=== PATIENT | female | born 1980 | race African-American/Black ===

== ENCOUNTER → 2022-09-19 12:58 | Outpatient (BNVA) | payer BC, SELFPAY | PROVIDERS: PCP Internal Medicine; Visit Provider Internal Medicine Rheumatology | DX: Z13.89 Encounter for screening for other disorder (principal) ==

== ENCOUNTER 2022-12-19 15:18 | Outpatient (REF) | payer BC, MEDICAID, SELFPAY ==
[2022-12-19 15:32] LABS: MANUAL DIFF FLAG NO
[2022-12-19 16:41] LABS: Basophils Absolute Auto 0.1 X10*3/uL (0.0-0.2); Basophils Percent Auto 1.1 % (0-2); Eosinophils Absolute Auto 0.3 X10*3/uL (0.0-0.4); Eosinophils Percent Auto 2.8 % (0-4); Hematocrit 34.7 % (37.0-47.0); Imm Gran Abs Auto 0.02 X10*3/uL (0.00-0.03); Imm Gran Pct Auto 0.2 % (0.0-0.4); Lymphocytes Absolute Auto 4.3 X10*3/uL (1.2-4.9); Lymphocytes Percent Auto 39.5 % (20-40); Mean Corpuscular HGB Conc 31.7 g/dl (31.0-35.0); Mean Corpuscular Hemoglobin 27.5 pg (27.0-33.0); Mean Corpuscular Volume 86.8 fL (80.0-98.0); Mean Platelet Volume 11.1 fL (9.4-12.3); Monocytes Absolute Auto 0.6 X10*3/uL (0.1-1.2); Monocytes Percent Auto 5.6 % (2-11); Neutrophils Absolute Auto 5.5 x10*3/uL (2.0-8.3); Neutrophils Percent Auto 50.8 % (45-73); Platelet Count 432 X10*3/uL (160-400); Red Cell Distribution Width 14.6 % (11.0-16.0); White Blood Count 10.9 X10*3/uL (4.8-10.8)
[2022-12-19 17:09] LABS: Alanine Aminotransferase 12 U/L (0-31); Alkaline Phosphatase 52 U/L (39-117); Anion Gap 15 (12-20); Aspartate Amino Transferase 18 U/L (5-31); Bilirubin Total 0.3 mg/dL (0.0-1.0); Blood Urea Nitrogen 9 mg/dL (9-16); C Reactive Protein 0.15 mg/dL (< or = 0.50); Calcium 9.6 mg/dL (8.4-10.2); Carbon Dioxide 23 mmol/L (22-29); Chloride 106 mmol/L (96-108); Estimated Glomerular Filt Rate > 60; Glucose Random 92 mg/dL (60-115); Potassium 3.9 mmol/L (3.3-5.1); Sodium 140 mmol/L (135-145); Total Protein 7.4 g/dL (6.5-8.0)
[2022-12-19 18:11] LABS: Erythrocyte Sedimentation Rate 49 MM/HR (0-20)
== END 2022-12-19 15:19 | disposition home or self-care (01) ==
LOC: HO.LAB 15:18
PROVIDERS: Visit Provider Internal Medicine Rheumatology
DX: M05.9 Rheumatoid arthritis with rheumatoid factor, unspecified (principal); Z79.899 Other long term (current) drug therapy
CPT/HCPCS: 36415; 80053; 85025; 85652; 86140

== ENCOUNTER 2023-01-19 07:52 | Outpatient (AMB) | payer BC, SELFPAY ==
--- NOTE | 2023-01-19 07:55 | MHC.OFFVIS ---
Intake Vital Signs 01/19/23 08:06 Height 5 ft 7 in Weight 186 lb 4.65 oz BMI 29.2 BP 108/62 Blood Pressure Location Rt brachial Position Sitting Pulse 76 Pulse Source Pulse Oximeter Temp 97.9 F Temp Source Skin Pulse Oximetry (%) 98 Oxygen Delivery Method Room Air Intake Visit Reasons: RA Intake Note: Patient here to yearly RA follow up. Patient requesting note for work stating she has RA. Will obtain FMLA form for flare ups. c/o dann hand pain, right shoulder pain [employer] Supervisor Required: No Accompanied by: Self / Same As Patient Allergies indomethacin [From Indocin] Adverse Reaction (Unknown, Unverified 01/19/23 07:55) Hives HPI HPI Comments History of Present Illness Details Patient returns for evaluation of her seropositive rheumatoid arthritis. When I had last seen her in September we agreed to restart her methotrexate 10 mg weekly. 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 She therefore did not restart the methotrexate. For most of the summer she had occasional flare-ups of RA that were minimal but over the last week she has had pain and swelling in the left shoulder and in the left wrist. She does take some djuq-kot-eoihlky analgesics for that. She also was seen in the ER with some flank pain in November. CT scan showed a kidney stone in the kidney but no passing stone. She apparently did have some hematuria so the concern was that she had passed a kidney stone. She does not recall prior problems with kidney stones. [facility] Medical History (Updated 01/19/23 @ 08:05 by Marvin Flower MD) ADHD (attention deficit hyperactivity disorder), inattentive type Generalized anxiety disorder History of COVID-19 Iron deficiency anemia Seropositive rheumatoid arthritis Surgical History Hx of tubal ligation Family History Mother Rheumatoid arthritis Diabetes History of thyroid disorder Father History of thyroid disorder Brother Rheumatoid arthritis Social History (Updated 01/19/23 @ 08:06 by CANDACE Pollard) Alcohol intake: current Alcohol intake frequency: holidays/special occasions only Alcohol type: wine Patient Tobacco Use Status: Never used Tobacco Current occupational status: employed 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 Details: Flank pain thought to be a kidney stone as noted above. Negative for dysuria, hematuria, nocturia, decreased force/flow and genital discharge Skin/Breast Details: Negative for itching, rash, hives, Raynaud's symptoms, sun sensitivity, and skin cancer Psych Details: Negative for anxiety, depression and stress Valentin/Lymph Details: Negative for excessive bruising or bleeding. Physical Exam Vital Signs: Last Vital Signs Temp 97.9 F 01/19/23 08:06 Pulse 76 01/19/23 08:06 BP 108/62 01/19/23 08:06 Pulse Ox 98 01/19/23 08:06 Oxygen Delivery Method Room Air 01/19/23 08:06 BMI result Body Mass Index 29.2 APPEARANCE: Patient in no acute distress EYES no redness, pupils equal and reactive to light, eyelids normal ABD: Normal bowel sounds, no organomegaly, masses or tenderness. No no CVA tenderness. EXTREMITIES: No edema, no calf tenderness, normal peripheral pulses. NEURO: Oriented and alert x3. No focal weakness. Reflexes symmetric. Gait normal. SKIN: No inflammatory or neoplastic lesions. Normal color and turgor JOINT EXAM: ?? Cervical Spine:.? Full range of motion without pain; no tenderness. Thoracic Spine:.? No scoliosis.? No tenderness on palpation. Lumbar Spine:.? Alignment normal.? Full range of motion without pain, no tenderness. Chest Wall:.? No tenderness, swelling, increased warmth or erythema. Hands:? Right: Normal pain-free range of motion without swelling or tenderness. No flexor tendon triggering, thenar atrophy or sensory loss.? Left:? Normal pain-free range of motion without tenderness, swelling, increased warmth or erythema. There is no flexor tendon triggering, thenar atrophy or sensory loss. Wrists:. Left: Mild to moderate pain with flexion extension at 30 degrees. There is tmcb-pf-[id number] tenderness with no swelling or redness. Right:? Normal pain-free range of motion without tenderness, swelling, increased warmth or erythema. Elbows:. Normal pain-free range of motion without tenderness, swelling, increased warmth or erythema. Shoulders:.??Left: Moderate pain with abduction at 90 degrees or with attempts at internal or external rotation. Uogj-dg-sorxjgvj anterior and subacromial tenderness without abductor weakness or adenopathy. No swelling or redness. Right: Full range of motion without pain. No tenderness, weakness, swelling, increased warmth or erythema. Hips:.? Full range of motion without pain. Hip bursa:.? No tenderness. Knees:.??Left: Mild discomfort with extremes of flexion extension.? There is mild medial compartment tenderness without redness or swelling.? There is no patellofemoral crepitus.? Right:? Normal pain-free range of motion without tenderness, swelling, increased warmth or erythema.? There is no effusion or crepitation Ankles:.? Normal pain-free range of motion without tenderness, swelling, increased warmth or erythema. Feet:.? Normal pain-free range of motion without tenderness, swelling, increased warmth or erythema. Tender points:.? No tenderness to digital palpation at the occiput, trapezius, second rib, lateral epicondyle, knees, greater trochanter and gluteal area bilaterally. ? 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 RF positive. CCP positive. Shoulders, hands. On methotrexate approx. 2011 to mid 2012 stopped meds in (2014) Tubal ligation 02/02: Hydroxychloroquine started - stopped Feb 2016 - recurrent URI 07/10: methotrexate restarted - missed doses in mid 2021 -2022 due to covid, no prescriber Code(s): M05.9 - Rheumatoid arthritis with rheumatoid factor, unspecified Plan She has some tender joints today. I think she should be back on the low-dose of methotrexate. We could consider a milder agent such as hydroxychloroquine but I think she had that in the past and it was not all that effective. I explained to her that the methotrexate or any other effective drug for RA is likely to cause some degree of immunosuppression. She should keep her immunization status up-to-date and wear a mask at work if she is exposed to sick people. She should see a urologist to follow through with a kidney stone. I think she is going to now restart the methotrexate 10 mg weekly. We will check lab work before next visit in 2 months. I am going to add lab work today as well as an iron level to see if we can explain why she is mildly anemic. It could be just results of her active disease. Orders: Orders IRON PROFILE Today D50.9 - Iron deficiency anemia, unspecified Alanine Aminotransferase Today M05.9 - Rheumatoid arthritis with rheumatoid factor, unspecified, Z79.899 - Other residential (current) drug therapy Aspartate Amino Transferase Today M05.9 - Rheumatoid arthritis with rheumatoid factor, unspecified, Z79.899 - Other residential (current) drug therapy Creatinine Today M05.9 - Rheumatoid arthritis with rheumatoid factor, unspecified, Z79.899 - Other residential (current) drug therapy C Reactive Protein Today M05.9 - Rheumatoid arthritis with rheumatoid factor, unspecified Complete Blood Count Auto Diff Today M05.9 - Rheumatoid arthritis with rheumatoid factor, unspecified, Z79.899 - Other superintendent marine [employer] (current) drug therapy Erythrocyte Sedimentation Rate Today M05.9 - Rheumatoid arthritis with rheumatoid factor, unspecified Medications: Refilled methotrexate sodium 10 mg (4 x 2.5 mg) PO QWEEK 48 tabs 1RF M05.9 - Rheumatoid arthritis with rheumatoid factor, unspecified Coding Level of Care Code Est Pt Level 3 (63645) Diagnoses correction use of drug Z79.899 Kidney stone on left side N20.0 Iron deficiency anemia D50.9 Seropositive rheumatoid arthritis M05.9
[2023-01-19 08:06] VITALS: BP 108/62; PULSE 76; TEMP 36.6; O2SAT 98; BMI 29.2
== END 2023-01-19 08:25 | disposition home or self-care (01) ==
PROVIDERS: Visit Provider Internal Medicine Rheumatology
DX: M05.79 Rheumatoid arthritis with rheumatoid factor of multiple sites without organ or systems involvement (principal); Z79.899 Other long term (current) drug therapy; N20.0 Calculus of kidney; D50.9 Iron deficiency anemia, unspecified
CPT/HCPCS: 99214

== ENCOUNTER 2023-01-19 07:52 | Outpatient (REF) | payer BC, SELFPAY ==
[2023-01-19 08:39] LABS: MANUAL DIFF FLAG NO
[2023-01-19 09:54] LABS: Basophils Absolute Auto 0.1 X10*3/uL (0.0-0.2); Basophils Percent Auto 0.6 % (0-2); Eosinophils Absolute Auto 0.4 X10*3/uL (0.0-0.4); Eosinophils Percent Auto 3.2 % (0-4); Hematocrit 34.6 % (37.0-47.0); Hemoglobin 11.1 g/dl (12.0-16.0); Imm Gran Abs Auto 0.03 X10*3/uL (0.00-0.03); Imm Gran Pct Auto 0.3 % (0.0-0.4); Lymphocytes Absolute Auto 4.6 X10*3/uL (1.2-4.9); Mean Corpuscular HGB Conc 32.1 g/dl (31.0-35.0); Mean Corpuscular Hemoglobin 27.9 pg (27.0-33.0); Mean Corpuscular Volume 86.9 fL (80.0-98.0); Mean Platelet Volume 10.5 fL (9.4-12.3); Monocytes Absolute Auto 0.8 X10*3/uL (0.1-1.2); Monocytes Percent Auto 6.6 % (2-11); Neutrophils Absolute Auto 5.6 x10*3/uL (2.0-8.3); Neutrophils Percent Auto 49.3 % (45-73); Platelet Count 444 X10*3/uL (160-400); Red Blood Count 3.98 X10*6/uL (4.20-5.50); Red Cell Distribution Width 14.8 % (11.0-16.0); White Blood Count 11.4 X10*3/uL (4.8-10.8)
[2023-01-19 10:13] LABS: Alanine Aminotransferase 10 U/L (0-31); Aspartate Amino Transferase 17 U/L (5-31); C Reactive Protein 0.46 mg/dL (< or = 0.50); Estimated Glomerular Filt Rate > 60; Iron 89 mcg/dL (30-160); Percent Iron Saturation 27 % (15-50); Total Iron Binding Capacity 325 mcg/dL (228-428); Unsaturated Iron Binding 236 ug/dL
[2023-01-19 10:36] LABS: Erythrocyte Sedimentation Rate 65 MM/HR (0-20)
== END 2023-01-19 07:53 | disposition home or self-care (01) ==
LOC: HO.LAB 07:52
PROVIDERS: Visit Provider Internal Medicine Rheumatology
DX: N20.0 Calculus of kidney (principal); D50.9 Iron deficiency anemia, unspecified; M05.9 Rheumatoid arthritis with rheumatoid factor, unspecified; Z79.899 Other long term (current) drug therapy
CPT/HCPCS: 36415; 82565; 83540; 84450; 84460; 85025; 85652; 86140

== ENCOUNTER 2023-05-17 13:50 | Outpatient (REF) | payer BC, SELFPAY ==
[2023-05-17 13:57] LABS: MANUAL DIFF FLAG NO
[2023-05-17 14:58] LABS: Basophils Absolute Auto 0.1 X10*3/uL (0.0-0.2); Basophils Percent Auto 0.9 % (0-2); Eosinophils Absolute Auto 0.4 X10*3/uL (0.0-0.4); Eosinophils Percent Auto 3.9 % (0-4); Hematocrit 33.4 % (37.0-47.0); Hemoglobin 10.6 g/dl (12.0-16.0); Imm Gran Abs Auto 0.02 X10*3/uL (0.00-0.03); Imm Gran Pct Auto 0.2 % (0.0-0.4); Lymphocytes Absolute Auto 3.9 X10*3/uL (1.2-4.9); Lymphocytes Percent Auto 41.3 % (20-40); Mean Corpuscular HGB Conc 31.7 g/dl (31.0-35.0); Mean Corpuscular Hemoglobin 27.6 pg (27.0-33.0); Mean Platelet Volume 10.8 fL (9.4-12.3); Monocytes Absolute Auto 0.6 X10*3/uL (0.1-1.2); Monocytes Percent Auto 6.4 % (2-11); Neutrophils Absolute Auto 4.5 x10*3/uL (2.0-8.3); Neutrophils Percent Auto 47.3 % (45-73); Platelet Count 409 X10*3/uL (160-400); Red Blood Count 3.84 X10*6/uL (4.20-5.50); Red Cell Distribution Width 15.2 % (11.0-16.0); White Blood Count 9.5 X10*3/uL (4.8-10.8)
[2023-05-17 16:17] LABS: Erythrocyte Sedimentation Rate 48 MM/HR (0-20)
[2023-05-17 16:20] LABS: Alanine Aminotransferase 9 U/L (0-31); Aspartate Amino Transferase 15 U/L (5-31); Estimated Glomerular Filt Rate > 60
== END 2023-05-17 13:51 | disposition home or self-care (01) ==
LOC: HO.LAB 13:50
PROVIDERS: PCP Internal Medicine; Visit Provider Internal Medicine Rheumatology
DX: M05.9 Rheumatoid arthritis with rheumatoid factor, unspecified (principal); Z79.899 Other long term (current) drug therapy
CPT/HCPCS: 36415; 82565; 84450; 84460; 85025; 85652; 86140

== ENCOUNTER 2023-05-18 10:56 | Outpatient (AMB) | payer BC, SELFPAY ==
[2023-05-18 10:57] VITALS: BP 112/78; PULSE 82; RESP 15; TEMP 36.5; BMI 28.8
--- NOTE | 2023-05-18 10:57 | MHC.OFFVIS ---
Intake Vital Signs 05/18/23 10:57 Height 5 ft 7 in Weight 183 lb 10.321 oz BMI 28.8 BP 112/78 Blood Pressure Location Lt brachial Position Sitting Respiration 15 Pulse 82 Pulse Source Palpation Temp 97.7 F Temp Source Tympanic Intake Visit Reasons: ra Allergies indomethacin [From Indocin] Adverse Reaction (Unknown, Unverified 05/18/23 11:07) Hives Medication List - Last Reconciled 05/18/23 by Chela Salomon RN albuterol sulfate 90 mcg/actuation 1 puff inhalation Q6H PRN betamethasone dipropionate 0.05% appl topical fluticasone propion-salmeterol 230-21 mcg/actuation (Advair HFA) 2 puffs inhalation BID fluticasone propionate 50 mcg/actuation 2 sprays intranasal DAILY folic acid 1 mg PO DAILY loratadine 10 mg PO DAILY methotrexate sodium 15 mg (6 x 2.5 mg) PO QWEEK montelukast 10 mg PO BEDTIME tiotropium bromide 1.25 mcg/actuation (Spiriva Respimat) 2 puffs inhalation DAILY HPI HPI Comments History of Present Illness Details The patient returns for evaluation of her rheumatoid arthritis. She remains on methotrexate 15 mg weekly, folic acid 1 mg daily, and occasional acetaminophen. She did have a flare-up of right shoulder pain a few weeks ago but it subsided after some Tylenol. She is on inhalers now and that has provided some stable control of her asthma. She has not had any significant recent infections. She has a low-grade anemia but is off the iron tablets now as the values in the previous testing showed her iron level was normal. [facility] Medical History History of COVID-19 Seropositive rheumatoid arthritis Iron deficiency anemia Generalized anxiety disorder ADHD (attention deficit hyperactivity disorder), inattentive type Surgical History Hx of tubal ligation Family History Mother Rheumatoid arthritis Diabetes History of thyroid disorder Father History of thyroid disorder Brother Rheumatoid arthritis Social History Alcohol intake: current Alcohol intake frequency: holidays/special occasions only Alcohol type: wine Patient Tobacco Use Status: Never used Tobacco Current occupational status: employed 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 Negative for appetite change, fever, chills, malaise Eyes Details: Negative for vision change, dry eyes,headaches and dizziness ENT Details: Negative for hearing change, tinnitus, oral ulcer, nose bleeds and oral dryness. Card Details: Negative chest pain, edema and syncope Resp Details: Negative for SOB, cough and wheezing GI Details: Negative indigestion/heartburn, nausea, abdominal pain, bowel changes, diarrhea, constipation and bloody stool. Endo Details: Negative for polyuria and polydypsia Valentin/Lymph Details: Negative for excessive bruising or bleeding. Physical Exam Vital Signs: Last Vital Signs Temp 97.7 F 05/18/23 10:57 Pulse 82 05/18/23 10:57 Resp 15 05/18/23 10:57 BP 112/78 05/18/23 10:57 BMI result Body Mass Index 28.8 APPEARANCE: Patient in no acute distress EYES no redness, pupils equal and reactive to light, eyelids normal EXTREMITIES: No edema, no calf tenderness, normal peripheral pulses. JOINT EXAM: ?? Cervical Spine:.? Full range of motion without pain; no tenderness. Thoracic Spine:.? No scoliosis.? No tenderness on palpation. Lumbar Spine:.? Alignment normal.? Full range of motion without pain, no tenderness. Chest Wall:.? No tenderness, swelling, increased warmth or erythema. Hands:? Right: Normal pain-free range of motion without swelling or tenderness. No flexor tendon triggering, thenar atrophy or sensory loss.? Left:? Normal pain-free range of motion without tenderness, swelling, increased warmth or erythema. There is no flexor tendon triggering, thenar atrophy or sensory loss. Wrists:. Left: Mild to moderate pain with flexion extension at 30 degrees. There is [id number]-kk-[id number] tenderness with no swelling or redness. Right:? Normal pain-free range of motion without tenderness, swelling, increased warmth or erythema. Elbows:. Normal pain-free range of motion without tenderness, swelling, increased warmth or erythema. Shoulders:.??Right: Slight discomfort with extremes of normal abduction or internal rotation. There is minimal anterior tenderness without adenopathy, swelling or abductor weakness. Left:: Full range of motion without pain. No tenderness, weakness, swelling, increased warmth or erythema. Hips:.? Full range of motion without pain. Hip bursa:.? No tenderness. Knees:.??Left: Mild discomfort with extremes of flexion or extension.? There is mild medial compartment tenderness without redness or swelling.? There is no patellofemoral crepitus.? Right:? Normal pain-free range of motion without tenderness, swelling, increased warmth or erythema.? There is no effusion or crepitation Ankles:.? Normal pain-free range of motion without tenderness, swelling, increased warmth or erythema. Feet:.? Normal pain-free range of motion without tenderness, swelling, increased warmth or erythema. Tender points:? No tenderness to digital palpation at the occiput, trapezius, second rib, lateral epicondyle, knees, greater trochanter and gluteal area bilaterally. ? 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 RF positive. CCP positive. Shoulders, hands. On methotrexate approx. 2011 to mid 2012 stopped meds in (2013) Tubal ligation 02/02: Hydroxychloroquine started - stopped Feb 2016 - recurrent URI 07/10: methotrexate restarted - missed doses in mid 2021 -2022 due to covid, no prescriber Code(s): M05.9 - Rheumatoid arthritis with rheumatoid factor, unspecified Plan Rheumatoid arthritis with good control of synovitis with current regimen. She does not seem to have any side effects with these medications so we will continue them as above. She runs still a low-grade anemia but has no microcytosis. The last iron levels were normal. We will keep an eye on this with another check on iron levels with her next blood work in about 3 months. She will continue with the methotrexate as above. I reviewed with her some rhocb-ed-pkszjj exercises for the shoulders. She seems to keep getting intermittent impingement and rotator cuff symptoms in either shoulder. Hopefully with bit more regular exercise program these can be avoided. Physical therapy could also be considered. A return visit at 3 months was recommended. Orders: Orders Erythrocyte Sedimentation Rate 1 Month M05.9 - Rheumatoid arthritis with rheumatoid factor, unspecified C Reactive Protein 1 Month M05.9 - Rheumatoid arthritis with rheumatoid factor, unspecified Alanine Aminotransferase Today M05.9 - Rheumatoid arthritis with rheumatoid factor, unspecified, Z79.899 - Other [facility] (current) drug therapy Aspartate Amino Transferase Today M05.9 - Rheumatoid arthritis with rheumatoid factor, unspecified, Z79.899 - Other [facility] (current) drug therapy Complete Blood Count Auto Diff 1 Month M05.9 - Rheumatoid arthritis with rheumatoid factor, unspecified, Z79.899 - Other salvage determiner (current) drug therapy Creatinine Today M05.9 - Rheumatoid arthritis with rheumatoid factor, unspecified, Z79.899 - Other [facility] (current) drug therapy Coding Level of Care Code Est Pt Level 3 (89429) Diagnoses emt intermediate use of drug Z79.899 Seropositive rheumatoid arthritis M05.9
== END 2023-05-18 11:45 | disposition home or self-care (01) ==
PROVIDERS: PCP Internal Medicine; Visit Provider Internal Medicine Rheumatology
DX: M05.79 Rheumatoid arthritis with rheumatoid factor of multiple sites without organ or systems involvement (principal); Z79.631 Long term (current) use of antimetabolite agent
CPT/HCPCS: 99214

== ENCOUNTER → 2023-05-18 10:56 | Outpatient (BNVA) | payer BC, SELFPAY | PROVIDERS: PCP Internal Medicine; Visit Provider Internal Medicine Rheumatology ==

== ENCOUNTER 2023-09-23 08:20 | Outpatient (REF) | payer BC, SELFPAY ==
[2023-09-23 08:37] LABS: MANUAL DIFF FLAG NO
[2023-09-23 08:57] LABS: Basophils Absolute Auto 0.1 X10*3/uL (0.0-0.2); Basophils Percent Auto 0.9 % (0-2); Eosinophils Absolute Auto 0.6 X10*3/uL (0.0-0.4); Imm Gran Abs Auto 0.03 X10*3/uL (0.00-0.03); Imm Gran Pct Auto 0.3 % (0.0-0.4); Lymphocytes Absolute Auto 3.9 X10*3/uL (1.2-4.9); Lymphocytes Percent Auto 43.7 % (20-40); Mean Corpuscular HGB Conc 31.3 g/dl (31.0-35.0); Mean Corpuscular Hemoglobin 26.5 pg (27.0-33.0); Mean Corpuscular Volume 84.7 fL (80.0-98.0); Mean Platelet Volume 10.1 fL (9.4-12.3); Monocytes Absolute Auto 0.6 X10*3/uL (0.1-1.2); Monocytes Percent Auto 6.7 % (2-11); Neutrophils Absolute Auto 3.7 x10*3/uL (2.0-8.3); Neutrophils Percent Auto 41.4 % (45-73); Platelet Count 473 X10*3/uL (160-400); Red Blood Count 3.78 X10*6/uL (4.20-5.50); Red Cell Distribution Width 15.4 % (11.0-16.0); White Blood Count 8.8 X10*3/uL (4.8-10.8)
[2023-09-23 09:47] LABS: Alanine Aminotransferase 15 U/L (0-31); Aspartate Amino Transferase 18 U/L (5-31); C Reactive Protein 0.21 mg/dL (< or = 0.50); Estimated Glomerular Filt Rate > 60
[2023-09-23 09:51] LABS: Erythrocyte Sedimentation Rate 57 MM/HR (0-20)
== END 2023-09-23 08:21 | disposition home or self-care (01) ==
LOC: HO.LAB 08:20
PROVIDERS: PCP Internal Medicine; Visit Provider Internal Medicine Rheumatology
DX: M05.9 Rheumatoid arthritis with rheumatoid factor, unspecified (principal); Z79.899 Other long term (current) drug therapy
CPT/HCPCS: 36415; 82565; 84450; 84460; 85025; 85652; 86140

== ENCOUNTER 2023-09-28 15:33 | Outpatient (REF) | payer BC, SELFPAY ==
[2023-09-28 16:56] LABS: MANUAL DIFF FLAG NO
[2023-09-28 18:24] LABS: Basophils Absolute Auto 0.1 X10*3/uL (0.0-0.2); Basophils Percent Auto 0.9 % (0-2); Eosinophils Absolute Auto 0.5 X10*3/uL (0.0-0.4); Eosinophils Percent Auto 5.4 % (0-4); Hematocrit 31.1 % (37.0-47.0); Imm Gran Abs Auto 0.01 X10*3/uL (0.00-0.03); Imm Gran Pct Auto 0.1 % (0.0-0.4); Lymphocytes Absolute Auto 4.3 X10*3/uL (1.2-4.9); Lymphocytes Percent Auto 42.7 % (20-40); Mean Corpuscular HGB Conc 32.2 g/dl (31.0-35.0); Mean Corpuscular Hemoglobin 27.4 pg (27.0-33.0); Mean Corpuscular Volume 85.2 fL (80.0-98.0); Mean Platelet Volume 10.4 fL (9.4-12.3); Monocytes Absolute Auto 0.6 X10*3/uL (0.1-1.2); Monocytes Percent Auto 6.2 % (2-11); Neutrophils Absolute Auto 4.5 x10*3/uL (2.0-8.3); Neutrophils Percent Auto 44.7 % (45-73); Platelet Count 499 X10*3/uL (160-400); Red Blood Count 3.65 X10*6/uL (4.20-5.50); Red Cell Distribution Width 15.9 % (11.0-16.0)
[2023-09-28 18:55] LABS: Alanine Aminotransferase 12 U/L (0-31); Albumin Level 4.1 g/dL (3.5-5.0); Alkaline Phosphatase 67 U/L (39-117); Anion Gap 13 (12-20); Aspartate Amino Transferase 17 U/L (5-31); Bilirubin Total 0.2 mg/dL (0.0-1.0); Blood Urea Nitrogen 10 mg/dL (9-16); C Reactive Protein 0.24 mg/dL (< or = 0.50); Calcium 9.3 mg/dL (8.4-10.2); Carbon Dioxide 24 mmol/L (22-29); Chloride 108 mmol/L (96-108); Estimated Glomerular Filt Rate > 60; Glucose Random 87 mg/dL (60-115); Iron 14 mcg/dL (30-160); Percent Iron Saturation 4 % (15-50); Potassium 3.8 mmol/L (3.3-5.1); Sodium 141 mmol/L (135-145); Total Iron Binding Capacity 346 mcg/dL (228-428); Total Protein 7.7 g/dL (6.5-8.0); Unsaturated Iron Binding 332 ug/dL; Uric Acid 3.2 mg/dL (2.4-5.7)
[2023-09-28 19:06] LABS: Erythrocyte Sedimentation Rate 57 MM/HR (0-20)
[2023-09-28 19:12] LABS: Ferritin 9 ng/mL (10-250)
[2023-09-28 19:47] LABS: Rheumatoid Factor 911.1 IU/mL (<15.0)
[2023-09-29 03:56] LABS: HBc Num1 0.19 S/CO (0.00-0.79); HBsAGNum1 0.24 S/CO (0.00-0.99); Hepatitis B Core Antibody Nonreactive (Nonreactive); Hepatitis B Surface Antigen Negative (Negative); ~HepC Num1 0.26 S/CO (0.00-0.79); ~Hepatitis B Surface Antibody REACTIVE (Nonreactive); ~Hepatitis C Antibody Nonreactive (Nonreactive)
[2023-09-29 04:27] LABS: Hepatitis A Antibody IgM 0.29 Index (0-0.79); ~Hepatitis A Antibody IgM Nonreactive (Nonreactive)
[2023-10-01 08:18] LABS: Anti Nuclear Antibody Screen NEGATIVE (NEGATIVE)
[2023-10-01 10:03] LABS: Transferrin 318 mg/dL (188-341)
[2023-10-02 14:33] LABS: Cyclic Citrullinated Peptide >250 UNITS
[2023-10-03 10:48] LABS: IgA 363 mg/dL (47-310); IgG 1551 mg/dL (600-1640); IgM 245 mg/dL (50-300)
[2023-10-03 16:29] LABS: Vitamin D 25-OH, D2 <4 ng/mL; Vitamin D 25-OH, D3 13 ng/mL; Vitamin D 25-OH, Total 13 ng/mL (30-100)
[2023-10-03 17:19] LABS: Complement C3 41 mg/dL (83-193)
[2023-10-03 17:59] LABS: Prot Elec - Alpha1 0.3 g/dL (0.2-0.3); Prot Elec - Alpha2 0.6 g/dL (0.5-0.9); Prot Elec - Beta 1 0.5 g/dL (0.4-0.6); Prot Elec - Beta 2 0.4 g/dL (0.2-0.5); Prot Elec - Gamma 1.4 g/dL (0.8-1.7); Prot Elec - Total Protein 7.1 g/dL (6.1-8.1)
[2023-10-05 08:04] LABS: Anti DNA DS Antibody 2 IU/mL; Antibody to SS-A Antigen <1.0 NEG AI (<1.0 NEG); Antibody to SS-B Antigen <1.0 NEG AI (<1.0 NEG); SM/Ribonucleoprotein Ab <1.0 NEG AI (<1.0 NEG); Scleroderma 70 Antibody <1.0 NEG AI (<1.0 NEG); Smith Protein <1.0 NEG AI (<1.0 NEG)
== END 2023-09-28 15:34 | disposition home or self-care (01) ==
LOC: HO.LAB 15:33
PROVIDERS: PCP Internal Medicine; Visit Provider Nurse Practitioner Family
DX: M05.9 Rheumatoid arthritis with rheumatoid factor, unspecified (principal); R70.0 Elevated erythrocyte sedimentation rate; E55.9 Vitamin D deficiency, unspecified; D50.8 Other iron deficiency anemias; Z79.899 Other long term (current) drug therapy
CPT/HCPCS: 36415; 80053; 82306; 82550; 82728; 82784; 83540; 84165; 84466; 84550; 85025; 85652; 86038; 86140; 86160; 86200; 86225; 86235; 86334; 86431; 86704; 86706; 86709; 86803; 87340

== ENCOUNTER 2023-09-28 15:33 | Outpatient (AMB) | payer BC, SELFPAY ==
--- NOTE | 2023-09-28 15:44 | MHC.OFFVIS ---
Vital Signs 09/28/23 15:51 Height 5 ft 7 in Weight 193 lb 12.581 oz BMI 30.3 BP 122/80 Pulse 70 Pulse Source Pulse Oximeter Pulse Oximetry (%) 99 Oxygen Delivery Method Room Air Intake Visit Reasons: RA/cm Intake Note: Patient last seen 05/18/[address] Flower, presents today for follow up and test results. Patient states she has been experiencing discoloration on both hands for 2 months. Her iron levels have been low as well. Quality Control Checker Required: No Accompanied by: Self / Same As Patient Allergies indomethacin [From Indocin] Adverse Reaction (Unknown, Unverified 09/28/23 15:44) Hives HPI Comments Details: Ms. Morales 43-year-old female returns for follow-up of her rheumatoid arthritis. She is currently on methotrexate 15 mg weekly, folic acid 1 mg daily, and occasional acetaminophen. She continues with a flare-up to her knees especially when she walks a lot and it is happening more frequently than normal. The swelling and soreness will last for a week and is helped by prednisone. She tends to want to push through the pain because she does not want to use the prednisone often. She she also gets flare-ups of right shoulder pain She continues on inhalers now and that has provided some stable control of her asthma. She has not had any significant recent infections. She complains of excessive fatigue. 05/18/2023 Dr. Flower: The patient returns for evaluation of her rheumatoid arthritis. She remains on methotrexate 15 mg weekly, folic acid 1 mg daily, and occasional acetaminophen. She did have a flare-up of right shoulder pain a few weeks ago but it subsided after some Tylenol. She is on inhalers now and that has provided some stable control of her asthma. She has not had any significant recent infections. She has a low-grade anemia but is off the iron tablets now as the values in the previous testing showed her iron level was normal. [facility] Medical History (Updated 10/06/23 @ 17:27 by ISIDRO Bolivar) Screening examination for infectious disease Hypovitaminosis D Elevated sed rate History of COVID-19 Seropositive rheumatoid arthritis Iron deficiency anemia Generalized anxiety disorder ADHD (attention deficit hyperactivity disorder), inattentive type Surgical History Hx of tubal ligation Family History Mother Rheumatoid arthritis Diabetes History of thyroid disorder Father History of thyroid disorder Brother Rheumatoid arthritis Social History Alcohol intake: current Alcohol intake frequency: holidays/special occasions only Alcohol type: wine Patient Tobacco Use Status: Never used Tobacco Current occupational status: employed 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 Regular rhythm, S1-S2 heard, no murmurs, rubs or gallops. LUNG:? Clear to percussion and auscultation EXTREMITIES: No edema, no calf tenderness, normal peripheral pulses. JOINT EXAM: Chest Wall:.? No tenderness, swelling, increased warmth or erythema. Hands:? Right: Normal pain-free range of motion without swelling or tenderness. No flexor tendon triggering, thenar atrophy or sensory loss.? Left:? Normal pain-free range of motion with mild tenderness, but no swelling, increased warmth or erythema. There is no flexor tendon triggering, thenar atrophy or sensory loss. Wrists:. Left: Mild to moderate pain with flexion extension at 30 degrees. There is [id number] tenderness with no swelling or redness. Right:? Normal pain-free range of motion without tenderness, swelling, increased warmth or erythema. Elbows:. Normal pain-free range of motion without tenderness, swelling, increased warmth or erythema. Shoulders:.??Right: Slight discomfort with extremes of normal abduction or internal rotation. There is minimal anterior tenderness without adenopathy, swelling or abductor weakness. Left:: Full range of motion without pain. No tenderness, weakness, swelling, increased warmth or erythema. Hips:.? Full range of motion without pain. Hip bursa:.? No tenderness. Knees:.??Left: discomfort with extremes of flexion or extension.? There is moderate medial compartment tenderness without redness or swelling.? There is no patellofemoral crepitus.? Right:? Normal pain-free range of motion with tenderness, but no swelling, increased warmth or erythema.? There is no effusion or crepitation Shoulders:.?? Full range of motion with discomfort to the right. Right shoulder Moderate tenderness, but no weakness, swelling, increased warmth or erythema. Ankles:.? Normal pain-free range of motion without tenderness, swelling, increased warmth or erythema. Feet:.? Normal pain-free range of motion without tenderness, swelling, increased warmth or erythema. Tender points:? No tenderness to digital palpation at the occiput, trapezius, second rib, lateral epicondyle, knees, greater trochanter and gluteal area bilaterally. ? Results Reviewed Results Reviewed: Laboratory Tests 09/23/23 09/28/23 08:36 16:54 WBC 8.8 RBC 3.78 L 3.65 L Hgb 10.0 L 10.0 L Hct 32.0 L 31.1 L Plt Count 473 H 499 H Eos % (Auto) 5.4 H ESR 57 H 57 H Creatinine 0.94 Iron 14 L TIBC 346 % Saturation 4 L Unsat Iron Binding 332 Transferrin 318 Ferritin 9 L AST 17 ALT 12 C-Reactive Protein 0.24 25-OH Vitamin D Total 13 L IgG Total 1551 IgA Total 363 H IgM 245 Rheumatoid Factor 911.1 H Cycl Citrul Peptide IgG >250 H Complement C3 41 L Complement C4 4 L Assessment & Plan Assessment & Plan (1) assisted use of drug: Code(s): Z79.899 - Other watermelon inspector (current) drug therapy Category: Medical (2) Seropositive rheumatoid arthritis: Comment: Onset~ 2010. RF positive. CCP positive. Shoulders, hands. On methotrexate approx. 2011 to mid 2012 stopped meds in (2013) Tubal ligation 02/02: Hydroxychloroquine started - stopped Feb 2016 - recurrent URI 07/10: methotrexate restarted - missed doses in mid 2021 -2022 due to covid, no prescriber Code(s): M05.9 - Rheumatoid arthritis with rheumatoid factor, unspecified Category: Medical (3) Iron deficiency anemia: Code(s): D50.9 - Iron deficiency anemia, unspecified Category: Medical Qualifiers: Iron deficiency anemia type: inadequate dietary iron intake Qualified Code(s): D50.8 - Other iron deficiency anemias (4) Elevated sed rate: Code(s): R70.0 - Elevated erythrocyte sedimentation rate Category: Medical (5) Hypovitaminosis D: Code(s): E55.9 - Vitamin D deficiency, unspecified Category: Medical Plan #Seropostive RA/Elevated ESR/CRP: Rheumatoid arthritis on MTX 15 mg QW and FOlic Acid 1 mg QD. Given chronic elevation of ESR/CRP, increase in Knee flares, shoulder pain, I do not think this RA is adequately control. I think patient would benefit from a Bio DMARD such as HUMIRA or Enbrel. However, patient is very afraid of needles and would prefer an oral medication such as RINVOQ. I explained to patient that the acceptable options may be based on insurance formulary. However, we will submit the PA for RINVOQ. The goal of adding a stronger DMARD is reduce the knee flares, and normalize ESR/CRP which evidences active disease, although the elevated ESR/CRP can also be related to the Anemia. #DAVID: She is again anemic with abnormal iron levels. We will restart Iron supplements. #Left Shoulder pain: Per patient this is really painful when it happens and she often needs the help of her to get things done. Likely impingement syndrome also present but there nay be some inflammatory overlay given uncontrolled RA. She will continue the PT exercises. And hopefully will improve when RA is better managed. #Hypo Vitamin D: 13L. Start D3 50 mcg QD. #Cottage Supervisor Use: We will discuss more at next visit the bio DMARD. Patient is aware to hold the medication in the event of fevers, infections, nonhealing wound or for surgery. We will obtain Hep Panel and T-BSpot for preparation. F/u 3 months I spent 40 minutes reviewing history, evaluating patient and documenting. Orders: Orders Immunoglobulins,IgG IgA IgM 09/28/23 M05.9 - Rheumatoid arthritis with rheumatoid factor, unspecified, R70.0 - Elevated erythrocyte sedimentation rate, D50.9 - Iron deficiency anemia, unspecified Complete Blood Count Auto Diff 09/28/23 M05.9 - Rheumatoid arthritis with rheumatoid factor, unspecified, R70.0 - Elevated erythrocyte sedimentation rate, D50.9 - Iron deficiency anemia, unspecified C Reactive Protein 09/28/23 M05.9 - Rheumatoid arthritis with rheumatoid factor, unspecified, R70.0 - Elevated erythrocyte sedimentation rate, D50.9 - Iron deficiency anemia, unspecified Hepatitis A,B,C Profile 09/28/23 M05.9 - Rheumatoid arthritis with rheumatoid factor, unspecified, R70.0 - Elevated erythrocyte sedimentation rate, D50.9 - Iron deficiency anemia, unspecified Immunofixation Pnl, Serum 09/28/23 M05.9 - Rheumatoid arthritis with rheumatoid factor, unspecified, R70.0 - Elevated erythrocyte sedimentation rate, D50.9 - Iron deficiency anemia, unspecified Protein Electrophoresis, Serum 09/28/23 M05.9 - Rheumatoid arthritis with rheumatoid factor, unspecified, R70.0 - Elevated erythrocyte sedimentation rate, D50.9 - Iron deficiency anemia, unspecified Sjogren's Antibodies 09/28/23 M05.9 - Rheumatoid arthritis with rheumatoid factor, unspecified, R70.0 - Elevated erythrocyte sedimentation rate, D50.9 - Iron deficiency anemia, unspecified Uric Acid 09/28/23 M05.9 - Rheumatoid arthritis with rheumatoid factor, unspecified, R70.0 - Elevated erythrocyte sedimentation rate, D50.9 - Iron deficiency anemia, unspecified Vitamin D 25-OH (D2 and D3) 09/28/23 M05.9 - Rheumatoid arthritis with rheumatoid factor, unspecified, R70.0 - Elevated erythrocyte sedimentation rate, D50.9 - Iron deficiency anemia, unspecified Cyclic Citrullinated Peptide 09/28/23 M05.9 - Rheumatoid arthritis with rheumatoid factor, unspecified, R70.0 - Elevated erythrocyte sedimentation rate, D50.9 - Iron deficiency anemia, unspecified IRON PROFILE 09/28/23 M05.9 - Rheumatoid arthritis with rheumatoid factor, unspecified, D50.9 - Iron deficiency anemia, unspecified Complement C3 09/28/23 M05.9 - Rheumatoid arthritis with rheumatoid factor, unspecified, R70.0 - Elevated erythrocyte sedimentation rate, D50.9 - Iron deficiency anemia, unspecified Complement C4 09/28/23 M05.9 - Rheumatoid arthritis with rheumatoid factor, unspecified, R70.0 - Elevated erythrocyte sedimentation rate, D50.9 - Iron deficiency anemia, unspecified FARRAH Reflex Titer and Pattern 09/28/23 M05.9 - Rheumatoid arthritis with rheumatoid factor, unspecified, R70.0 - Elevated erythrocyte sedimentation rate, D50.9 - Iron deficiency anemia, unspecified Anti DNA DS Antibody 09/28/23 M05.9 - Rheumatoid arthritis with rheumatoid factor, unspecified, R70.0 - Elevated erythrocyte sedimentation rate, D50.9 - Iron deficiency anemia, unspecified Anti Extractable Nuclear Ag 09/28/23 M05.9 - Rheumatoid arthritis with rheumatoid factor, unspecified, R70.0 - Elevated erythrocyte sedimentation rate, D50.9 - Iron deficiency anemia, unspecified Comprehensive Met. Panel 09/28/23 M05.9 - Rheumatoid arthritis with rheumatoid factor, unspecified, R70.0 - Elevated erythrocyte sedimentation rate, D50.9 - Iron deficiency anemia, unspecified Creatine Kinase Total 09/28/23 M05.9 - Rheumatoid arthritis with rheumatoid factor, unspecified, R70.0 - Elevated erythrocyte sedimentation rate, D50.9 - Iron deficiency anemia, unspecified Erythrocyte Sedimentation Rate 09/28/23 M05.9 - Rheumatoid arthritis with rheumatoid factor, unspecified, R70.0 - Elevated erythrocyte sedimentation rate, D50.9 - Iron deficiency anemia, unspecified Scleroderma 70 Antibody 09/28/23 M05.9 - Rheumatoid arthritis with rheumatoid factor, unspecified, R70.0 - Elevated erythrocyte sedimentation rate, D50.9 - Iron deficiency anemia, unspecified Rheumatoid Factor 09/28/23 M05.9 - Rheumatoid arthritis with rheumatoid factor, unspecified, R70.0 - Elevated erythrocyte sedimentation rate, D50.9 - Iron deficiency anemia, unspecified Ferritin 09/28/23 M05.9 - Rheumatoid arthritis with rheumatoid factor, unspecified, D50.9 - Iron deficiency anemia, unspecified Transferrin 09/28/23 M05.9 - Rheumatoid arthritis with rheumatoid factor, unspecified, D50.9 - Iron deficiency anemia, unspecified Coding Level of Care Code Est Pt Level 4 (86485) Complex EM visit Add On G2211 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
[2023-09-28 15:51] VITALS: BP 122/80; PULSE 70; O2SAT 99; BMI 30.3
== END 2023-09-28 16:36 | disposition home or self-care (01) ==
PROVIDERS: PCP Internal Medicine; Visit Provider Nurse Practitioner Family
DX: M05.79 Rheumatoid arthritis with rheumatoid factor of multiple sites without organ or systems involvement (principal); Z79.899 Other long term (current) drug therapy; D50.8 Other iron deficiency anemias; R70.0 Elevated erythrocyte sedimentation rate; E55.9 Vitamin D deficiency, unspecified
CPT/HCPCS: 99215

== ENCOUNTER 2023-11-29 11:25 | Outpatient (REF) | payer BC, SELFPAY ==
[2023-11-30 11:38] LABS: Complement C3 42 mg/dL (83-193)
[2023-12-02 01:48] LABS: TS Negative Control Passed; TS Panel A 2; TS Panel B 3; TS Positive Control Passed; TSpotTB Negative (Negative)
== END 2023-11-29 11:26 | disposition home or self-care (01) ==
LOC: HO.LAB 11:25
PROVIDERS: PCP Internal Medicine; Visit Provider Nurse Practitioner Family
DX: M05.9 Rheumatoid arthritis with rheumatoid factor, unspecified (principal); R70.0 Elevated erythrocyte sedimentation rate; D50.9 Iron deficiency anemia, unspecified; Z11.9 Encounter for screening for infectious and parasitic diseases, unspecified
CPT/HCPCS: 36415; 86160; 86481

== ENCOUNTER 2023-12-26 15:43 | Outpatient (AMB) | payer MEDICAID, SELFPAY ==
--- NOTE | 2023-12-26 16:04 | A.OFFVIS_ITS ---
Vital Signs 12/26/23 16:05 Height 5 ft 7 in Weight 196 lb 3.382 oz BMI 30.7 BP 120/72 Blood Pressure Location Lt brachial Position Sitting Pulse 77 Pulse Source Pulse Oximeter Pulse Oximetry (%) 97 Oxygen Delivery Method Room Air Intake Visit Reasons: RA/CM Intake Note: Patient last seen 09/28/23, presents today for follow up and test results. Allergies indomethacin [From Indocin] Adverse Reaction (Unknown, Unverified 12/26/23 16:07) Hives Medication List - Last Reconciled 12/26/23 by Jax No MD albuterol sulfate 90 mcg/actuation 1 puff inhalation Q6H PRN betamethasone dipropionate 0.05% appl topical cholecalciferol (vitamin D3) 50 mcg PO DAILY ferrous sulfate 325 mg PO DAILY fluticasone propion-salmeterol 230-21 mcg/actuation (Advair HFA) 2 puffs inhal ation BID fluticasone propionate 50 mcg/actuation 2 sprays intranasal DAILY folic acid 1 mg PO DAILY loratadine 10 mg PO DAILY methotrexate sodium 15 mg (6 x 2.5 mg) PO QWEEK montelukast 10 mg PO BEDTIME tiotropium bromide 1.25 mcg/actuation (Spiriva Respimat) 2 puffs inhalation DAILY upadacitinib ER (Rinvoq) 15 mg PO DAILY HPI Comments Details: This is a 43-year-old female with seropositive RA who presents for follow-up. After last visit it was determined that methotrexate was in adequate for her symptoms, Rinvoq was discussed, Rinvoq was approved and patient took it regularly for approximately 6 weeks then she discontinued it about 2 weeks ago due to flu-like illness associated with flare-up of her asthma. She tested negative for COVID. She states that she gets intermittent joint pains but she believes that the Rinvoq was effective. She also discontinued the methotrexate as soon as she started Rinvoq. She mentions that she had shingles infection on her right upper back years ago, treated with antivirals [facility] Medical History (Updated 12/26/23 @ 16:46 by Jax No MD) Hypovitaminosis D History of COVID-19 Seropositive rheumatoid arthritis Iron deficiency anemia Generalized anxiety disorder ADHD (attention deficit hyperactivity disorder), inattentive type Surgical History Hx of tubal ligation Family History Mother Rheumatoid arthritis Diabetes History of thyroid disorder Father History of thyroid disorder Brother Rheumatoid arthritis Social History Alcohol intake: current Alcohol intake frequency: holidays/special occasions only Alcohol type: wine Patient Tobacco Use Status: Never used Tobacco Current occupational status: employed 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 Review of Systems Card Reports dyspnea Resp Reports dyspnea and Reports wheezing Musc Reports arthralgias and Denies stiffness Aller/Immun Reports wheezing Physical Exam Vital Signs: Last Vital Signs Pulse 77 12/26/23 16:05 BP 120/72 12/26/23 16:05 Pulse Ox 97 12/26/23 16:05 Oxygen Delivery Method Room Air 12/26/23 16:05 BMI result Body Mass Index 30.7 Const General: cooperative, healthy appearing and comfortable Nutritional Appearance: overweight Orientation/consciousness: patient oriented x3 Limitations: no limitations HEENT Head: Yes normocephalic and Yes atraumatic Mouth: moist mucous membranes Resp Effort & Inspection: normal respiratory effort and able to speak in complete sentences Auscultation: wheezes Cardio Rate: regular rate Rhythm: regular rhythm Skin General skin exam: no rashes or lesions noted Neuro General: patient oriented x3 Extrem Other: No active synovitis today Normal nailfold capillaroscopy No knee pain with full flexion-extension No ankle swelling or tenderness bilaterally Results Reviewed Results Reviewed: [facility] Result Report Patient: Shabbir Morales Date of Service: 04/01/22 B ? ? Patient Gender: Female Ordering Provider: Ladonna Virk : 1980 ? ? ? Final CAT SCAN OF CHEST NO CONTRAST Exam Date: 04/01/2022 1:49 PM Ordering Diagnosis: Moderate persistent asthma with status asthmaticusSOB (shortness of breath) on exertion ? CT CHEST ? HISTORY: Dyspnea, abnormal pulmonary function test. ? TECHNIQUE: Chest CT was performed utilizing contiguous noncontrasted axial images from the thoracic inlet to below the diaphragm. The images were reformatted in the coronal and sagittal planes. Radiation dosage is 7.7mGy ? COMPARISON: CTA chest from 06/09/2021 ? FINDINGS: ? Base of neck: The thyroid and base of the neck are within normal limits. ? Mediastinum: The heart is normal in size, trace pericardial effusion. No mediastinal lymphadenopathy. ? Lungs: Evaluation of the lung parenchyma demonstrates apical pleural-parenchymal scarring. No pulmonary nodules, masses, or pleural fluid collections. The trachea and mainstem bronchi are patent. ? Upper Abdomen: Limited visualization of the extreme upper abdomen are within normal limits. ? MSK: Soft tissues are normal. The osseous structures are intact. ? IMPRESSION IMPRESSION: No acute thoracic pathology. ? Reading Radiologist: :Last Pulmonary function Test showed: Date: July 21, 2021 Spirometry: FVC 90% predicted. ?FEV1 90% predicted. ?FEV1/FVC 85%. ?No significant response to bronchodilator. Lung volumes: TLC 78% predicted. ?RV 66% predicted. ? Diffusing capacity: The uncorrected diffusing capacity is moderately reduced at 15 or 55% predicted. Interpretation: Normal spirometry and mildly reduced lung volumes. ?The patient has also a moderately reduced diffusing capacity. ?Differential diagnosis includes early interstitial lung disease or pulmonary vascular disease. ?Clinical and radiographic correlation is advised. Assessment & Plan Assessment & Plan (1) Seropositive rheumatoid arthritis: Comment: Onset~ 2010 +++positive+++CCP positive MTX 2011 to mid 2012 stopped meds in (2013) Tubal ligation 02/02: Hydroxychloroquine started - stopped Feb 2016 - recurrent URI 07/10: methotrexate restarted - missed doses in mid 2021 -2022 due to covid, no prescriber. MTX self DC 10/2023 as she started Rinvoq Rinvoq started 10/2023 effective Code(s): M05.9 - Rheumatoid arthritis with rheumatoid factor, unspecified Category: Medical Plan: This is a 43-year-old female with seropositive RA who presents for follow-up. This is her 1st visit with me. After last visit patient started Rinvoq 15 mg p.o. daily she noticed significant improvement, she also self-discontinued her methotrexate. She held the Rinvoq, 2 weeks ago due to respiratory tract infection associated with asthma exacerbation. She tested negative for COVID On exam today there is no active synovitis. Advised patient to resume her Rinvoq 15 mg p.o. daily . We will DC methotrexate and folic acid at this time and continue with Rinvoq monotherapy, if additional DMARDs are needed, can consider restarting methotrexate Labs before next visit in 3 months (2) alf use of drug: Code(s): Z79.899 - Other terminal press operator (current) drug therapy Category: Medical Plan: Monitor safety labs on Rinvoq (3) Immunization counseling: Code(s): Z71.85 - Encounter for immunization safety counseling Category: Medical Plan: Discussed risk of infection associated with Rinvoq. Specifically of viral infections such as shingles. Patient had a shingles infection a few years ago. Advised patient to get the Shingrix vaccine, hold Rinvoq 3 days before and after each vaccination dose Plan Patient is her 1st visit with me. I spent 46 minutes reviewing patient's chart, looking at old records from [place], evaluating patient, ordering diagnostic workup, counseling patient and documenting in the chart Orders: Orders Complete Blood Count Auto Diff 3 Months M05.9 - Rheumatoid arthritis with rheumatoid factor, unspecified, Z79.899 - Other terminal press operator (current) drug therapy Comprehensive Met. Panel 3 Months M05.9 - Rheumatoid arthritis with rheumatoid factor, unspecified, Z79.899 - Other terminal press operator (current) drug therapy C Reactive Protein 3 Months M05.9 - Rheumatoid arthritis with rheumatoid factor, unspecified, Z79.899 - Other care home (current) drug therapy Erythrocyte Sedimentation Rate 3 Months M05.9 - Rheumatoid arthritis with rheumatoid factor, unspecified, Z79.899 - Other terminal press operator (current) drug therapy Medications: Discontinued methotrexate sodium Discontinued Reason: Doctor's Order 15 mg (6 x 2.5 mg) PO QWEEK 72 tabs 1RF M05.9 - Rheumatoid arthritis with rheumatoid factor, unspecified folic acid Discontinued Reason: Doctor's Order 1 mg PO DAILY 90 tabs 3RF M05.9 - Rheumatoid arthritis with rheumatoid factor, unspecified Coding Level of Care Code Est Pt Level 5 (68000) Diagnoses Seropositive rheumatoid arthritis M05.9 alf use of drug Z79.899 Immunization counseling Z71.85
[2023-12-26 16:05] VITALS: BP 120/72; PULSE 77; O2SAT 97; BMI 30.7
== END 2023-12-26 16:35 | disposition home or self-care (01) ==
PROVIDERS: PCP Internal Medicine; Visit Provider Student in an Organized Health Care Education/Training Program
DX: M05.79 Rheumatoid arthritis with rheumatoid factor of multiple sites without organ or systems involvement (principal); Z79.899 Other long term (current) drug therapy; Z71.85 Encounter for immunization safety counseling
CPT/HCPCS: 99215

== ENCOUNTER → 2023-12-26 15:43 | Outpatient (BNVA) | payer BC, SELFPAY | PROVIDERS: PCP Internal Medicine; Visit Provider Student in an Organized Health Care Education/Training Program | DX: M05.9 Rheumatoid arthritis with rheumatoid factor, unspecified (principal); Z79.899 Other long term (current) drug therapy; Z71.85 Encounter for immunization safety counseling | CPT/HCPCS: 99212 ==

== ENCOUNTER 2024-03-01 14:22 | Outpatient (AMB) | payer MEDICAID, SELFPAY ==
--- NOTE | 2024-03-01 14:29 | A.OFFVIS_ITS ---
Vital Signs 03/01/24 14:34 Height 5 ft 7 in Weight 205 lb 0.478 oz BMI 32.1 BP 112/72 Blood Pressure Location Rt brachial Position Sitting Pulse 81 Pulse Source Pulse Oximeter Pulse Oximetry (%) 98 Oxygen Delivery Method Room Air Intake Visit Reasons: RA Intake Note: Patient presents for RA. Allergies indomethacin [From Indocin] Adverse Reaction (Unknown, Verified 03/01/24 14:33) Hives Medication List - Last Reconciled 03/01/24 by Jax No MD albuterol sulfate 90 mcg/actuation 1 puff inhalation Q6H PRN betamethasone dipropionate 0.05% appl topical cholecalciferol (vitamin D3) 50 mcg PO DAILY ferrous sulfate 325 mg PO DAILY fluticasone propion-salmeterol 230-21 mcg/actuation (Advair HFA) 2 puffs inhalation BID fluticasone propionate 50 mcg/actuation 2 sprays intranasal DAILY loratadine 10 mg PO DAILY montelukast 10 mg PO BEDTIME prednisone Take 3 tabs daily for 1 week, 2 tabs daily for 1 week, 1 tab daily for 1 week then stop tiotropium bromide 1.25 mcg/actuation (Spiriva Respimat) 2 puffs inhalation DAILY upadacitinib ER (Rinvoq) 15 mg PO DAILY HPI Comments Details: This is a 43-year-old female with seropositive RA who presents for follow-up. She is on Rinvoq 15 mg p.o. daily. She states that she was doing well until about 2 weeks ago when she started having recurrent flare-ups affecting multiple joints including her hands, wrists, forearm, knees. Been taking Tylenol. She does not take NSAIDs. She states that this is the longest flare she has been through. FOR[facility]LY [facility] Medical History Hypovitaminosis D History of COVID-19 Seropositive rheumatoid arthritis Iron deficiency anemia Generalized anxiety disorder ADHD (attention deficit hyperactivity disorder), inattentive type Surgical History Hx of tubal ligation Family History Mother Rheumatoid arthritis Diabetes History of thyroid disorder Father History of thyroid disorder Brother Rheumatoid arthritis Social History Alcohol intake: current Alcohol intake frequency: holidays/special occasions only Alcohol type: wine Patient Tobacco Use Status: Never used Tobacco Current occupational status: employed 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 Review of Systems [facility] [place] Reports arthralgias, Reports joint swelling and Denies stiffness Physical Exam Vital Signs: Last Vital Signs Pulse 81 03/01/24 14:34 BP 112/72 03/01/24 14:34 Pulse Ox 98 03/01/24 14:34 Oxygen Delivery Method Room Air 03/01/24 14:34 BMI result Body Mass Index 32.1 Const General: cooperative, healthy appearing and comfortable Nutritional Appearance: overweight Orientation/consciousness: patient oriented x3 Limitations: no limitations HEENT Head: Yes normocephalic and Yes atraumatic Mouth: moist mucous membranes Resp Effort & Inspection: normal respiratory effort and able to speak in complete sentences Auscultation: clear to auscultation bilaterally and no wheezes Cardio Rate: regular rate Rhythm: regular rhythm Skin General skin exam: no rashes or lesions noted Neuro General: patient oriented x3 Extrem Other: Right 3rd MCP swelling and tenderness Right 4th MCP tenderness Reduced right hand manager regional sales strength Left wrist pain with full flexion No elbow pain with flexion-extension Mildly limited abduction of left shoulder No knee swelling or tenderness bilaterally No knee pain with with flexion-extension bilaterally Results Reviewed Results Reviewed: [facility] Imaging Result Report Patient: Shabbir Morales Date of Service: 04/01/22 ? ? Patient Gender: Female Ordering Provider: Ladonna Virk : 1980 ? ? ? Final CAT SCAN OF CHEST NO CONTRAST Exam Date: 04/01/2022 1:49 PM Ordering Diagnosis: Moderate persistent asthma with status asthmaticusSOB (shortness of breath) on exertion ? CT CHEST ? HISTORY: Dyspnea, abnormal pulmonary function test. ? TECHNIQUE: Chest CT was performed utilizing contiguous noncontrasted axial images from the thoracic inlet to below the diaphragm. The images were reformatted in the coronal and sagittal planes. Radiation dosage is 7.7mGy ? COMPARISON: CTA chest from 06/09/2021 ? FINDINGS: ? Base of neck: The thyroid and base of the neck are within normal limits. ? Mediastinum: The heart is normal in size, trace pericardial effusion. No mediastinal lymphadenopathy. ? Lungs: Evaluation of the lung parenchyma demonstrates apical pleural-parenchymal scarring. No pulmonary nodules, masses, or pleural fluid collections. The trachea and mainstem bronchi are patent. ? Upper Abdomen: Limited visualization of the extreme upper abdomen are within normal limits. ? MSK: Soft tissues are normal. The osseous structures are intact. ? IMPRESSION IMPRESSION: No acute thoracic pathology. ? Reading Radiologist: :Last Pulmonary function Test showed: Date: July 21, 2021 Spirometry: FVC 90% predicted. ?FEV1 90% predicted. ?FEV1/FVC 85%. ?No significant response to bronchodilator. Lung volumes: TLC 78% predicted. ?RV 66% predicted. ? Diffusing capacity: The uncorrected diffusing capacity is moderately reduced at 15 or 55% predicted. Interpretation: Normal spirometry and mildly reduced lung volumes. ?The patient has also a moderately reduced diffusing capacity. ?Differential diagnosis includes early interstitial lung disease or pulmonary vascular disease. ?Clinical and radiographic correlation is advised. Assessment & Plan Assessment & Plan (1) Seropositive rheumatoid arthritis: Comment: Onset~ 2010 +++positive+++CCP positive MTX 2011 to mid 2012 stopped meds in (2013) Tubal ligation 02/02: Hydroxychloroquine started - stopped Feb 2016 - recurrent URI 07/10: methotrexate restarted - missed doses in mid 2021 -2022 due to covid, no prescriber. MTX self DC 10/2023 as she started Rinvoq Rinvoq started 10/2023 effective Code(s): M05.9 - Rheumatoid arthritis with rheumatoid factor, unspecified Category: Medical Plan: This is a 43-year-old female with seropositive RA who presents for follow-up. She has been doing fairly well on Rinvoq until about 2 weeks ago when she started having flare-ups affecting multiple joints. On exam she has multiple swollen and tender joints. Start prednisone taper for relief. Check blood work today. Advised patient that if she she still gets recurrent flare-ups while on Rinvoq, we may consider adding methotrexate or changing her DMARDs Labs before next visit in 3 months (2) terminal manager use of drug: Code(s): Z79.899 - Other nursing home (current) drug therapy Category: Medical Plan: Monitor safety labs on Rinvoq Plan I spent 26 minutes reviewing patient's chart, evaluating patient, ordering diagnostic workup, counseling patient and documenting in the chart Orders: Orders Complete Blood Count Auto Diff Today M05.9 - Rheumatoid arthritis with rheumatoid factor, unspecified Comprehensive Met. Panel Today M05.9 - Rheumatoid arthritis with rheumatoid factor, unspecified C Reactive Protein Today M05.9 - Rheumatoid arthritis with rheumatoid factor, unspecified Erythrocyte Sedimentation Rate Today M05.9 - Rheumatoid arthritis with rheumatoid factor, unspecified Medications: New prednisone Take 3 tabs daily for 1 week, 2 tabs daily for 1 week, 1 tab daily for 1 week then stop 42 tabs 0RF Coding Level of Care Code Est Pt Level 4 (02148) Complex EM visit Add On G2211 Diagnoses Seropositive rheumatoid arthritis M05.9 terminal manager use of drug Z79.899
[2024-03-01 14:34] VITALS: BP 112/72; PULSE 81; O2SAT 98; BMI 32.1
== END 2024-03-01 14:56 | disposition home or self-care (01) ==
PROVIDERS: PCP Internal Medicine; Visit Provider Student in an Organized Health Care Education/Training Program
DX: M05.79 Rheumatoid arthritis with rheumatoid factor of multiple sites without organ or systems involvement (principal); Z79.899 Other long term (current) drug therapy
CPT/HCPCS: 99214

== ENCOUNTER 2024-03-01 14:22 | Outpatient (REF) | payer MEDICAID, SELFPAY ==
[2024-03-01 15:16] LABS: MANUAL DIFF FLAG NO
[2024-03-01 15:31] LABS: Basophils Absolute Auto 0.1 X10*3/uL (0.0-0.2); Basophils Percent Auto 0.7 % (0-2); Eosinophils Absolute Auto 0.4 X10*3/uL (0.0-0.4); Eosinophils Percent Auto 4.2 % (0-4); Hematocrit 34.2 % (37.0-47.0); Hemoglobin 11.3 g/dl (12.0-16.0); Imm Gran Abs Auto 0.02 X10*3/uL (0.00-0.03); Imm Gran Pct Auto 0.2 % (0.0-0.4); Lymphocytes Absolute Auto 3.9 X10*3/uL (1.2-4.9); Lymphocytes Percent Auto 41.7 % (20-40); Mean Corpuscular Hemoglobin 29.7 pg (27.0-33.0); Mean Corpuscular Volume 89.8 fL (80.0-98.0); Mean Platelet Volume 9.9 fL (9.4-12.3); Monocytes Absolute Auto 0.7 X10*3/uL (0.1-1.2); Monocytes Percent Auto 7.2 % (2-11); Neutrophils Absolute Auto 4.3 x10*3/uL (2.0-8.3); Platelet Count 432 X10*3/uL (160-400); Red Blood Count 3.81 X10*6/uL (4.20-5.50); Red Cell Distribution Width 13.7 % (11.0-16.0); White Blood Count 9.4 X10*3/uL (4.8-10.8)
[2024-03-01 15:57] LABS: Alanine Aminotransferase 15 U/L (0-31); Alkaline Phosphatase 53 U/L (39-117); Anion Gap 11 (12-20); Aspartate Amino Transferase 20 U/L (5-31); Bilirubin Total 0.2 mg/dL (0.0-1.0); Blood Urea Nitrogen 11 mg/dL (9-16); C Reactive Protein 0.43 mg/dL (< or = 0.50); Calcium 9.4 mg/dL (8.4-10.2); Carbon Dioxide 26 mmol/L (22-29); Chloride 107 mmol/L (96-108); Estimated Glomerular Filt Rate > 60; Glucose Random 90 mg/dL (60-115); Potassium 4.2 mmol/L (3.3-5.1); Sodium 140 mmol/L (135-145); Total Protein 7.4 g/dL (6.5-8.0)
[2024-03-01 16:10] LABS: Erythrocyte Sedimentation Rate 45 MM/HR (0-20)
== END 2024-03-01 14:23 | disposition home or self-care (01) ==
LOC: HO.LAB 14:22
PROVIDERS: PCP Internal Medicine; Visit Provider Student in an Organized Health Care Education/Training Program
DX: M05.9 Rheumatoid arthritis with rheumatoid factor, unspecified (principal); Z79.899 Other long term (current) drug therapy
CPT/HCPCS: 36415; 80053; 85025; 85652; 86140; 99212

== ENCOUNTER 2024-03-11 04:48 | Emergency (ER) | payer OTHER, SELFPAY ==
--- NOTE | ~2024-03-11 | XR_ITS ---
EXAMINATION: XR KNEE, RIGHT CLINICAL INFORMATION: Arthritis, pain COMPARISON: None available. TECHNIQUE: Four views of the right knee. FINDINGS: Small joint effusion. Evaluation limited on lateral view due to patient positioning. Mild narrowing of the medial compartment. Mild tricompartmental degenerative changes. There is a subtle oval sclerotic area overlying the proximal diaphysis of the tibia. XR/XR knee RT 4V IMPRESSION: Mild tricompartmental degenerative changes.A subtle oval sclerotic area overlying the proximal diaphysis of the tibia. This study was presented today March 11, 2024 for interpretation. Stat results provided at this time as requested by referring provider. Electronically signed by: Feli Webb MD 03/11/2024 08:47 AM EDT RP
--- NOTE | 2024-03-11 04:51 | ED_ITS ---
HPI - General Adult General Chief complaint: General Medical Stated complaint: hx RA, bilat leg pain,[facility] 1x day pain meds n/w Time Seen by Provider: 03/11/24 04:51 Source: patient Mode of arrival: ambulatory Limitations: no limitations History of Present Illness ED Provider: mac MCCRACKEN narrative: Patient has seropositive rheumatoid arthritis used to be on methotrexate now for last few months taking Rinvoq 15 mg daily was doing well until 2 weeks ago when started having recurrent flare-ups affecting multiple joints including her hands wrist forearms and knees was seen by her hospice bereavement coordinator on 03/01 started on prednisone course still having the pain now pain is so much that she has difficulty in walking Related Data Home Medications ?Medication ?Instructions ?Recorded ?Confirmed albuterol sulfate 90 mcg/actuation 1 puff inhalation Q6H PRN dyspnea 09/12/22 12/26/23 aerosol inhaler betamethasone dipropionate 0.05 % appl topical 09/12/22 12/26/23 topical cream fluticasone propionate 230 2 puff inhalation BID 09/12/22 12/26/23 mcg-salmeterol 21 mcg/actuation HFA inhaler (Advair HFA) fluticasone propionate 50 2 spray intranasal DAILY 09/12/22 12/26/23 mcg/actuation nasal spray,suspension loratadine 10 mg tablet 10 mg PO DAILY 09/12/22 12/26/23 montelukast 10 mg tablet 10 mg PO BEDTIME 09/12/22 12/26/23 tiotropium bromide 1.25 2 puff inhalation DAILY 09/12/22 12/26/23 mcg/actuation mist for inhalation (Spiriva Respimat) Previous Rx's ?Medication ?Instructions ?Recorded ferrous sulfate 325 mg (65 mg 325 mg PO DAILY #90 tabs 10/02/23 iron) tablet cholecalciferol (vitamin D3) 50 50 mcg PO DAILY #90 caps 10/05/23 mcg (2,000 unit) capsule upadacitinib 15 mg tablet,extended 15 mg PO DAILY #30 tabs 10/27/23 release 24 hr (Rinvoq) prednisone 5 mg tablet See Rx Instructions PO .COMPLEX 03/01/24 #42 tabs folic acid 1 mg tablet 1 mg PO DAILY #90 tabs 03/11/24 methotrexate sodium 2.5 mg tablet 2.5 mg PO 4XW #48 tabs 03/11/24 Allergies Allergy/AdvReac Type Severity Reaction Status Date / Time indomethacin [From Indocin] AdvReac Unknown Hives Verified 03/11/24 04:56 Review of Systems Review of Systems: Yes all other systems are reviewed and are negative [facility] Past Medical History Medical History Hypovitaminosis D History of COVID-19 Seropositive rheumatoid arthritis Iron deficiency anemia Generalized anxiety disorder ADHD (attention deficit hyperactivity disorder), inattentive type Surgical History Hx of tubal ligation Family History Family History Mother Rheumatoid arthritis Diabetes History of thyroid disorder Father History of thyroid disorder Brother Rheumatoid arthritis Social History Social History Alcohol intake: current Alcohol intake frequency: holidays/special occasions only Alcohol type: wine Patient Tobacco Use Status: Never used Tobacco Smoked in Last 30 Days: No Use of substances other than those prescribed or required for medical reasons: No Advance Directives: No Advance Directives Information Provided: Yes Do you have a plan to hurt others: No Plan Patient : No Current occupational status: employed 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 Oriented X3. No acute distress. Eyes: PERRLA, No Nystagmus ENT: Pharynx normal. Oral Mucosa moist Neck: Normal inspection. Neck supple. CVS: Normal heart rate and rhythm. Pulses normal. Respiratory: No respiratory distress. Equal air entry bilateral, no wheezing/rales/rhonchi Abdomen: Soft and nontender. Bowel sounds are present, no mass palpable, no CVA tenderness Skin: Skin warm and dry. Normal skin color. Normal skin turgor. Extremities: No lower extremity edema. No calf tenderness diffuse tenderness bilateral knee no significant capsules swelling or effusion swelling of the right 3rd and 4th MCP joint Neuro: Oriented X 3. No motor deficit. No sensory deficit.No cerebellar signs , cranial nerves II-XII intact Medications Administered Discontinued Medications Generic Name Dose Route Start Last Admin Trade Name Lorie PRN Reason Stop Dose Admin Dexamethasone 10 mg 03/11/24 04:59 03/11/24 05:10 Dexamethasone 2 Mg Tablet PO 03/11/24 05:00 10 mg ONCE ONE Administration Oxycodone HCl 10 mg 03/11/24 05:01 03/11/24 05:10 Oxycodone Hcl Immed Release 5 Mg Tablet PO 03/11/24 05:02 10 mg ONCE ONE Administration Medical Decision Making Medical Decision Making MDM Narrative: Patient's hospice bereavement coordinator Dr. No notes were reviewed planning to start on methotrexate if pain continues along with 2nd course of prednisone which she started yesterday methotrexate prescription was refilled Independent Interpretation I performed an independent interpretation of an: Plain X-Ray Interpretation: Negative for effusion Discharge Plan Discharge Clinical Impression: Seropositive rheumatoid arthritis Patient Disposition: Home, Self-Care Instructions: Rheumatoid Arthritis (ED) Additional Instructions: Continue medication for rheumatoid arthritis as by your hospice bereavement coordinator Start taking methotrexate, continue prednisone Follow up with your hospice bereavement coordinator Prescriptions: New methotrexate sodium 2.5 mg tablet 2.5 mg PO 4XW Qty: 48 0RF folic acid 1 mg tablet 1 mg PO DAILY Qty: 90 0RF No Action ferrous sulfate 325 mg (65 mg iron) tablet 325 mg PO DAILY Qty: 90 1RF cholecalciferol (vitamin D3) 50 mcg (2,000 unit) capsule 50 mcg PO DAILY Qty: 90 2RF Rinvoq 15 mg tablet extended release 24 hr 15 mg PO DAILY Qty: 30 3RF betamethasone dipropionate 0.05 % cream topical Spiriva Respimat 1.25 mcg/actuation mist 2 puff inhalation DAILY loratadine 10 mg tablet 10 mg PO DAILY albuterol sulfate 90 mcg/actuation HFA aerosol inhaler 1 puff inhalation Q6H PRN (Reason: dyspnea) montelukast 10 mg tablet 10 mg PO BEDTIME fluticasone propion-salmeterol [Advair HFA] 230-21 mcg/actuation HFA aerosol inhaler 2 puff inhalation BID fluticasone propionate 50 mcg/actuation spray,suspension 2 spray intranasal DAILY prednisone 5 mg tablet See Rx Instructions PO .COMPLEX Qty: 42 0RF Rx Instructions: Take 3 tabs daily for 1 week, 2 tabs daily for 1 week, 1 tab daily for 1 week then stop Print Language: Namibian
[2024-03-11 04:54] VITALS: BP 140/98; PULSE 78; O2SAT 92
[2024-03-11 04:55] VITALS: BMI 31.8
[2024-03-11 04:56] VITALS: BP 147/80; PULSE 94; RESP 17; TEMP 36.9; O2SAT 94
[2024-03-11] MEDS: dexAMETHasone 2 MG TABLET 10 MG PO (05:10)
[2024-03-11] MEDS: oxyCODONE HCl Immed Release 5 MG TABLET 10 MG PO (05:10)
[2024-03-11 08:18] VITALS: BP 147/80; PULSE 94; RESP 17; TEMP 36.9; O2SAT 94
== END 2024-03-11 08:18 | disposition home or self-care (01) ==
PROVIDERS: Emergency Provider Internal Medicine; PCP Internal Medicine
DX: M05.9 Rheumatoid arthritis with rheumatoid factor, unspecified (principal); M25.569 Pain in unspecified knee; R26.2 Difficulty in walking, not elsewhere classified; Z79.899 Other long term (current) drug therapy
CPT/HCPCS: 73564; 99283; 99284; J8540

== ENCOUNTER 2024-06-03 15:44 | Outpatient (AMB) | payer OTHER, SELFPAY ==
[2024-06-03 16:01] VITALS: BP 134/78; PULSE 68; O2SAT 99; BMI 32.1
--- NOTE | 2024-06-03 16:01 | MHC.OFFVIS ---
Vital Signs 06/03/24 16:01 Height 5 ft 7 in Weight 204 lb 12.951 oz BMI 32.1 BP 134/78 Blood Pressure Location Lt brachial Position Sitting Pulse 68 Pulse Source Pulse Oximeter Pulse Oximetry (%) 99 Oxygen Delivery Method Room Air Intake Visit Reasons: RA Intake Note: Patient last seen by Doctor Jax No on 03/01/24. Presents today for RA follow up and test results. Patient would like refill of vitamin D. She would also like to talk about the Rinvoq. Allergies indomethacin [From Indocin] Adverse Reaction (Unknown, Verified 06/03/24 16:02) Hives Medication List - Last Reconciled 06/03/24 by Jax No MD albuterol sulfate 90 mcg/actuation 1 puff inhalation Q6H PRN betamethasone dipropionate 0.05% appl topical cholecalciferol (vitamin D3) 50 mcg PO DAILY fluticasone propion-salmeterol 230-21 mcg/actuation (Advair HFA) 2 puffs inhalation BID fluticasone propionate 50 mcg/actuation 2 sprays intranasal DAILY loratadine 10 mg PO DAILY montelukast 10 mg PO BEDTIME tiotropium bromide 1.25 mcg/actuation (Spiriva Respimat) 2 puffs inhalation DAILY upadacitinib ER (Rinvoq) 15 mg PO DAILY HPI Comments Details: This is a 44-year-old female with seropositive RA who presents for follow-up. Patient stated that she was doing well in March when she was taking her Rinvoq regularly, throughout April she had a couple of upper respiratory tract infections and was sick almost all month, she did not have to go to the hospital or take antibiotics. She was not taking her Rinvoq, she had run out of her Rinvoq. She states that 3 days ago she was having significant right foot pain, she could not walk, she took ibuprofen with some improvement. Today she just feels that her hands are stiff [facility] Medical History Hypovitaminosis D History of COVID-19 Seropositive rheumatoid arthritis Iron deficiency anemia Generalized anxiety disorder ADHD (attention deficit hyperactivity disorder), inattentive type Surgical History Hx of tubal ligation Family History Mother Rheumatoid arthritis Diabetes History of thyroid disorder Father History of thyroid disorder Brother Rheumatoid arthritis Social History Alcohol intake: current Alcohol intake frequency: holidays/special occasions only Alcohol type: wine Patient Tobacco Use Status: Never used Tobacco Current occupational status: employed 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 Review of Systems [facility] [place] Reports arthralgias, Reports joint swelling and Denies stiffness Physical Exam Vital Signs: Last Vital Signs Pulse 68 06/03/24 16:01 BP 134/78 06/03/24 16:01 Pulse Ox 99 06/03/24 16:01 Oxygen Delivery Method Room Air 06/03/24 16:01 BMI result Body Mass Index 32.1 Const General: cooperative, healthy appearing and comfortable Nutritional Appearance: overweight Orientation/consciousness: patient oriented x3 Limitations: no limitations HEENT Head: Yes normocephalic and Yes atraumatic Mouth: moist mucous membranes Resp Effort & Inspection: normal respiratory effort and able to speak in complete sentences Auscultation: clear to auscultation bilaterally and no wheezes Cardio Rate: regular rate Rhythm: regular rhythm Skin General skin exam: no rashes or lesions noted Neuro General: patient oriented x3 Extrem Other: No wrist swelling, tenderness or pain with full flexion-extension bilaterally Negative MCP squeeze test bilaterally Mildly reduced bilateral hand currency exchange specialist strength No swollen joints noted both hands and wrists Normal pain-free range of motion of elbows and shoulders No knee pain with full flexion-extension bilaterally No ankle swelling or tenderness bilaterally Negative MTP squeeze test bilaterally Assessment & Plan Assessment & Plan (1) Seropositive rheumatoid arthritis: Comment: Onset~ 2010 +++positive+++CCP positive MTX 2011 to mid 2012 stopped meds in (2013) Tubal ligation 02/02: Hydroxychloroquine started - stopped Feb 2016 - recurrent URI 07/10: methotrexate restarted - missed doses in mid 2021 -2022 due to covid, no prescriber. MTX self DC 10/2023 as she started Rinvoq Rinvoq started 10/2023 effective Code(s): M05.9 - Rheumatoid arthritis with rheumatoid factor, unspecified Category: Medical Plan: This is a 44-year-old female with seropositive RA who presents for follow-up. Patient has not been doing well recently as she has not been taking her Rinvoq for over a month. She has run out. Advised patient to restart her Rinvoq as soon as possible, we discussed compliance. Discussed with patient that Rinvoq does not necessarily need to be held with every mild infection. In her case she has high-risk of flare. Advised patient to call the clinic when in doubt Labs before next visit in 3 months (2) senior care use of drug: Code(s): Z79.899 - Other supervisor intermediates (current) drug therapy Category: Medical Plan: Monitor safety labs on Rinvoq (3) Immunization counseling: Code(s): Z71.85 - Encounter for immunization safety counseling Category: Medical Plan: Advised patient to get the flu vaccine, RSV vaccine this season Advised patient to also get the Shingrix vaccine Plan I spent 26 minutes reviewing patient's chart, evaluating patient, ordering diagnostic workup, counseling patient and documenting in the chart Orders: Orders Complete Blood Count Auto Diff 3 Months M05.9 - Rheumatoid arthritis with rheumatoid factor, unspecified, Z79.899 - Other supervisor intermediates (current) drug therapy C Reactive Protein 3 Months M05.9 - Rheumatoid arthritis with rheumatoid factor, unspecified, Z79.899 - Other detention (current) drug therapy Erythrocyte Sedimentation Rate 3 Months M05.9 - Rheumatoid arthritis with rheumatoid factor, unspecified, Z79.899 - Other supervisor intermediates (current) drug therapy Comprehensive Met. Panel 3 Months M05.9 - Rheumatoid arthritis with rheumatoid factor, unspecified, Z79.899 - Other supervisor intermediates (current) drug therapy Medications: Refilled upadacitinib ER (Rinvoq) 15 mg PO DAILY 30 tabs 3RF M05.9 - Rheumatoid arthritis with rheumatoid factor, unspecified Discontinued methotrexate sodium Discontinued Reason: Doctor's Order 2.5 mg PO 4XW 48 tabs 0RF folic acid Discontinued Reason: Doctor's Order 1 mg PO DAILY 90 tabs 0RF ferrous sulfate Discontinued Reason: Doctor's Order 325 mg PO DAILY 90 tabs 1RF D50.9 - Iron deficiency anemia, unspecified Coding Level of Care Code Est Pt Level 4 (60266) Complex EM visit Add On G2211 Diagnoses Seropositive rheumatoid arthritis M05.9 senior care use of drug Z79.899 Immunization counseling Z71.85
== END 2024-06-03 16:35 | disposition home or self-care (01) ==
PROVIDERS: PCP Internal Medicine; Visit Provider Student in an Organized Health Care Education/Training Program
DX: M05.79 Rheumatoid arthritis with rheumatoid factor of multiple sites without organ or systems involvement (principal); Z79.899 Other long term (current) drug therapy; Z71.85 Encounter for immunization safety counseling
CPT/HCPCS: 99214; G2211

== ENCOUNTER → 2024-06-03 15:44 | Outpatient (BNVA) | payer MEDICAID, SELFPAY | PROVIDERS: PCP Internal Medicine; Visit Provider Student in an Organized Health Care Education/Training Program | DX: M05.9 Rheumatoid arthritis with rheumatoid factor, unspecified (principal); Z71.85 Encounter for immunization safety counseling; Z79.899 Other long term (current) drug therapy | CPT/HCPCS: 99212 ==

== ENCOUNTER 2024-06-22 09:26 | Outpatient (REF) | payer OTHER, SELFPAY ==
--- OUTSIDE RECORDS SUMMARY | 2024-06-22 09:29 | XMS_ITS | Encounter Summary ---
Author Organization [facility] [place] [address] Care Team Providers Care Insurance Inspector Name Role Phone Trino Peterson MD Primary Care Provider [phone] Reason for Visit * Reason Onset Date Comments Results 04/29/2024 Encounter Details Date Type Department Care Team (Late st Contact Info) Description 04/29/2024 Telephone Obstetrics and [facility]necology - [address] [place] [phone] Viki Elkins MA Results Social History Tobacco Use Types Packs/Day Years Used Date Smoking Tobacco: Never Smokeless Tobacco: Never Alcohol Use Standard Drinks/Week Comments Not Currently 1 (1 standard drink = 0.6 oz pur e alcohol) Housing Instability Answer Date Recorde d Are you worried that in the next 2 months you may not have stable housing? No 05/06/2024 Food Access & Nutrition Answer Date Rec orded Do you have access to a vari ety of food including fruits and vegetables? Yes 05/06/2024 Health Literacy Answer Date Recorded How often do you need to hav e someone help you when you read instructions, pamphlets, or other written material from your doctor or pharmacy? Never 05/06/2024 Caregiver: How often do you need to have someone help you when you read instructions, pamphlets, or other written material from your doctor or pharmacy? Not on file 05/06/2024 Financial Risk Answer Date Recorded How hard is it for you to pa y for the very basics like food, housing, medical care, and air conditioning / heating? Not very hard 05/06/2024 Transportation Answer Date Recorded Has the lack of transportati on kept you from meetings, work, or from getting things needed for daily living? No Has the lack of transportati on kept you from medical appointments or from getting medications? No 05/06/2024 Social Isolation Answer Date Recorded How often do you feel lonely or isolated from th ose around you? Never 05/06/2024 Food Risk Answer Date Recorded Within the past 12 months we worried whether our food would run out before we got money to buy more. Never true 05/06/2024 Within the past 12 months th e food we bought just didn't last and we didn't have money to get more. Never true 05/06/2024 Dependent Care Answer Date Recorded Do you need help finding or paying for care for your loved ones. For example, early childhood associate teacher or elderly care for an older adult? No 05/06/2024 Education Answer Date Recorded Do you think completing more education or training, like finishing a GED, going to college, or learning a trade, would be helpful for you? N/A 05/06/2024 Employment and Income Answer Date Recor ded During the last four weeks, have you been actively looking for work? No 05/06/2024 Living Situation Answer Date Recorded What is your living situation? 1 07/07/2023 Sex and Gender Information Value Date Recorded Sex Assigned at Not on file Gender Identity Not on file Sexual Orientation Not on file Job Start Date Occupation Industry Not on file Not on file Not on file documented as of this encounter Progress Notes * Viki Elkins MA - 04/29/2024 10:49 AM EST Called and left a message for patient to call the office back, yahir MARIA * Viki Elkins MA - 04/29/2024 10:48 AM EST ----- Message from Angus Tejada DO sent at 04/28/2024 1:44 PM EST ----- US reviewed. She should be scheduled for US follow up and EMB. Thank you! Minnie Tejada DO documented in this encounter Plan of Treatment Upcoming Encounters Date Type Department Care Team (Late st Contact Info) Description 07/29/2024 3:00 PM EDT Office Visit Pulmonolgy - [place] [address] [place] [address] Ladonna Virk NP [address] [place] [address] documented as of this encounter Visit Diagnoses Not on filedocumented in this encounter Additional Health Concerns Infection Onset Date Last Indicated Resolved Time Herpes simplex 04/24/2024 04/24/2024 documented as of this encounter Care Teams Insurance Inspector Relationship Specialty Start Date End Date Trino Peterson MD [address] [place] [phone] PCP - General Internal Medicine 04/23/24 documented as of this encounter
--- OUTSIDE RECORDS SUMMARY | 2024-06-22 09:29 | XMS_ITS | Continuity of Care Document ---
Author Organization [facility] Address [address] [place] [address] [place] [address] Phone Care Team Providers Care Bodywork Therapist Name Role Phone Unavailable Unavailable Unavailable Allergies, Adverse Reactions, Alerts Substance Reaction Status Criticality No Known Drug Allergies Resolved No I nformation Procedures Procedure Date ESTABLISHED OFFICE/OUTPATIENT VISIT I TB INTRADERMAL TEST (PPD) Advance Directives Directive Yes / No Effective Date File Name Resuscitation Not Answered N/A N/A Life Support Not Answered N/A N/A Intubation Not Answered N/A N/A Antibiotics Not Answered N/A N/A IV Fluid Support Not Answered N/A N/A Tube Feed Not Answered N/A N/A Other Directive N/A N/A WARNING:The information contained in this section is historical and is provided for information only and does not constitute a legal document or any assurance that the information is still accurate. Please verify the information with the de jesus of the legal document before using it for clinical purposes. Encounters Encounter Description Practice Location Reason(s) For Visit Diagnoses Date Provider Providers Copied on Encounter ESTABLISHED OFFICE/OUTPAT IENT VISIT [facility], [address] [place] [address], [id number], tel:[phone] [facility] [place] work physical (chief complaint) Other PE No Information Family History Family Member Type Diagnosis Age At Onset No Information Payers Payer name Insurance type Covered democrat ID Authoriza tion(s) No Information Social History Type Description Quantity Date Captured Comments Alcohol Use Details No Caffeine Use Details coffee Tobacco Use Status No Information Smoking Status No Information Sex Female Vital Signs Date / Time: Height Weight BMI Pulse Rate Blood Pressure Temperature Respiratory Rate Body Surface Area Head Circumference Head Circ. Percentile Wt./Darryl. Percentile BMI percentile Pulse Ox Inhaled Ox 10:31 AM 67.00 in 79.800 kg (175.00 lbs) 27.4 1 kg/m eter (2) 64 /min 106/62 mm[Hg] 97.00 F 20 /min Chief Complaint And Reason For Visit From encounter dated '03/16/2011 09:45'. work physical (chief complaint) Reason For Referral Reason For Referral No Information History Of Present Illness Encounter Date Complaint History Of Prese nt Illness No Information Functional Status Date Functional Assessmen t No Information Instructions Date Instruction Additional Infor mation No Information Assessments Type Assessment Date No Information Mental Status Date Cognitive Assessment Orientation - [place] ed to time, place, person, situation. Patient Care Teams Name Effective Dates (start - stop) Status Members No Information
--- OUTSIDE RECORDS SUMMARY | 2024-06-22 09:29 | XMS_ITS | Clinical Summary ---
Author Organization [facility] [address] [facility] Address [address] [place] [address] Phone Care Team Providers Care [employer] Name Role Phone Trino Peterson MD Primary Care Provider [phone] Allergies Active Allergy Reactions Criticality Noted Date Comments Indomethacin Hives,Rash 07/31/2015 Medications Medication Sig Dispensed Refills Start Date End Date Status fluticasone furoate-vilantero L (BREO ELLIPTA) 200-25 mcg/dose inhaler Inhale 1 puff by mouth. 02/18/2024 Active tiotropium (Spiriva Respimat) 2.5 mcg/actuation inhalation spray Inhale 1 puff by mouth. 02/18/2024 Active acetaminophen (TYLENOL) 500 mg tablet TAKE 2 TABLETS BY MOUTH 4 TIMES A DAY NEEDED FOR PAIN FOR 7 DAYS 02/01/2024 Active ferrous sulfate 325 mg (65 mg elemental iron) tablet Take 1 tablet (325 mg total) by mouth 1 (one) time each day. 10/02/2023 Active cholecalciferol (VITAMIN D-3) 50 mcg (2,000 unit) capsule Take 1 capsule (2,000 Units total) by mouth 1 (one) time each day. 10/05/2023 Active albuterol 2.5 mg /3 mL (0.083 %) nebulizer solution Take 1 Vial by nebulization every 4 hours as needed for Wheezing, Shortness of Breath or Cough for up to 180 days. 12/27/2023 Active albuterol sulfate (ProAir RespiClick) 90 mcg/actuation aerosol powdr breath activated Inhale 108 mcg into the lungs every 6 hours as needed for Other (SOB). 12/27/2023 Active fluticasone propionate (FLONASE) 50 mcg/actuation nasal spray SPRAY 2 SPRAYS BY NASAL ROUTE DAILY 12/27/2023 Active betamethasone, augmented, (DIPROLENE-AF) 0.05 % cream Apply to eczema patches twice a day for up to 14 days then as needed 09/14/2023 Active hydrOXYzine HCL (ATARAX) 25 mg tablet Take 1-2 tablets (25-50 mg total) by mouth. 09/14/2023 Active loratadine (CLARITIN) 10 mg tablet Take 1 tablet (10 mg total) by mouth 1 (one) time each day. 08/14/2023 Active montelukast (SINGULAIR) 10 mg tablet Take 1 tablet (10 mg total) by mouth. 08/14/2023 Active methotrexate 2.5 mg tablet Take 1 tablet (2.5 mg total) by mouth 07/12/2023 Active folic acid (FOLVITE) 1 mg tablet Take 1 tablet (1,000 mcg total) by mouth 1 (one) time each day. 10/20/2021 Active dupilumab (DUPIXENT) 300 mg/2 mL penIndications:Se ellis persistent asthma with (acute) exacerbation (CMS/HCC),Chronic obstructive pulmonary disease, unspecified COPD type (CMS/HCC) Inject 2 mL (300 mg total) under the skin every 14 (fourteen) days. 4 mL 11 04/30/2024 Active ipratropium (ATROVENT) 21 mcg (0.03 %) nasal spray Administer 2 sprays into each nostril 2 (two) times a day. 05/08/2024 Active levonorgestreL (MIRENA) 21 mcg/24hr (up to 8 yrs) 52 mg IUDIndications:En counter for IUD insertion 1 Device (1 each total) by intrauterine route 1 (one) time. 05/29/2024 Active benralizumab (Fasenra) 30 mg/mL syringe Inject 1 mL into the skin every 28 days. Please Inject subcutaneously 1 ml(30 mg) every 4 weeks for 3 months then 1 ml(30 mg) every 8 weeks 03/14/2024 5 Discontinued (Alternate therapy) azithromycin (Zithromax Z-Good) 250 mg tabletIndications :Chronic obstructive pulmonary disease with acute lower respiratory infection (CMS/HCC) Take 2 tablets (500 mg total) by mouth 1 (one) time each day for 1 day, THEN 1 tablet (250 mg total) 1 (one) time each day for 4 days. 6 each 05/20/2024 5 Hospital, Clinic, or Other Facility Administered Medication Ordered Dose Route Frequency Start Date End Date Status ibuprofen (ADVIL,MOTRIN) tablet 800 mgIndications:Menorr hagia with regular cycle,Thickened endometrium 800 mg oral Once 05/07/2024 Active levonorgestreL (MIRENA) 21 mcg/24hr (up to 8 yrs) 52 mg IUD 52 mgIndications:Encoun ter for IUD insertion 52 mg utrn Once PRN Procedure 05/29/2024 05/29/2024 Ended Active Problems Problem Noted Date Diagnosed Date COPD (chronic obstructive pulmonary disease) Mild persistent asthma with acute exacerbation 0 09/03/2021 Attention deficit hyperactiv ity disorder (ADHD), predominantly inattentive type 08/28/2020 Generalized anxiety disorder 04/29/2019 Severe persistent asthma with (acute) exacerbati on 04/29/2019 Class 1 obesity due to exces s calories with serious comorbidity and body mass index (BMI) of 31.0 to 31.9 in adult 04/29/2019 Iron deficiency anemia 09/13/2018 Fibroadenoma of breast determined by biopsy 11/20 Seropositive rheumatoid arthritis 08/21/2012 Overview (04/08/2024): Onset~ 2010. RF positive. CCP positive. Shoulders, hands. On methotrexate approx. 2011 to mid 2012 stopped meds in (2013) Tubal ligation 02/02: Hydroxychloroquine started - stopped Feb 2016 - recurrent URI 07/10: methotrexate restarted Chronic rhinitis 10/06/2011 Eczema 08/15/2011 Encounters Date Type Department Care Team Description 05/30/2024 Telephone Pulmonolgy [facility] [address] [facility] [address] [place] [address] Helena Lawrence MA 05/29/2024 1:00 PM EST Procedure visit [facility]etrics [facility] - [facility] [address] [place], [place] [address], [place] [phone] Minnie Tejada DO Encounter for IUD insertion (Primary Dx); test negative 05/23/2024 [facility] [address] [place] [address] Minnie Tejada DO irregular bleeding 05/16/2024 [facility] [address] [place] [address] Minnie Tejada DO Emergency Visit 05/14/2024 9:30 AM EST Office Visit [address] [phone] Ladonna Virk NP Severe persistent asthma with (acute) exacerbation (CMS/HCC) (Primary Dx); Chronic obstructive pulmonary disease, unspecified COPD type (CMS/HCC); Seropositive rheumatoid arthritis (CMS/HCC); Iron deficiency anemia due to chronic blood loss; Chronic rhinitis 05/14/2024 [facility] [address] [place] [address] iMnnie Tejada DO 05/13/2024 Telephone [facility] [address] [phone] Ladonna Virk NP medication 05/13/2024 Tele[facility] [address] [place], [place] [address], [place] [phone] Minnie Tejada DO Contraception 05/07/2024 10:45 AM EST [facility] [address] [place], [place] [address], [place] [phone] Minnie Tejada DO Thickened endometrium (Primary Dx); test negative; Menorrhagia with regular cycle 04/29/2024 Telephone Obstetrics and Gynecology - [address] [phone] Viki Elkins MA Results 04/26/2024 Telephone [facility] [address] [phone] Helena Lawrence MA Medication Problem (Fasenra); Med Change Request (Dupixent) 04/25/2024 4:31 PM EST - 04/25/2024 11:59 PM EST Hospital Encounter Radiology Department - [address] [phone] Pelvic pain Discharge Disposition: Home or Self Care 04/24/2024 2:15 PM EST Office Visit Obstetrics and Gynecology - [address] [phone] Vannessa Schmidt CNM Labial lesion (Primary Dx) 04/23/2024 3:30 PM EST Office Visit Obstetrics and Gynecology - [address] [phone] Delmis Rogers CNM Vaginal irritation (Primary Dx); Pelvic pain 04/22/2024 Telephone Obstetrics and Gynecology - [address] [phone] Vannessa Schmidt CNM Vaginal/vulvar Complaint 04/10/2024 Telephone Internal Medicine - [address] [phone] Trino Peterson MD Referral (External Rheumatology) 04/04/2024 Telephone [facility] [address] [phone] Ladonna Virk NP Med Refill (Prescription form) 03/27/2024 Telephone [facility] [address] [phone] Ladonna Virk NP Prior authorization from Last 3 Months Immunizations Name Administration Dates Next Due HPV, Quadrivalent 07/25/2008,2008 Influenza Quadravalent, MDCK , 0.5ml, preservative free (Flucelvax) 6mo and older 05/27/2022 Influenza trivalent, 0.5mL, preservative free (Fluarix; FluLaval; Fluzone) ages 6mo and older (Afluria) 3 years and older 04/06/2015,03/12/2014,03/26/2008 PPD Test 03/24/2017,08/20/2003 Pfizer SARS-CoV-2 COVID-19, mRNA, LNP-S, preservative free 12/28/2021,09/07/2020,08/12/2020 Tdap Tetanus diptheria acell ular pertussis (Boostrix; Adacel) 7yo and older 04/29/2019,03/26/2008 Surgical History Surgery Date Site/Laterality Comments TUBAL LIGATION 2013 PROCEDURE: HISTORICAL TUBAL LIGATION COLONOSCOPY 2018 PROCEDURE: HISTORICAL COLONOSCOPY; COMMENT: normal UPPER GASTROINTESTINAL ENDOSCOPY 2018 PROCEDURE: KS UPPER GI ENDOSCOPY PERFORMED; COMMENT: normal OTHER SURGICAL HISTORY PROCEDURE: BREAST MASS CORE BIOPSY SPCMN PATHOLGY EXAM Medical History Medical History Date Comments Disorders of bursae and tend ons in shoulder region, unspecified 02/10/2007 DX:Disorders of bursae an d tendons in shoulder region, unspecified; COMMENT: not confirmed by ortho Eczema 08/15/2011 DX:Eczema Ankle fracture, left 05/2012 DX:Ankle fr acture, left History of COVID-19 06/15/2020 DX:History o f COVID-19; COMMENT: Again May Fibroadenoma of breast deter mined by biopsy 12/14/2017 DX:Fibroadenoma of breast de termined by biopsy Iron deficiency anemia 09/13/2018 DX:Iron d eficiency anemia Generalized anxiety disorder 04/29/2019 DX: Generalized anxiety disorder Moderate episode of recurren t major depressive disorder ([facility]/HCC) 04/29/2019 DX:Moderate episode of r ecurrent major depressive disorder ([facility]) Attention deficit hyperactiv ity disorder (ADHD), predominantly inattentive type 08/28/2020 DX:Attention deficit hyperac tivity disorder (ADHD), predominantly inattentive type Seropositive rheumatoid arth ritis (CMS/[facility]) 08/21/2012 DX:Seropositive rheumatoid a rthritis ([facility]); COMMENT: Onset- 2010. RF positive. CCP positive. Shoulders, hands. On methotrexate approx. 2011 to mid 2012 stopped meds in (2013) Tubal ligation 02/02: Hydroxychloroquine started - stopped Feb 2016 - recurrent URI 07/10: methotrexate restarted Chronic rhinitis 10/06/2011 DX:Chronic rhin itis Mild persistent asthma with acute exacerbation 09/03/2021 DX:Mild persistent asthma wi th acute exacerbation COPD (chronic obstructive pu lmonary disease) ([facility]/HCC) DX:COPD (chronic obstructive pulmonary disease) ([facility]) Herpes genitalis type 2 Family History Medical History Relation Name Comments Rheum arthritis Brother 1 No Known Problems Brother 2 COPD Father Diabetes Father Thyroid disease Father Diabetes Mother Other: Other Mother tumor behind ey e od Rheum arthritis Mother on Humira Thyroid disease Mother No Known Problems Sister 1 lots of pr oblems but doesnt talk Diabetes Sister 2 ADD / ADHD Son 1 ADD / ADHD Son 2 Breast cancer Neg Hx Colon cancer Neg Hx Glaucoma Neg Hx Macular degener ation, strabismus, blindness, cataract Relation Name Status Comments Brother 1 Alive Brother 2 Alive Brother 3 Alive Father Alive Mother Alive Sister 1 Alive Sister 2 Alive Son 1 Alive Son 2 Alive Social History Tobacco Use Types Packs/Day Years Used Date Smoking Tobacco: Never Smokeless Tobacco: Never Tobacco Cessation:Counseling Given: Not Answered Alcohol Use Standard Drinks/Week Comments Not Currently [...] care for your loved ones. For example, child development consultant or elderly care for an older adult? [...] file Not on file Not on file Obstetrics History Para Term AB IAB SAB Ectopic Multiple Livin g Live Births 5 2 0 0 2 2 0 0 0 2 2 Date Outcome GA Total Labor Labor/2nd/3rd Weight Sex Type Anes PTL Karina A1 A5 Name Clin Para IAB IAB 001 Para 36w 0d 5h 00m/ 2807 g (99 oz) M Vag-S pont None Livin g Zeny un Goldsb erry Delivery Location:[facility] Comments:gdm 2014 38w 0d M Vag-S pont Livin g Comments:System Genera zaire. Please review and update details. Last Filed Vital Signs Vital Sign Reading Time Taken Comments Blood Pressure 117/77 05/29/2024 1:16 PM EST Pulse 74 05/29/2024 1:16 PM EST Temperature 35.7 ??C (96.3 ??F) 05/14/2024 9:38 AM ES T Respiratory Rate 18 05/29/2024 1:16 PM EST Oxygen Saturation 100% 05/14/2024 9:38 AM EST Inhaled Oxygen Concentration - - Weight 90.6 kg (199 lb 12.8 oz) 05/29/2024 1:16 PM EST Height 170.2 cm (5' 7 ) 05/29/2024 1:16 PM EST Body Mass Index 31.29 05/29/2024 1:16 PM EST Plan of Treatment Upcoming Encounters Date Type Department Care Team (Late st Contact Info) Description 07/29/2024 3:00 PM EDT Office Visit Pulmonolgy - [facility] [address] [place] [phone] Ladonna Virk NP [address] [place] [address] Health Maintenance Due Date Last Done Comments Pneumococcal Vaccine: Pediatrics (0 to 5 Years) and At-Risk Patients (6 to 64 Years) (1 of 2 - PCV) 1988 Hepatitis B Vaccines (1 of 3 - 19+ 3-dose series) 2001 HPV Vaccines (3 - Risk 3-dose series) 11/24/2008 07/25/2008, 2008 Breast Cancer Screening 12/14/2019 12/13/2017, 12/12 COVID-19 Vaccine ( season) 2024 12/28/2021, 09/07/2020, 08/12/2020 Influenza Vaccine (#1) 2024 , 04/06/2015, 03/12/2014, Additional history exists Social Influencers of Health Screening 05/06/2025 05/06/2024, 09/14/2023 Depression Screening 05/28/2025 05/28/2024, 09/14/2023, 09/14/2023 Cervical Cancer Screening: HPV 08/17/2025 08/17/2020 Cholesterol Screening (Lipid Panel) 09/13/2028 09/14/2023, 09/14/2023 DTaP,Tdap,and Td Vaccines (4 - Td or Tdap) 04/29/2029 04/29/2019, 11/11/2013, 03/26/2008 HIV Screening Completed 04/21/2021 Hepatitis C Screening Completed 04/21/2021 HIB Vaccines Aged Out No longer eligi ble based on patient's age to complete this topic Hepatitis A Vaccines Aged Out No long er eligible based on patient's age to complete this topic IPV Vaccines Aged Out No longer eligi ble based on patient's age to complete this topic MMR Vaccines Aged Out No longer eligi ble based on patient's age to complete this topic Meningococcal ACWY Vaccine Aged Out N o longer eligible based on patient's age to complete this topic RSV Immunization Patients Under 20 months Aged Out No longer eligible based on patient's age to complete this topic Varicella Vaccines Aged Out No longer eligible based on patient's age to complete this topic Procedures Procedure Name Priority Date/Time Associated Diagnosis Comments POC , URINE DIAGNOSTIC Routine 05/29/2024 2:15 PM EST test negative Encounter for IUD insertion KS INSERTION INTRAUTERINE DEVICE Routine 05/29/2024 1:33 PM EST Encounter for IUD insertion TISSUE EXAM Routine 05/07/2024 11:32 AM EST Menorrhagia with regular cycle Thickened endometrium POC , URINE DIAGNOSTIC Routine 05/07/2024 11:25 AM EST test negative KS ENDOMETRIAL SAMPLING W/WO ENDOCERVICAL SAMPLING W/O CERVICAL DILATION Routine 05/07/2024 11:12 AM EST Menorrhagia with regular cycle Thickened endometrium US PELVIS NON OB COMPLETE W TRANSVAGINAL Routine 04/25/2024 5:06 PM EST Pelvic pain CULTURE HERPES SIMPLEX VIRUS Routine 04/24/2024 2:42 PM EST Labial lesion POC URINE AUTO W/O MICRO Routine 04/23/2024 4:08 PM EST Pelvic pain CULTURE URINE Routine 04/23/2024 4:04 PM EST Pelvic pain TRICHOMONAS VAGINALIS ANTIGEN Routine 04/23/2024 3:57 PM EST Vaginal irritation WET PREP, GENITAL Routine 04/23/2024 3:5 7 PM EST Vaginal irritation CHLAMYDIA TRACHOMATIS AND NEISSERIA GONORRHOEAE PCR Routine 04/23/2024 3:57 PM EST Vaginal irritation HM DEPRESSION SCREENING Routine 09/14/2023 LIPID PANEL Routine 09/14/2023 HM HEPATITIS C SCREENING Routine 04/21/2021 HM HIV SCREENING Routine 04/21/2021 HM HPV Routine 08/17/2020 DX MAMMO INCL CAD UNI Routine 12/13/2017 1:39 PM EDT Unspecified lump in unspecified breast from Last 3 Months or Most Recently Relevant to Health Maintenance Results * POC , urine manually resulted (05/29/2024 2:15 PM EST) Only the most recent of2 resultswithin the time period is included. HCG, Ur POC Negative Negative POC hCG Int QC Pass? Yes Yes Urine Urine specimen obtained by clean catch procedure / Unknown 05/29/2024 2:15 PM EST Minnie Tejada DO POINT OF CARE TEST E NTER/EDIT ORDERABLES * KS INSERTION INTRAUTERINE DEVICE (05/29/2024 1:33 PM EST) Narrative Minnie Tejada DO - 05/29/2024 1:33 PM EST Minnie Tejada DO ? 05/29/2024 ??2:16 PM IUD Insertion ?? Date/Time: 05/29/2024 1:33 PM Performed by: Minnie Tejada DO Authorized by: Minnie Tejada DO ?? Informed Consent: ??Relevant images/test results available and reviewed: yes ?Health status cleared: ??Yes ??Procedure/treatment, purpose, treatment alternatives, risks/potential complications and benefits explained: yes ?Patient questions answered: yes ?Patient agrees, verbalizes understanding, and wants to proceed: yes ?Consent given by: ??Patient ??Informed consent discussion completed by Physician/MONO with patient: ?? Written; patient signed and dated; copy to patient ??Pre-procedure timeout performed: no ?? Pre Procedure: ??Negative urine test: ??Yes ??Negative serum test: ??Not indicated ??Gonorrhea/chlamydia test: ??Not indicated ??Uterine position: ??Anverted Insertion Procedure: ??Speculum placed in vagina and cervix prepped with: ??Betadine ??Cervix stablized: ??With allis ??Cervical dilation: no ?Uterus sounded: yes ?Uterus sound depth (cm): ??8.5 ??IUD type: Mirena ?IUD insertion successful: yes ?Medication Administration: ??52 mg levonorgestreL 21 mcg/24hr (up to 8 yrs) 52 mg ??Complications: no ?Strings trimmed: yes ?? Post-procedure: ??Ultrasound confirmed placement: no ?Patient tolerated procedure well: yes ?Post procedure instructions given: yes ?Patient will follow up for string check: yes ?? Minnie Tejada DO IN CLINIC/BEDSIDE OR DERABLES * Tissue Exam (05/07/2024 11:32 AM EST) Final Diagnosis Endometrium, biopsy: Proliferative endometrium with stromal breakdown. No hyperplasia, atypia, or neoplasia identified. 05/09/2024 3:58 PM EST [facility] Gross Description A. Endometrium, biopsy: Labeled endo, EMB . Received in formalin is an approximately 2.0 x 1.0 x 0.3 cm aggregate of soft, naylor-brown tissue fragments, which is wrapped in paper and submitted in toto in one cassette, multiple pieces, x2. Please note: Small tissue fragments may not survive processing. dvb/AL 05/09/2024 3:58 PM EST [facility] Disclaimer Unless otherwise specified, all tissue is 10% NB formalin fixed and paraffin embedded. 05/09/2024 3:58 PM EST [facility] Tissue Endometrial structure / Unknown Non-blood Collection / Unknown 05/07/2024 11:32 AM EST 05/07/2024 11:32 AM EST Minnie Tejada DO LAB PATHOLOGY [facility] [address] [place] [address], * KS ENDOMETRIAL SAMPLING W/WO ENDOCERVICAL SAMPLING W/O CERVICAL DILATION (05/07/2024 11:12 AM EST) Narrative Minnie Tejada DO - 05/07/2024 11:12 AM EST Minnie Tejada DO ? 05/07/2024 11:30 AM Endometrial biopsy Indication: ??Indications comment: ??Heavy menses, thickened endometrium Date/Time: 05/07/2024 11:12 AM Performed by: Minnie Tejada DO Authorized by: Minnie Tejada DO ?? Informed Consent: ??Relevant images/test results available and reviewed: yes ?Health status cleared: ??Yes ??Procedure/treatment, purpose, treatment alternatives, risks/potential complications and benefits explained: yes ?Patient questions answered: yes ?Patient agrees, verbalizes understanding, and wants to proceed: yes ?Consent given by: ??Patient ??Informed consent discussion completed by Physician/MONO with patient: ?? Written; patient signed and dated; copy to patient Pre-procedure: ??Negative urine test: ??Yes ??Uterus size: ??9-10 weeks ??Uterus position: ??Anteverted Procedure: ??A speculum was placed into the vagina and the cervix was prepped with: ?? Betadine ??Cervix stablized: ??With allis ??Cervix dilation: no ?Uterus sounded: no ?Cervix: normal ?Number of passes to obtain adequate specimen: ??1 ??Hemostasis achieved with: ??Applied pressure ??Patient tolerated procedure well with no complications: yes ?? Minnie Tejada DO IN CLINIC/BEDSIDE OR DERABLES * US Pelvis Non OB Complete w Transvaginal (04/25/2024 5:06 PM EST) Anatomical Region Laterality Modality Body, Pelvis Ultrasound 04/25/2024 10:3 1 PM EST Impressions 04/25/2024 10:40 PM EST Heterogeneous borderline thickened endometrial complex. ??Further workup suggested. POS [id number] -------- FINAL REPORT -------- Dictated By: Erica Patrick Dictated Date: 04/25/2024 22:31 ET Assigned Physician: Erica Patrick Reviewed and Electronically Signed By: Erica Patrick Signed Date: 04/25/2024 22:40 ET Workstation ID: [id number] Transcribed By: Self Edit Transcribed Date: 04/25/2024 22:31 ET Narrative 04/25/2024 10:40 PM EST PELVIC ULTRASOUND HISTORY: Pelvic pain. COMPARISON: ??12/06/2022 FINDINGS: Both transabdominal and endovaginal pelvic ultrasound were performed. ?? Uterus: 9.7 x 5.7 x 5.1 cm in size. ??No solid lesion identified. Endometrium: Borderline thickened measuring 1.5 cm in thickness. ??Heterogeneous appearance of the endometrium. Right ovary: Normal in size measuring 3.0 x 2.4 x 1.6 cm without abnormality. Left ovary: Only visualized transabdominally. ??Normal in size measuring 3.3 x 3.1 x 2.8 cm. ??It contains a 2.9 x 2.7 x 2.7 cm cyst which likely represents a dominant follicle. ?? Cul-de-sac: No free fluid. Procedure Note Erica Patrick MD - 04/25/2024 PELVIC ULTRASOUND HISTORY: Pelvic pain. COMPARISON: 12/06/2022 FINDINGS: Both transabdominal and endovaginal pelvic ultrasound were performed. Uterus: 9.7 x 5.7 x 5.1 cm in size. No solid lesion identified. Endometrium: Borderline thickened measuring 1.5 cm in thickness.Heterogeneous appearance of the endometrium. Right ovary: Normal in size measuring 3.0 x 2.4 x 1.6 cm withoutabnormality. Left ovary: Only visualized transabdominally. Normal in size measuring3.3 x 3.1 x 2.8 cm. It contains a 2.9 x 2.7 x 2.7 cm cyst which likelyrepresents a dominant follicle. Cul-de-sac: No free fluid. IMPRESSION: Heterogeneous borderline thickened endometrial complex. Further workupsuggested. POS [id number] -------- FINAL REPORT -------- Dictated By: Erica Patrick Dictated Date: 04/25/2024 22:31 ET Assigned Physician: Erica Patrick Reviewed and Electronically Signed By: Erica Patrick Signed Date: 04/25/2024 22:40 ET Workstation ID: [id number] Transcribed By: Self Edit Transcribed Date: 04/25/2024 22:31 ET Delmis Allan Rogers [facility] IMG US PROCEDUR ES * (ABNORMAL) Culture Herpes simplex virus (04/24/2024 2:42 PM EST) Specimen Source Urogenital - Vagina 04/29/2024 3:04 PM EST [facility] HSVC Interpretation Herpes Simplex Virus Type 2 ISOLATED(A) No Growth 04/29/2024 3:04 PM EST [facility] Comment: This method utilizes standard tube culture methods with monoclonal antibody staining of CPE-positive cells. This procedure can detect and differentiate herpes type 1 and herpes type 2. Other viruses present in the specimen will not be identified. A negative result does not preclude viral infection. The viability of viral agents can be degraded if specimens are improperly collected or stored. The number of viable virus particles may be below the detection threshold. Test performed at [facility], [address] [place], [place] ??[address] ? [phone] Gris Sadler MD, PhD - Frit [employer]ater Swab Vaginal structure / Unknown Non-blood Collection / Unknown 04/24/2024 2:42 PM EST 04/24/2024 2:42 PM EST [facility] MICROBIOLOGY - G ENERAL ORDERABLES [facility] [address] [place] [address] * (ABNORMAL) POC Urine Auto W/O Micro (04/23/2024 4:08 PM EST) Glucose UA POC Negative Negative, Trace mg/dL Bilirubin UA POC Negative Negative, Small Ketones UA POC Negative Negative, Trace Specific Calvin UA POC <=1.005 Blood UA POC Trace(A) Negative, Large PH UA POC 8.5 Protein UA POC Trace(A) Negative, >=300 mg/dL Urobilinogen UA POC 0.2 E.U./dL mg/dL Nitrite UA POC Negative Negative Leukocytes UA POC Negative Negative Urine Urine specimen obtained by clean catch procedure / Unknown 04/23/2024 4:08 PM EST Delmis GRIFFIN POINT OF CARE T EST ENTER/EDIT ORDERABLES * Culture urine (04/23/2024 4:04 PM EST) Pathologist [facility] Culture, Urine No growth 04/24/2024 1:42 PM EST [facility] Urine Urine specimen obtained by clean catch procedure / Unknown Non-blood Collection / Unknown 04/23/2024 4:04 PM EST 04/23/2024 4:04 PM EST Delmis Rogers CNM LAB MICROBIOLOG Y - GENERAL ORDERABLES [facility] [address] [place] [address], * Trichomonas vaginalis antigen (04/23/2024 3:57 PM EST) Pathologist [facility] Trichomonas vaginalis Negative Negative 04/23/2024 8:46 PM EST [facility] Swab Vaginal structure / Unknown Non-blood Collection / Unknown 04/23/2024 3:57 PM EST 04/23/2024 3:57 PM EST Delmis Rogers CNM LAB MICROBIOLOG Y - GENERAL ORDERABLES Performing Organization Address City/[facility]/ZIP Co de Phone Number [facility] [address] [place] [address], * Chlamydia trachomatis and Neisseria gonorrhoeae molecular study (04/23/2024 3:57 PM EST) Neisseria gonorrhoeae PCR Negative Negative LAB MOLECULAR DIAGNOSTICS METHOD 04/24/2024 9:58 AM EST [facility] Chlamydia trachomatis PCR Negative Negative LAB MOLECULAR DIAGNOSTICS METHOD 04/24/2024 9:58 AM EST [facility] Swab Endocervical structure / Unknown Non-blood Collection / Unknown 04/23/2024 3:57 PM EST 04/23/2024 3:57 PM EST Delmis GRIFFIN LAB MICROBIOLOG Y - GENERAL ORDERABLES Performing Organization Address City/[facility]/ZIP Co de Phone Number [facility] [address] [place] [address], * Wet prep, genital (04/23/2024 3:57 PM EST) Clue Cells, Wet Prep Negative Negative 04/23/2024 8:45 PM EST [facility] Yeast, Wet Prep Negative Negative 04/23/2024 8:45 PM EST [facility] Trichomonas, Wet Prep Indeterminate Negative 04/23/2024 8:45 PM EST [facility] Comment:Refer to Trichomonas antigen. Swab Vaginal structure / Unknown Non-blood Collection / Unknown 04/23/2024 3:57 PM EST 04/23/2024 3:57 PM EST Delmis Rogers CNM LAB MICROBIOLOG Y - GENERAL ORDERABLES [facility] [address] [place] [address], * Depression Screening (09/14/2023) Pathologist [facility] Depression Screening Abstracted Historical [facility] * Lipid panel (09/14/2023) [facility] LDL/HDL Ratio 2 0 - 4 Triglycerides 51 0 - 150 mg/dL Cholesterol 148 0 - 200 mg/dL HDL 68 40 mg/dL LDL Cholesterol 70 0 - 100 mg/dL Blood Venous blood specimen / Unknown Historical Provider LAB BLOOD ORDERAB LES * HIV Screening (04/21/2021) [facility] HIV Screening Abstracted Historical Provider [facility] * Hepatitis C Screening (04/21/2021) [facility] Hepatitis C Screening Abstracted Historical Provider [facility] * Cervical Cancer Screening: HPV (08/17/2020) [facility] Cervical Cancer Screening: HPV Negative, Abstracted Historical Provider [facility] * DX MAMMO INCL CAD UNI (12/13/2017 1:39 PM EDT) Anatomical Region Laterality Modality Mammography 12/12/2017 4:15 PM EDT Narrative 12/21/2017 2:05 PM EDT Please see combined report, same date. Procedure Note Anel Chávez MD - 05/10/2022 Please see combined report, same date. Vannessa Schmidt CNM IMG BI PROCEDURES from Last 3 Months or Most Recently Relevant to Health Maintenance Additional Health Concerns Infection Onset Date Last Indicated Herpes simplex 04/24/2024 04/24/2024 Care Teams Harbor Boat Pilot Relationship Specialty Start Date End Date Trino Peterson MD [address] [place] [id number] PCP - General Internal Medicine 04/23/24
--- OUTSIDE RECORDS SUMMARY | 2024-06-22 09:29 | XMS_ITS | Encounter Summary ---
Author Organization [facility] [place] [address] Care Team Providers Care Veneer Supervisor Name Role Phone Trino Peterson MD Primary Care Provider [phone] Encounter Details Date Type Department Care Team (Late st Contact Info) Description 05/30/2024 Telephone [facility] [place] [address] [place] [phone] Helena Lawrence MA Social History Tobacco Use Types Packs/Day Years [...] care for your loved ones. For example, children's zoo caretaker or elderly care for an older adult? [...] as of this encounter Progress Notes * Helena Pimentel MA - 05/30/2024 2:21 PM EST Contact [facility] to set up a shipment But they will need patient concent. Left vm to patient to contact [facility] at [phone] to set up the shipment at [place] [address] [facility] [id number] Tax id: [id number] documented in this encounter Plan of Treatment Upcoming Encounters Date Type Department Care Team (Late st Contact Info) Description 07/29/2024 3:00 PM EDT Office Visit Pulmonolgy - [place] [address] [place] [phone] Ladonna Virk NP [address] [place] [address] documented as of this encounter Visit Diagnoses Not on filedocumented in this encounter Additional Health Concerns Infection Onset Date Last Indicated Resolved Time Herpes simplex 04/24/2024 04/24/2024 Assessment Noted Time PHQ-9 Depression Total Score: 0 05/28/19 25 1:52 PM EST documented as of this encounter Care Teams Veneer Supervisor Relationship Specialty Start Date End Date Trino Peterson MD [address] [place] [id number] PCP - General Internal Medicine 04/23/24 documented as of this encounter
--- OUTSIDE RECORDS SUMMARY | 2024-06-22 09:29 | XMS_ITS | Encounter Summary ---
[facility] [place] [address] Care Team Providers Care Staff Radiation Therapist Name Role Phone Trino Peterson MD Primary Care Provider [phone] Reason for Visit * Reason Onset Date Comments irregular bleeding 05/23/2024 Encounter Details Date Type Department Care Team (Late st Contact Info) Description 05/23/2024 Telephone [facility] [place] [address] [place] [address] Minnie Tejada, [address] [place] [address] irregular bleeding Social History Tobacco Use Types Packs/Day Years [...] for your loved ones. For example, children's program coordinator or elderly care for an older adult? [...] as of this encounter Progress Notes * Aleida Cuba, ADOLFO - 05/23/2024 12:26 PM EST Pt is calling to report that since yesterday she started changing the pad every 2 hours, feeling dizzy and nauseous, States the medication given in ER on 05/16/24 helped for little, but now bleeding is the same as before. No appointment available sooner than 05/29/24, advised pt to go to ER, pt states she did not feel comfortable there, as they told her they cannot help her and she needs to see Gynprovider, states I wont go unless I'm passing out , advised pt not to wait as she is bleeding heavy and is symptomatic, pt verbalizes understanding and has no additional questions * Franca Jody - 05/23/2024 9:08 AM EST Chief Complaint/problem: please refer to encounter from 05/16. Pt has been taking provera as given by ER but is still bleeding heavy and changing pad every 2 hrs. States this is affecting her life and does not feel well. Please advise How long has the patient had this problem? Pt???s ENCYCLOPEDIA RESEARCH WORKER provider: Minnie Tejada DO Last menstrual period (LMP) or EDC (due date): . documented in this encounter Plan of Treatment Upcoming Encounters Date Type Department Care Team (Late st Contact Info) Description 07/29/2024 3:00 PM EDT Office Visit Pulmonol - [place] [address] [place] [phone] Ladonna Virk NP [address] [place] [address] documented as of this encounter Visit Diagnoses Not on filedocumented in this encounter Additional Health Concerns Infection Onset Date Last Indicated Resolved Time Herpes simplex 04/24/2024 04/24/2024 Assessment Noted Time PHQ-9 Depression Total Score: 8 05/06/20 24 2:43 PM EST documented as of this encounter Care Teams Staff Radiation Therapist Relationship Specialty Start Date End Date Trino Peterson MD [address] [place] [id number] PCP - General Internal Medicine 04/23/24 documented as of this encounter
--- OUTSIDE RECORDS SUMMARY | 2024-06-22 09:29 | XMS_ITS | Encounter Summary ---
Author Organization [facility] [place] [address] Care Team Providers Care Vmware Architect Name Role Phone Trino Peterson MD Primary Care Provider [phone] Reason for Visit * Reason Onset Date Comments Medication Problem 04/26/2024 Fasenra Med Change Request 04/26/2024 Dupixent Encounter Details Date Type Department Care Team (Late st Contact Info) Description 04/26/2024 Telephone [facility] [address] [place] [phone] Helena Lawrence MA Medication Problem (Fasenra); Med Change Request (Dupixent) Social History Tobacco Use Types Packs/Day Years [...] care for your loved ones. For example, assistant child care teacher or elderly care for an older [...] on file documented as of this encounter Ordered Prescriptions Prescription Sig Dispensed Refills Start Date End Da te dupilumab (DUPIXENT) 300 mg/2 mL penIndications:Severe persistent asthma with (acute) exacerbation (CMS/HCC),Chronic obstructive pulmonary disease, unspecified COPD type (CMS/HCC) Inject 2 mL (300 mg total) under the skin every 14 (fourteen) days. 4 mL 11 04/30/2024 dupilumab (DUPIXENT) 300 mg/2 mL penIndications:Severe persistent asthma with (acute) exacerbation (CMS/HCC),Chronic obstructive pulmonary disease, unspecified COPD type (CMS/HCC) Inject 4 mL (600 mg total) under the skin 1 (one) time for 1 dose. 4 mL 04/30/2024 04/30/2024 documented in this encounter Progress Notes * Helena Pimentel MA - 2024 9:39 AM EST Patient informed of medication Dupixent approval that patient needs to contact [facility] my way at [phone]. Medication will be faxed to [facility] at [phone] * Helena Pimentel MA - 04/30/2024 2:15 PM EST Approved Start Date:04/26/2024 End Date: 04/26/2025 Authorization Expiration Date: 04/25/2025. Please print medication so we can send it to [facility] then will contact patient to informed that medication was approved [facility] No Results [id number] [facility], [id number] * Helena Pimentel MA - 04/29/2024 2:29 PM EST [facility] * Ladonna Virk NP - 04/26/2024 3:53 PM EST Please start paperwork for Dupixent and see if patient would like to come and sign before our next appointment. Thanks * Helena Pimentel MA - 04/26/2024 11:47 AM EST Called [facility] to find out any updates on this prior authorization for Murali, we were working on this since 2023. [facility] suggested to contact patient insurance [facility] to find out what they can help me to approve this medication once I gave them patient information they couldn't find patient into their system. Can we start Dupixent since we been waiting since February 13 documented in this encounter Plan of Treatment Upcoming Encounters Date Type Department Care Team (Late st Contact Info) Description 07/29/2024 3:00 PM EDT Office Visit Pulmonolgy - [place] [address] [place] [address] Laodnna Virk NP [address] [place] [address] documented as of this encounter Visit Diagnoses Diagnosis Severe persistent asthma with (acute) exacerbation (CMS/HCC)- Primary Chronic obstructive pulmonary disease, unspecified COPD type (CMS/HCC) documented in this encounter Additional Health Concerns Infection Onset Date Last Indicated Resolved Time Herpes simplex 04/24/2024 04/24/2024 documented as of this encounter Care Teams Vmware Architect Relationship Specialty Start Date End Date Trino Peterson MD [address] [place] [address] PCP - General Internal Medicine 04/23/24 documented as of this encounter
--- OUTSIDE RECORDS SUMMARY | 2024-06-22 09:29 | XMS_ITS | Encounter Summary ---
Author Organization [facility] [place] [address] Care Team Providers Care Bottom Stop Attacher Name Role Phone Trino Peterson MD Primary Care Provider Reason for Visit * Reason Comments Contractions IUD Encounter Details Date Type Department Care Team (Late st Contact Info) Description 05/29/2024 1:00 PM EST Procedure visit [facility] [place] [address] [place] [address] Minnie Tejada DO [address] [place] [address] Encounter for IUD insertion (Primary Dx); test negative Social History Tobacco Use Types Packs/Day Years [...] care for your loved ones. For example, infant childcare provider or elderly care for an older adult? [...] on file documented as of this encounter Last Filed Vital Signs Vital Sign Reading Time Taken Comments Blood Pressure 117/77 05/29/2024 1:16 PM EST Pulse 74 05/29/2024 1:16 PM EST Temperature - - Respiratory Rate 18 05/29/2024 1:16 PM EST Oxygen Saturation - - Inhaled Oxygen Concentration - - Weight 90.6 kg (199 lb 12.8 oz) 05/29/2024 1:16 PM EST Height 170.2 cm (5' 7 ) 05/29/2024 1:16 PM EST Body Mass Index 31.29 05/29/2024 1:16 PM EST documented in this encounter Progress Notes * Minnie Tejada DO - 05/29/2024 1:00 PM ESTAssociated Order(s): IUD Post-Procedure Diagnose(s): test negative IUD Insertion Date/Time: 05/29/2024 1:33 PM Performed by: Minnie Tejada DO Authorized by: Minnie Tejada DO Informed Consent: Relevant images/test results available and reviewed: yes Health status cleared: Yes Procedure/treatment, purpose, treatment alternatives, risks/potential complications and benefits explained: yes Patient questions answered: yes Patient agrees, verbalizes understanding, and wants to proceed: yes Consent given by: Patient Informed consent discussion completed by Physician/MONO with patient: Written; patient signed and dated; copy to patient Pre-procedure timeout performed: no Pre Procedure: Negative urine test: Yes Negative serum test: Not indicated Gonorrhea/chlamydia test: Not indicated Uterine position: Anverted Insertion Procedure: Speculum placed in vagina and cervix prepped with: Betadine Cervix stablized: With allis Cervical dilation: no Uterus sounded: yes Uterus sound depth (cm): 8.5 IUD type: Mirena IUD insertion successful: yes Medication Administration: 52 mg levonorgestreL 21 mcg/24hr (up to 8 yrs) 52 mg Complications: no Strings trimmed: yes Post-procedure: Ultrasound confirmed placement: no Patient tolerated procedure well: yes Post procedure instructions given: yes Patient will follow up for string check: yes documented in this encounter Plan of Treatment Upcoming Encounters Date Type Department Care Team (Late st Contact Info) Description 07/29/2024 3:00 PM EDT Office Visit Pulmonol - [place] [address] [place] [address] Ladonna Virk NP [address] [place] [address] documented as of this encounter Procedures Procedure Name Priority Date/Time Associated Diagnosis Comments POC , URINE DIAGNOSTIC Routine 05/29/2024 2:15 PM EST test negative Encounter for IUD insertion SD INSERTION INTRAUTERINE DEVICE Routine 05/29/2024 1:33 PM EST Encounter for IUD insertion documented in this encounter Results * POC , urine manually resulted (05/29/2024 2:15 PM EST) HCG, Ur POC Negative Negative POC hCG Int QC Pass? Yes Yes Urine Urine specimen obtained by clean catch procedure / Unknown 05/29/2024 2:15 PM EST Minnie Tejada DO POINT OF CARE TEST E NTER/EDIT ORDERABLES * SD INSERTION INTRAUTERINE DEVICE (05/29/2024 1:33 PM EST) [...] Minnie Tejada DO IN CLINIC/BEDSIDE OR DERABLES documented in this encounter Visit Diagnoses Diagnosis Encounter for IUD insertion- Primary Insertion of intrauterine contraceptive device test negative documented in this encounter Administered Medications Inactive Administered Medications - up to 3 most recent administrations Medication Order MAR Action Action Date Dose Rate Site levonorgestreL (MIRENA) 21 mcg/24hr (up to 8 yrs) 52 mg IUD 52 mg 52 mg, intrauterine, Once PRN Procedure, Starting on Mon05/29/24 at 1333, For 1 dose Given 05/29/2024 1:33 PM EST 52 mg documented in this encounter Discontinued Medications Medication Sig Discontinue Reason Start Date End Da te benralizumab (Fasenra) 30 mg/mL syringe Inject 1 mL into the skin every 28 days. Please Inject subcutaneously 1 ml(30 mg) every 4 weeks for 3 months then 1 ml(30 mg) every 8 weeks Alternate therapy 03/14/2024 05/29/2024 documented as of this encounter Historical Medications * This list may reflect changes made after this encounter. Medication Sig Dispensed Refills Start Date End Date levonorgestreL (MIRENA) 21 mcg/24hr (up to 8 yrs) 52 mg IUDIndications:Encounte r for IUD insertion 1 Device (1 each total) by intrauterine route 1 (one) time. 05/29/2024 added in this encounter Additional Health Concerns Infection Onset Date Last Indicated Resolved Time Herpes simplex 04/24/2024 04/24/2024 Assessment Noted Time PHQ-9 Depression Total Score: 0 05/28/19 25 1:52 PM EST documented as of this encounter Care Teams Bottom Stop Attacher Relationship Specialty Start Date End Date Trino Peetrson MD [address] [place] [id number] PCP - General Internal Medicine 04/23/24 documented as of this encounter
[2024-06-22 09:40] LABS: MANUAL DIFF FLAG NO
[2024-06-22 10:34] LABS: Basophils Absolute Auto 0.1 X10*3/uL (0.0-0.2); Basophils Percent Auto 0.6 % (0-2); Eosinophils Absolute Auto 0.4 X10*3/uL (0.0-0.4); Hematocrit 28.4 % (37.0-47.0); Imm Gran Abs Auto 0.02 X10*3/uL (0.00-0.03); Imm Gran Pct Auto 0.2 % (0.0-0.4); Lymphocytes Absolute Auto 3.4 X10*3/uL (1.2-4.9); Lymphocytes Percent Auto 36.1 % (20-40); Mean Corpuscular HGB Conc 31.7 g/dl (31.0-35.0); Mean Corpuscular Hemoglobin 26.8 pg (27.0-33.0); Mean Corpuscular Volume 84.5 fL (80.0-98.0); Mean Platelet Volume 10.1 fL (9.4-12.3); Monocytes Absolute Auto 0.8 X10*3/uL (0.1-1.2); Monocytes Percent Auto 8.5 % (2-11); Neutrophils Absolute Auto 4.7 x10*3/uL (2.0-8.3); Neutrophils Percent Auto 50.6 % (45-73); Platelet Count 615 X10*3/uL (160-400); Red Blood Count 3.36 X10*6/uL (4.20-5.50); Red Cell Distribution Width 13.8 % (11.0-16.0); White Blood Count 9.3 X10*3/uL (4.8-10.8)
[2024-06-22 11:04] LABS: Alanine Aminotransferase 10 U/L (0-31); Albumin Level 3.9 g/dL (3.5-5.0); Alkaline Phosphatase 57 U/L (39-117); Anion Gap 9 (12-20); Aspartate Amino Transferase 22 U/L (5-31); Bilirubin Total 0.3 mg/dL (0.0-1.0); Blood Urea Nitrogen 8 mg/dL (9-16); C Reactive Protein 0.47 mg/dL (< or = 0.50); Calcium 8.4 mg/dL (8.4-10.2); Carbon Dioxide 23 mmol/L (22-29); Chloride 112 mmol/L (96-108); Estimated Glomerular Filt Rate > 60; Glucose Random 87 mg/dL (60-115); Potassium 3.8 mmol/L (3.3-5.1); Sodium 140 mmol/L (135-145); Total Protein 7.6 g/dL (6.5-8.0)
[2024-06-22 11:09] LABS: Erythrocyte Sedimentation Rate 81 MM/HR (0-20)
== END 2024-06-22 09:27 | disposition home or self-care (01) ==
LOC: HO.LAB 09:26
PROVIDERS: PCP Internal Medicine; Visit Provider Student in an Organized Health Care Education/Training Program
DX: M05.79 Rheumatoid arthritis with rheumatoid factor of multiple sites without organ or systems involvement (principal); Z79.899 Other long term (current) drug therapy
CPT/HCPCS: 36415; 80053; 85025; 85652; 86140

== ENCOUNTER 2024-06-26 15:53 | Outpatient (AMB) | payer OTHER, SELFPAY ==
[2024-06-26 15:56] VITALS: BP 167/91; PULSE 78; BMI 31.8
--- NOTE | 2024-06-26 15:56 | A.OFFVIS_ITS ---
Vital Signs 06/26/24 15:56 Height 5 ft 7 in Weight 202 lb 13.204 oz BMI 31.8 BP 167/91 H Blood Pressure Location Rt brachial Position Sitting Pulse 78 Pulse Source Pulse Oximeter Intake Visit Reasons: RA/Flare up per MD bennett 20 minutes Intake Note: Patient present here today to establish treatment for RA: Patient having pain in both hands. Bioinformatics Computer Scientist Required: No Accompanied by: Self / Same As Patient Allergies indomethacin [From Indocin] Adverse Reaction (Unknown, Verified 06/26/24 15:58) Hives Medication List - Last Reconciled 06/26/24 by Meenakshi Souza MD albuterol sulfate 90 mcg/actuation 1 puff inhalation Q6H PRN betamethasone dipropionate 0.05% appl topical fluticasone propion-salmeterol 230-21 mcg/actuation (Advair HFA) 2 puffs inhalation BID fluticasone propionate 50 mcg/actuation 2 sprays intranasal DAILY loratadine 10 mg PO DAILY montelukast 10 mg PO BEDTIME tiotropium bromide 1.25 mcg/actuation (Spiriva Respimat) 2 puffs inhalation DAILY upadacitinib ER (Rinvoq) 15 mg PO DAILY HPI Comments Details: Patient is a 44-year-old female with seropositive rheumatoid arthritis here today for an urgent visit for rheumatoid arthritis flare Interval History: Patient last seen 06/03/[address] No. At that visit she reported that she was doing well in March when she started taking her Rinvoq regularly however in April she had couple of bouts of URIs and was not taking her Rinvoq. And so at that time she was complaining of worsening RA flare. Since then, Has been having a flare since that visit Has not started the Rinvoq due to insurance issues Rheumatologic History: Onset~ 2010 +++positive+++CCP positive MTX 2011 to mid 2012 stopped meds in (2013) Tubal ligation 02/02: Hydroxychloroquine started - stopped Feb 2016 - recurrent URI 07/10: methotrexate restarted - missed doses in mid 2021 -2022 due to covid, no prescriber. MTX self DC 10/2023 as she started Rinvoq Rinvoq started 10/2023 effective Current Rheumatology Medication(s): Rinvoq 15mg po daily PFSH Medical History Hypovitaminosis D History of COVID-19 Seropositive rheumatoid arthritis Iron deficiency anemia Generalized anxiety disorder ADHD (attention deficit hyperactivity disorder), inattentive type Surgical History Hx of tubal ligation Family History Mother Rheumatoid arthritis Diabetes History of thyroid disorder Father History of thyroid disorder Brother Rheumatoid arthritis Social History Alcohol intake: current Alcohol intake frequency: holidays/special occasions only Alcohol type: wine Patient Tobacco Use Status: Never used Tobacco Current occupational status: employed 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 Review of Systems Const Details: Review of Systems Constitutional: Denies fever, chills, weight loss ENT: Denies vision changes, eye pain or eye redness, dental caries, dry mouth GI: Denies nausea, vomiting, diarrhea, abdominal pain, change in BM Pulm: Denies SOB, PALOMO, hemoptysis, wheezing Cards: Denies chest pain, palpitations Skin: Denies Raynaud's, rash, nail changes, photosensitivity, BUSINESS LAW TEACHER: Denies headaches, weakness, paresthesias, recurrent falls MSK: as per HPI All other systems reviewed and are unremarkable except noted above Physical Exam Vital Signs: Last Vital Signs Pulse 78 06/26/24 15:56 BP 167/91 H 06/26/24 15:56 BMI result Body Mass Index 31.8 Vital signs reviewed Physical Examination CONSTITUITIONAL Patient alert and cooperative. Well appearing and in no apparent painful di stress HEENT Conjunctiva and sclera clear. ?Pupils equal round and reactive to light. ?No lymphadenopathy. ? CHEST/RESPIRATORY SYSTEM Normal respiratory effort and able to speak in complete sentences. ?Clear to auscultation bilaterally. ?No crackles, rales, rhonchi, wheezes heard. CARDIAC SYSTEM Regular rate and rhythm. ?S1 and S2 heard no murmurs. ?Radial pulses intact bilaterally MSK Hands: ?Poor rig builder strength bilaterally. No deformities noted but synovitis noted to the MCPs and PIPs bilaterally Wrists: ?Full range of motion at the wrists. With tenderness to palpation and synovitis noted to the wrists bilaterally right worse than left Elbows: Full range of motion tenderness to palpation of the left elbow with evidence of synovitis. Shoulders: Full range of motion has pain with range of motion Knees: ?Full range of motion with pain and tenderness to palpation Ankles: Full range of motion. ?No tenderness, swelling, increased warmth or erythema.? Feet: ?Tenderness to palpation of MTPs. With positive squeeze test SKIN Skin intact without rashes. Results Reviewed Results Reviewed: Laboratory Tests 06/22/24 09:38 WBC 9.3 RBC 3.36 L Hgb 9.0 L D Hct 28.4 L Plt Count 615 H D ESR 81 H Sodium 140 Potassium 3.8 Chloride 112 H Carbon Dioxide 23 BUN 8 L Creatinine 0.78 Total Bilirubin 0.3 AST 22 ALT 10 Alkaline Phosphatase 57 C-Reactive Protein 0.47 Assessment & Plan Assessment & Plan (1) Rheumatoid arthritis flare: Code(s): M06.9 - Rheumatoid arthritis, unspecified Category: Medical Plan: #RA Flare Patient currently having an RA flare on a background of not being able to get her Rinvoq Start prednisone taper Follow up in 4 months Plan I spent 45 minutes reviewing the record and labs, taking a history, examining the patient, discussing the treatment plan and documenting in the medical record Medications: New prednisone Take 4 tablets daily for 10 days then 3 tablets daily for 10 days then 2 tablets daily for 10 days then 1 tablet daily for 10 days 5 mg PO DIRECTED 100 tabs 0RF M06.9 - Rheumatoid arthritis, unspecified Coding Level of Care Code Est Pt Level 5 (67810) Complex EM visit Add On G2211 Diagnoses Rheumatoid arthritis flare M06.9
--- OUTSIDE RECORDS SUMMARY | 2024-06-26 16:33 | XMS_ITS | Encounter Summary ---
Author Organization [facility] Address [address] [place] [address] Care Team Providers Care Nougat Candy Maker Helper Name Role Phone Trino Peterson MD Primary Care Provider [phone] Pankaj Jalloh MD Primary Care Provider [facility] Trino Peterson MD Primary Care Provider [phone] Reason for Visit * Reason Onset Date Comments TEST RESULTS 03/23/2017 Encounter Details Date Type Department Care Team Description 03/23/2017 Pt. Non Urgent Medical Question Adult Medicine - [address] [address] Trino Peterson MD [address] [place] [address] Social History Tobacco Use Types Packs/Day Years Used Date Smoking Tobacco: Never Smokeless Tobacco: Never Alcohol Use Standard Drinks/Week Comments Yes 0 (1 standard drink = 0.6 oz pur e alcohol) occassional Alcohol Habits Answer Date Recorded How often do you have a drink containing alcohol ? Monthly or less 04/29/2019 How many drinks containing a lcohol do you have on a typical day when you are drinking? 1 or 2 04/29/2019 How often do you have six or more drinks on one occasion? Never 04/29/2019 Sex Assigned at Date Recorded Not on file Job Start Date Occupation Industry Not on file Not on file Not on file documented as of this encounter Progress Notes * Alyssa Cardenas L.P.N. - 03/23/2017 2:08 PM EDTFrom: Shabbir Morales To: Trino Peterson MD Sent: 03/23/2017 2:07 PM EDT Subject: Thyroid test I am curious if there is something not normal about my thyroid test, because it days yo come back in 6 weeks. documented in this encounter Plan of Treatment Not on file documented as of this encounter Visit Diagnoses Not on filedocumented in this encounter Care Teams Nougat Candy Maker Helper Relationship Specialty Start Date End Date Trino Peterson MD [address] [place] [address] PCP - General 03/21/01 07/04/18 Pankaj Jalloh MD [address] [place] [address] PCP - General Pediatrics 07/05/18 08/05/18 Trino Peterson MD [address] [place] [address] PCP - General Internal Medicine 08/06/18 documented as of this encounter
--- OUTSIDE RECORDS SUMMARY | 2024-06-26 16:33 | XMS_ITS | Encounter Summary ---
Author Organization [facility] Address [address] [place] [address] Care Team Providers Care Vegetable Ii Farmworker Name Role Phone Trino Peterson MD Primary Care Provider [phone] Pankaj Jalloh MD Primary Care Provider [facility] Trino Peterson MD Primary Care Provider [phone] Encounter Details Date Type Department Care Team Description 11/30/2017 Release of Information Medical Records [address] [place] [address] Abstract, Provider Social History Tobacco Use Types Packs/Day Years Used Date Smoking Tobacco: Never Smokeless Tobacco: Never Alcohol Use Standard Drinks/Week Comments Yes 0 (1 standard drink = 0.6 oz pur e alcohol) occassional wine Alcohol Habits Answer Date Recorded How often [...] on file documented as of this encounter Plan of Treatment Not on file documented as of this encounter Visit Diagnoses Not on filedocumented in this encounter Care Teams Vegetable Ii Farmworker Relationship Specialty Start Date End Date Trino Peterson MD [address] [place] [address] PCP - General 03/21/01 07/04/18 Pankaj Jalloh MD [address] [place] [address] PCP - General Pediatrics 07/05/18 08/05/18 Trino Peterson MD [address] [place] [address] PCP - General Internal Medicine 08/06/18 documented as of this encounter
--- OUTSIDE RECORDS SUMMARY | 2024-06-26 16:33 | XMS_ITS | Encounter Summary ---
Author Organization [facility] Address [address] [place] [address] Care Team Providers Care Call Center Consultant Name Role Phone Trino Peterson MD Primary Care Provider [phone] Encounter Details Date Type Department Care Team Description 12/07/2020 Pt. Non Urgent Medical Question OBGYN - [address] [address] [facility] [address] [place] [address] Social History Tobacco Use Types Packs/Day Years Used Date Smoking Tobacco: Never Smokeless Tobacco: Never Alcohol Use Standard Drinks/Week Comments Yes 1 (1 standard drink = 0.6 oz [...] file Not on file Not on file COVID-19 Exposure Response Date Recorded In the last month, have you been in contact with someone who was confirmed or suspected to have Coronavirus / COVID-19? No / Unsure 12/08/2020 8:15 AM EDT documented as of this encounter Miscellaneous Notes * Telephone Encounter - Emma Granda R.N. - 12/07/2020 3:51 PM EDTFrom: Shabbir Morales To: Vannessa Schmidt CNM Sent: 12/07/2020 3:47 PM EDT Subject: Appointment Good afternoon Vannessa, I was recently on a round of antibiotics and have finished them a developed a yeast infection.i wasprescribed one pill for knowing that this would happen, but it had not taken the yeast infection away. Can I come in for an appointment? documented in this encounter Plan of Treatment Not on file documented as of this encounter Visit Diagnoses Not on filedocumented in this encounter Care Teams Call Center Consultant Relationship Specialty Start Date End Date Trino Peterson MD [address] [place] [address] PCP - General Internal Medicine 08/06/18 documented as of this encounter
--- OUTSIDE RECORDS SUMMARY | 2024-06-26 16:33 | XMS_ITS | Encounter Summary ---
Author Organization [facility] Address [address] [place] [address] Care Team Providers Care Transmission Specialist Name Role Phone Trino Peterson MD Primary Care Provider [phone] Encounter Details Date Type Department Care Team Description 01/15/2021 Refill [facility] - [facility] [address] [place] [address] [facility] [address] [place] [address] Social History Tobacco Use Types Packs/Day Years [...] have Coronavirus / COVID-19? No / Unsure 01/13/2021 8:35 AM EDT documented as of this encounter Plan of Treatment Not on file documented as of this encounter Visit Diagnoses Not on filedocumented in this encounter Care Teams Transmission Specialist Relationship Specialty Start Date End Date Trino Peterson MD [address] [place] [address] PCP - General Internal Medicine 08/06/18 documented as of this encounter
--- OUTSIDE RECORDS SUMMARY | 2024-06-26 16:33 | XMS_ITS | Encounter Summary ---
Author Organization [facility] Address [address] [place] [address] Care Team Providers Care Senior Communications Specialist Name Role Phone Trino Peterson MD Primary Care Provider [phone] Reason for Visit * Reason Onset Date Comments Work note 02/02/2022 Encounter Details Date Type Department Care Team Description 02/02/2022 Telephone Adult Medicine [address] [address] Trino Peterson MD [address] [place] [address] Work note Social History Tobacco Use Types Packs/Day Years [...] Exposure Response Date Recorded In the last 10 days, have yo u been in contact with someone who was confirmed or suspected to have Coronavirus/COVID-19? No / Unsure 01/31/2022 10:30 AM EDT documented as of this encounter Miscellaneous Notes * Telephone Encounter - Anjelica Maggi - 02/02/2022 2:55 PM EDT Work note is for: Out of Work Note Has patient been seen for the reason they were absent from work? Yes For what medical reason was/is patient out of work?: Upper respitory infection If Yes, by whom?: Nori Benitez Date patient seen: 01/31 What dates does the patient need the note to cover: Beginning date: 01/31 End Date: 02/01 If note for return to work, what is return date: 02/02 If note is to return to work, are there restrictions? No. If yes, list: Patient would like note to be: Uploaded to [employer]. If not mail to [address] [facility] [address] *she did not go to work yesterday or today because everytime she sneezed she would vomit. She was waiting on the medication during this time but was advised that she could buy it over the counter. documented in this encounter Plan of Treatment Not on file documented as of this encounter Visit Diagnoses Not on filedocumented in this encounter Care Teams Senior Communications Specialist Relationship Specialty Start Date End Date Trino Peterson MD [address] [place] [address] PCP - General Internal Medicine 08/06/18 documented as of this encounter
--- OUTSIDE RECORDS SUMMARY | 2024-06-26 16:33 | XMS_ITS | Encounter Summary ---
Author Organization [facility] Address [address] [place] [address] Care Team Providers Care Registered Nurse Maternal Child Name Role Phone Trino Peterson MD Primary Care Provider [phone] Encounter Details Date Type Department Care Team Description 01/14/2021 Pt. Non Urgent Medical Question OBGYN - [address] [address] Vannessa [facility] [address] [place] [address] Social History Tobacco Use Types Packs/Day Years [...] Telephone Encounter - Emma Granda R.N. - 01/14/2021 3:16 PM EDTFrom: Shabbir Morales To: Vannessa Schmidt CNM Sent: 01/14/2021 2:59 PM EDT Subject: Test results Good afternoon, I received my test results from my appointment yesterday. Will I be prescribed some medication? I haven't heard from the doctor yet documented in this encounter Plan of Treatment Not on file documented as of this encounter Visit Diagnoses Not on filedocumented in this encounter Care Teams Registered Nurse Maternal Child Relationship Specialty Start Date End Date Trino Peterson MD [address] [place] [address] PCP - General Internal Medicine 08/06/18 documented as of this encounter
--- OUTSIDE RECORDS SUMMARY | 2024-06-26 16:33 | XMS_ITS | Encounter Summary ---
Author Organization [facility] Address [address] [place] [address] Care Team Providers Care Top Lift Nailer Name Role Phone Trino Peterson MD Primary Care Provider [phone] Encounter Details Date Type Department Care Team Description 11/02/2018 Hospital Medical Records [address] [place] [address] Pankaj Thomason MD 175 [facility] [address] [place] [address] Social History Tobacco Use Types Packs/Day Years [...] on filedocumented in this encounter Care Teams Top Lift Nailer Relationship Specialty Start Date End Date Trino Peterson MD [address] [place] [address] PCP - General Internal Medicine 08/06/18 documented as of this encounter
--- OUTSIDE RECORDS SUMMARY | 2024-06-26 16:33 | XMS_ITS | Encounter Summary ---
Author Organization [facility] Address [address] [place] [address] Care Team Providers Care Air Compressor Operator Name Role Phone Trino Peterson MD Primary Care Provider [phone] Encounter Details Date Type Department Care Team Description 05/18/2023 Electrician Ship Report Medical Records [address] [place] [address] Marvin Flower MD Social History Tobacco Use Types Packs/Day Years [...] on filedocumented in this encounter Care Teams Air Compressor Operator Relationship Specialty Start Date End Date Trino Peterson MD [address] [place] [address] PCP - General Internal Medicine 08/06/18 documented as of this encounter
--- OUTSIDE RECORDS SUMMARY | 2024-06-26 16:33 | XMS_ITS | Encounter Summary ---
Author Organization [facility] Address [address] [place] [address] Care Team Providers Care Tail Dogger Name Role Phone Trino Peterson MD Primary Care Provider [phone] Reason for Visit * Reason Onset Date Comments Medication 10/01/2018 Colon prep Encounter Details Date Type Department Care Team Description 10/01/2018 Refill Gastroenterology - [place] [address] [facility] [address] [place] [address] Pankaj Thomason MD [address] [facility] [address] [place] [address] Medication (Colon prep) Social History Tobacco Use Types Packs/Day Years [...] on file documented as of this encounter Miscellaneous Notes * Telephone Encounter - Aviva Olmedo - 10/01/2018 10:52 AM EDT Patient scheduled for colon on 11/02/18, please sign orders for colon prep documented in this encounter Plan of Treatment Not on file documented as of this encounter Visit Diagnoses Not on filedocumented in this encounter Care Teams Tail Dogger Relationship Specialty Start Date End Date Trino Peterson MD [address] [place] [address] PCP - General Internal Medicine 08/06/18 documented as of this encounter
--- OUTSIDE RECORDS SUMMARY | 2024-06-26 16:33 | XMS_ITS | Encounter Summary ---
Author Organization [facility] Address [address] [place] [address] Care Team Providers Care Athlete Marketing Agent Name Role Phone Trino Peterson MD Primary Care Provider [phone] Reason for Visit * Reason Comments E-prescribe Rx Request Encounter Details Date Type Department Care Team Description 06/09/2019 Refill Adult Medicine - [place] [address] [place] [address] Constance Raman PA-C [address] [place] [address] E-prescribe Rx Request Social History Tobacco Use Types Packs/Day Years [...] encounter Miscellaneous Notes * Telephone Encounter - Constance Raman PA-C - 06/10/2019 11:08 PM EST Approved * Telephone Encounter - Marina Paul M.A. - 06/10/2019 11:55 AM EST Date of last office visit was 05/20/19. Pended appt for 06/17/19 Lab Results Component Value Date NA 138 05/08/2019 K 4.1 05/08/2019 CO2 28 05/08/2019 CL 107 05/08/2019 BUN 11 05/08/2019 CREAT 0.95 05/08/2019 GLU 89 05/08/2019 CA 9.8 05/08/2019 GFR > 60 05/08/2019 * Telephone Encounter - Katyabharat Lundberg - 06/09/2019 9:47 AM EST Patient would like script to be: E-PRESCRIBED/FAXED TO PHARMACY WHEN WAS THE PATIENT'S LAST APPOINTMENT IN ADULT MEDICINE? 05/20/19 WHEN WAS THE LAST TIME THE PATIENT SAW THEIR PCP? 05/28/18 Does patient have an upcoming appointment? Yes 06/17/19 (THE MEDICATION REQUESTED IS ON THE MED LIST ABOVE) All of the medications requested were on the CURRENT MEDS list Did you check the Pharmacy information above?: YES Patient wants: 30 -day supply Is this a mail order prescription request ? NO If the refill is from a FAXED refill request what is the RX # listed on the fax? N/A Patients current insurance carrier is: Payor: [employer] FFS / Plan: [employer] / Product Type: MEDICAID RISK documented in this encounter Plan of Treatment Not on file documented as of this encounter Visit Diagnoses Not on filedocumented in this encounter Care Teams Athlete Marketing Agent Relationship Specialty Start Date End Date Trino Peterson MD [address] [place] [address] PCP - General Internal Medicine 08/06/18 documented as of this encounter
--- OUTSIDE RECORDS SUMMARY | 2024-06-26 16:33 | XMS_ITS | Encounter Summary ---
Author Organization [facility] Address [address] [place] [address] Care Team Providers Care Orthotic/Prosthetic Practitioner Name Role Phone Trino Peterson MD Primary Care Provider [phone] Pankaj Jalloh MD Primary Care Provider [facility] Trino Peterson MD Primary Care Provider [phone] Encounter Details Date Type Department Care Team Description 09/13/2010 Oncology Transplant Network Manager Report Medical Records [address] [place] [address] Social History Tobacco Use Types Packs/Day Years [...] on filedocumented in this encounter Care Teams Orthotic/Prosthetic Practitioner Relationship Specialty Start Date End Date Trino Peterson MD [address] [place] [address] PCP - General 03/21/01 07/04/18 Pankaj Jalloh MD [address] [place] [address] PCP - General Pediatrics 07/05/18 08/05/18 Trino Peterson MD [address] [place] [address] PCP - General Internal Medicine 08/06/18 documented as of this encounter
--- OUTSIDE RECORDS SUMMARY | 2024-06-26 16:33 | XMS_ITS | Continuity of Care Document ---
Author Organization [facility] Address [address] [place] [address] [place] [address] Phone Care Team Providers Care Plumbing Contractor Name Role Phone Unavailable Unavailable Unavailable Allergies, [...] Copied on Encounter ESTABLISHED OFFICE/OUTPAT IENT VISIT [facility], [address] [place] [address], [id number], tel:[phone] [facility] [place] work physical (chief complaint) Other PE No Information Family History Family Member Type Diagnosis Age At Onset No Information Payers Payer name Insurance type Covered alliance party ID Authoriza tion(s) No Information Social History [...] Mental Status Date Cognitive Assessment Orientation - [place] ed to time, place, person, situation. Patient Care Teams Name Effective Dates (start - stop) Status Members No Information
--- OUTSIDE RECORDS SUMMARY | 2024-06-26 16:33 | XMS_ITS | Encounter Summary ---
Author Organization [facility] Address [address] [place] [address] Care Team Providers Care Endoscopy Tech Name Role Phone Trino Peterson MD Primary Care Provider [phone] Encounter Details Date Type Department Care Team Description 05/06/2019 Release of Information Medical Records [address] [place] [address] Abstract, Provider Social History Tobacco Use Types [...] on file documented as of this encounter Nursing Notes * Marianne Cheney - 05/06/2019 10:12 AM EST AUTHORIZATION TO OBTAIN RECORDS MAILED TO [facility]. documented in this encounter Plan of Treatment Not on file documented as of this encounter Visit Diagnoses Not on filedocumented in this encounter Care Teams Endoscopy Tech Relationship Specialty Start Date End Date Trino Peterson MD [address] [place] [address] PCP - General Internal Medicine 08/06/18 documented as of this encounter
--- OUTSIDE RECORDS SUMMARY | 2024-06-26 16:33 | XMS_ITS | Encounter Summary ---
Author Organization [facility] Address [address] [place] [address] Care Team Providers Care Litigation Assistant Name Role Phone Trino Peterson MD Primary Care Provider [phone] Encounter Details Date Type Department Care Team Description 04/12/2021 Pt. Non Urgent Medical Question Rheumatology - [address] [address] Marvin Flower MD Social History Tobacco Use [...] have Coronavirus / COVID-19? No / Unsure 04/13/2021 3:19 PM EST documented as of this encounter Miscellaneous Notes * Telephone Encounter - Afua Norris L.P.N. - 04/12/2021 3:57 PM ESTFrom: Shabbir Morales To: Conrado Flower Sent: 04/12/2021 3:30 PM EST Subject: Test results I just received my test results, but I'm unclear if they are good? Usually, Dr. Flower will give me a summary of my results documented in this encounter Plan of Treatment Not on file documented as of this encounter Visit Diagnoses Not on filedocumented in this encounter Care Teams Litigation Assistant Relationship Specialty Start Date End Date Trino Peterson MD [address] [place] [address] PCP - General Internal Medicine 08/06/18 documented as of this encounter
--- OUTSIDE RECORDS SUMMARY | 2024-06-26 16:33 | XMS_ITS | Encounter Summary ---
Author Organization [facility] Address [address] [place] [address] Care Team Providers Care Warehouse Attendant Name Role Phone Trino Peterson MD Primary Care Provider [phone] Encounter Details Date Type Department Care Team Description 07/08/2019 SDOH FORMS Medical Records [address] [place] [address] Abstract, Provider Social History Tobacco Use Types [...] on filedocumented in this encounter Care Teams Warehouse Attendant Relationship Specialty Start Date End Date Trino Peterson MD [address] [place] [address] PCP - General Internal Medicine 08/06/18 documented as of this encounter
--- OUTSIDE RECORDS SUMMARY | 2024-06-26 16:33 | XMS_ITS | Encounter Summary ---
Author Organization [facility] Address [address] [place] [address] Care Team Providers Care Segment Producer Name Role Phone Trino Peterson MD Primary Care Provider [phone] Reason for Visit * Reason Onset Date Comments Abnormal Mammogram 01/30/2019 Encounter Details Date Type Department Care Team Description 01/30/2019 Telephone Radiology - [address] [address] Radiology, Authorizing Abnormal Mammogram Social History Tobacco Use Types Packs/Day Years [...] encounter Miscellaneous Notes * Telephone Encounter - Olivia Vidales - 01/30/2019 10:36 AM EDT Sent certified letter out on 01/30/19 bw documented in this encounter Plan of Treatment Not on file documented as of this encounter Visit Diagnoses Not on filedocumented in this encounter Care Teams Segment Producer Relationship Specialty Start Date End Date Trino Peterson MD [address] [place] [address] PCP - General Internal Medicine 08/06/18 documented as of this encounter
--- OUTSIDE RECORDS SUMMARY | 2024-06-26 16:33 | XMS_ITS | Encounter Summary ---
Author Organization [facility] Address [address] [place] [address] Care Team Providers Care Insurance Account Executive Name Role Phone Trino Peterson MD Primary Care Provider [phone] Encounter Details Date Type Department Care Team Description 03/07/2022 Telephone Pulmonology - [place] [address] [facility] [address] [place] [id number] Trino Peterson MD [address] [place] [address] Social History Tobacco Use Types Packs/Day Years [...] Recorded In the last 10 days, have sofia haas been in contact with someone who was confirmed or suspected to have Coronavirus/COVID-19? No / Unsure 03/08/2022 8:39 AM EDT documented as of this encounter Miscellaneous Notes * Telephone Encounter - Maia Mistry - 03/07/2022 12:14 PM EDT Request for a referral to a [facility] Specialist for a patient with a [facility] PCP. If patient does NOT have a [facility] PCP they must obtain a referral from their PCP before being seen-do not submit request to Referrals department-contact patient. Specialty patient is being referred to: Pulmo Name of Specialist patient is seeing: Vaishali Gusman Reason/diagnosis for visit: COPD, asthma, dyspnea Date of appoinment: 03/08/22 If retro, date referral needs to start: N/A Trino Peterson Payor: [employer] FFS / Plan: [employer] HOST $20 / Product Type: [employer] [id number] documented in this encounter Plan of Treatment Not on file documented as of this encounter Visit Diagnoses Not on filedocumented in this encounter Care Teams Insurance Account Executive Relationship Specialty Start Date End Date Trino Peterson MD [address] [place] [address] PCP - General Internal Medicine 08/06/18 documented as of this encounter
--- OUTSIDE RECORDS SUMMARY | 2024-06-26 16:33 | XMS_ITS | Encounter Summary ---
Author Organization [facility] Address [address] [place] [address] Care Team Providers Care Traffic Counter Name Role Phone Trino Peterson MD Primary Care Provider [phone] Encounter Details Date Type Department Care Team Description 12/07/2022 Orders Only Medical Records [address] [place] [address] Abstract, Provider Social History Tobacco Use Types [...] suspected to have Coronavirus/COVID-19? No / Unsure 12/08/2022 2:29 PM EDT documented as of this encounter Plan of Treatment Not on file documented as of this encounter Procedures Procedure Name Priority Date/Time Associated Diagnosis Comments OUTSIDE ULTRASOUND Routine 12/06/[address] Routine 12/06/2022 documented in this encounter Results * OUTSIDE CT (12/06/2022) Provider Abstract RADIOLOGY * OUTSIDE ULTRASOUND (12/06/2022) Provider Abstract RADIOLOGY documented in this encounter Visit Diagnoses Not on filedocumented in this encounter Care Teams Traffic Counter Relationship Specialty Start Date End Date Trino Peterson MD [address] [place] [address] PCP - General Internal Medicine 08/06/18 documented as of this encounter
--- OUTSIDE RECORDS SUMMARY | 2024-06-26 16:33 | XMS_ITS | Encounter Summary ---
Author Organization [facility] Address [address] [place] [address] Care Team Providers Care Property Field Inspector Name Role Phone Trino Peterson MD Primary Care Provider [phone] Reason for Visit * Reason Comments E-prescribe Rx Request Encounter Details Date Type Department Care Team Description 11/26/2018 Refill Rheumatology - [address] [address] Marvin Flower MD E-prescribe Rx Request Social History Tobacco Use [...] encounter Miscellaneous Notes * Telephone Encounter - Minnie Swain L.P.N. - 11/26/2018 10:44 AM EDT Lab Results Component Value Date WBC 10.6 11/13/2018 HGB 11.0 11/13/2018 HCT 35.8 11/13/2018 MCV 91.3 11/13/2018 PLTCT 411 11/13/2018 Lab Results Component Value Date ALB 3.8 06/27/2018 SGOT 14 11/13/2018 SGPT 17 11/13/2018 TBILI 0.2 06/27/2018 ALKPHOS 64 06/27/2018 TP 7.5 06/27/2018 * Telephone Encounter - Marisol Josephine - 11/26/2018 10:33 AM EDT Patient would like script to be: E-PRESCRIBED/FAXED TO PHARMACY WHEN WAS THE PATIENT'S LAST APPOINTMENT IN ADULT MEDICINE? 09/12/2018 WHEN WAS THE LAST TIME THE PATIENT SAW THEIR PCP? 05/28/2018 Does patient have an upcoming appointment? Yes 01/09/2019 (THE MEDICATION REQUESTED IS ON THE MED [...] N/A Patients current insurance carrier is: Payor: [employer] / Plan: [employer] / Product Type: MEDICAID RISK documented in this encounter Plan of Treatment Not on file documented as of this encounter Visit Diagnoses Diagnosis Seropositive rheumatoid arthritis Rheumatoid arthritis documented in this encounter Care Teams Property Field Inspector Relationship Specialty Start Date End Date Trino Peterson MD [address] [place] [address] PCP - General Internal Medicine 08/06/18 documented as of this encounter
--- OUTSIDE RECORDS SUMMARY | 2024-06-26 16:33 | XMS_ITS | Encounter Summary ---
Author Organization [facility] Address [address] [place] [address] Care Team Providers Care Superintendent Concrete Mixing Plant Name Role Phone Trino Peterson MD Primary Care Provider [phone] Reason for Visit * Reason Onset Date Comments Prior Authorization 08/14/2023 Encounter Details Date Type Department Care Team Description 08/14/2023 Refill Pulmonology - [place] [address] [facility] [address] [place] [phone] Ladonna Virk, DIRECTOR PAYER 175 [facility] [address] [place] [address] Prior Authorization Social History Tobacco Use Types Packs/Day Years [...] encounter Miscellaneous Notes * Telephone Encounter - Keli Leonardo M.A. - 08/16/2023 4:04 PM EDT Auth approved Exp 08/13/24 Keli Leonardo Prior Auth Dep Ext [id number] * Telephone Encounter - Keli Leonardo M.A. - 08/15/2023 11:47 AM EDT Auth sent with cmm Dx:asthma Keli Leonardo Prior Auth Dep Ext [id number] * Telephone Encounter - Ira Cohen - 08/14/2023 4:56 PM EDT Prior Authorization for Medication-do not complete and send this encounter unless you have the fax from the pharmacy. Is this a Cover My Meds request: Yes -- Sparks Code [id number] Name of Medication FLUTICASONE-SALMETEROL Dose of Medication 230-21 MCG/ACT AEROSOL What is the RX # from the faxed refill? How does patient take this med? What Pharmacy did the fax come from: [facility] Pharmacy fax #: [phone] [employer] Party Information from fax: What Prescription Plan does the patient have? BIN/PCN if applicable: Cardholder ID: Person Code: Relationship Code: Help desk phone: documented in this encounter Plan of Treatment Not on file documented as of this encounter Visit Diagnoses Not on filedocumented in this encounter Care Teams Superintendent Concrete Mixing Plant Relationship Specialty Start Date End Date Trino Peterson MD [address] [place] [address] PCP - General Internal Medicine 08/06/18 documented as of this encounter
--- OUTSIDE RECORDS SUMMARY | 2024-06-26 16:33 | XMS_ITS | Encounter Summary ---
Author Organization [facility] Address [address] [place] [address] Care Team Providers Care Multi Mission Helicopter Aircrewman Name Role Phone Trino Peterson MD Primary Care Provider [phone] Pankaj Jalloh MD Primary Care Provider [facility] Trino Peterson MD Primary Care Provider [phone] Reason for Visit * Reason Onset Date Comments Shortness Of Breath 07/26/2011 Encounter Details Date Type Department Care Team Description 07/26/2011 Telephone Adult Medicine - [address] [id number] Trino Peterson MD [address] [place] [address] Shortness Of Breath Social History Tobacco Use Types Packs/Day Years [...] encounter Miscellaneous Notes * Telephone Encounter - Debbie Edwards L.P.N. - 07/27/2011 11:18 AM EST t states she went to er yesterday for sob Was given an inhaler and was told does not know why she is having sob Today sob persists along with sharp pressure in face Advised to go back to er No appts in office * Telephone Encounter - Nikkie Miller - 07/27/2011 11:16 AM EST Went to [place] [facility] for sob calling stating she is still having same problem triage took call * Telephone Encounter - Debbie Edwards L.P.NAra - 07/26/2011 3:23 PM EST Pt states she went to [facility] on 05[facility]17 for sob was told she had sinusitis Chest was done which shestates was normal Her sob did not completely resolve This past week she has been very sob with the last 2 days were she states it will take her about seven minutes to get to car from door Sob is audible over phone She has also been very fatigued Advised er she is agreeable with this * Telephone Encounter - Maricel Ballesteros - 07/26/2011 3:07 PM EST Symptoms patient is presenting: SOB How long has patient had these symptoms?: ON AND OFF SINCE April, BUT ALL THE TIME OVER THE LASTCOUPLE OF WEEKS. PCP: Trino Peterson MD Payor: [facility] INSURANCE Plan: [employer]UR[employer] Product Type: OTHER documented in this encounter Plan of Treatment Not on file documented as of this encounter Visit Diagnoses Not on filedocumented in this encounter Care Teams Multi Mission Helicopter Aircrewman Relationship Specialty Start Date End Date Trino Peterson MD [address] [place] [address] PCP - General 10/31/01 2/13/19 Pankaj Jalloh MD [address] [place] [address] PCP - General Pediatrics 07/05/18 08/05/18 Trino Peterson MD [address] [place] [address] PCP - General Internal Medicine 08/06/18 documented as of this encounter
--- OUTSIDE RECORDS SUMMARY | 2024-06-26 16:33 | XMS_ITS | Encounter Summary ---
Author Organization [facility] Address [address] [place] [address] Care Team Providers Care Children'S Counselor Name Role Phone Trino Peterson MD Primary Care Provider [phone] Encounter Details Date Type Department Care Team Description 03/15/2024 Orders Only Medical Records [address] [place] [address] [facility] Social History Tobacco Use Types Packs/Day Years [...] Name Priority Date/Time Associated Diagnosis Comments OUTSIDE PLAIN FILM Routine 03/11/2024 documented in this encounter Results * OUTSIDE PLAIN FILM (03/11/2024) [facility] documented in this encounter Visit Diagnoses Not on filedocumented in this encounter Care Teams Children'S Counselor Relationship Specialty Start Date End Date Trino Peterson MD [address] [place] [address] PCP - General Internal Medicine 08/06/18 documented as of this encounter
--- OUTSIDE RECORDS SUMMARY | 2024-06-26 16:33 | XMS_ITS | Encounter Summary ---
Author Organization [facility] Address [address] [place] [address] Care Team Providers Care Director Hedis Name Role Phone Trino Peterson MD Primary Care Provider [phone] Encounter Details Date Type Department Care Team Description 07/28/2022 Pt. Non Urgent Medical Question Pulmonology - [place] 175 [facility] [address] [place] [phone] Ladonna Virk APRN 175 [facility] [address] [place] [phone] Social History Tobacco Use Types Packs/Day Years [...] encounter Miscellaneous Notes * Telephone Encounter - Helena Malhotra M.A. - 07/28/2022 2:23 PM ESTFrom: Shabbir Morales To: Tanisha Virk Sent: 07/28/2022 10:00 AM EST Subject: Appointment Good morning, Is there any way I can be seen? My chest has been hurting all week, my chest feels heavy and I am wheezing. I have been using my pumps and taking my night meds as well. This is the 4th day and I havebeen coughing a lot. I tested negative for covid. documented in this encounter Plan of Treatment Not on file documented as of this encounter Visit Diagnoses Not on filedocumented in this encounter Care Teams Director Hedis Relationship Specialty Start Date End Date Trino Peterson MD [address] [place] [address] PCP - General Internal Medicine 08/06/18 documented as of this encounter
--- OUTSIDE RECORDS SUMMARY | 2024-06-26 16:33 | XMS_ITS | Encounter Summary ---
Author Organization [facility] Address [address] [place] [address] Care Team Providers Care Body Maker Machine Setter Name Role Phone Trino Peterson MD Primary Care Provider [phone] Reason for Visit * Reason Onset Date Comments refill request 08/03/2022 Encounter Details Date Type Department Care Team Description 08/03/2022 Refill Pulmonology - [place] 175 [facility] [address] [place] [phone] Ladonna Virk, FREIGHT BROKER 175 [facility] [address] [place] [address] refill request Social History Tobacco Use Types Packs/Day Years [...] was confirmed or suspected to have Coronavirus/COVID-19? Unable to assess 08/02/2022 3:30 PM EDT documented as of this encounter Miscellaneous Notes * Telephone Encounter - Ira Cohen - 08/03/2022 9:28 AM EDT Pharmacy fax received requesting PA, but patient would need a new script. Please refill to process PA. ROMAN 03/22/22 NOV 09/06/22 documented in this encounter Plan of Treatment Not on file documented as of this encounter Visit Diagnoses Diagnosis Moderate persistent asthma with status asthmaticus Unspecified asthma, with status asthmaticus SOB (shortness of breath) on exertion Shortness of breath documented in this encounter Care Teams Body Maker Machine Setter Relationship Specialty Start Date End Date Trino Peterson MD [address] [place] [address] PCP - General Internal Medicine 08/06/18 documented as of this encounter
--- OUTSIDE RECORDS SUMMARY | 2024-06-26 16:33 | XMS_ITS | Encounter Summary ---
Author Organization [facility] Address [address] [place] [address] Care Team Providers Care Cleaning Custodian Name Role Phone Trino Peterson MD Primary Care Provider [phone] Encounter Details Date Type Department Care Team Description 06/16/2020 Pt. Non Urgent Medical Question Adult Medicine [address] [address] Trino Peterson MD [address] [place] [address] Social History Tobacco Use Types Packs/Day Years [...] have Coronavirus / COVID-19? No / Unsure 06/05/2020 9:32 AM EST documented as of this encounter Progress Notes * Devika Hardy M.A. - 06/16/2020 4:16 PM ESTFrom: Shabbir Morales To: Trino Peterson MD Sent: 06/16/2020 4:16 PM EST Subject: Note to return to work Good afternoon, My apologies, I just spoke with a nurse and then my my job called with some more information. My job is suggesting I get a note to return to work,(Post Covid) but they are afraid I will have symptoms. Can I Please have a note to return to work or have an appointment to meet with Dr Ara Peterson via telemed to assess my hives and determine when I can go back. Thanks again, Shabbir Morales documented in this encounter Plan of Treatment Not on file documented as of this encounter Visit Diagnoses Not on filedocumented in this encounter Care Teams Cleaning Custodian Relationship Specialty Start Date End Date Trino Peterson MD [address] [place] [address] PCP - General Internal Medicine 08/06/18 documented as of this encounter
--- OUTSIDE RECORDS SUMMARY | 2024-06-26 16:34 | XMS_ITS | Encounter Summary ---
Author Organization [facility] Address [address] [place] [address] Care Team Providers Care Furniture Finisher Helper Name Role Phone Trino Peterson MD Primary Care Provider [phone] Pankaj Jalloh MD Primary Care Provider [facility] Trino Peterson MD Primary Care Provider [phone] Reason for Visit * Reason Onset Date Comments Testing 07/05/2016 Encounter Details Date Type Department Care Team Description 07/05/2016 Telephone Adult Medicine [facility] [address] [place] [address] Deb Diallo FNP Testing Social History Tobacco Use Types Packs/Day Years [...] encounter Miscellaneous Notes * Telephone Encounter - Abbi Nguyen - 07/05/2016 8:09 PM EST Shabbir Morales was scheduled for a CT Scan of abdomen and pelvis on 12/20/16, patient cancelledappointment. Patient was rescheduled to 05/18/16, patient cancelled appointment We have made an attempt to reschedule on , as well as sent a letter on 05/31/16 to reschedule the appointment and were unsuccessful; therefore we are removing the test from our Scheduled Orders Report. Please note that this test must be reordered if required in the future. documented in this encounter Plan of Treatment Not on file documented as of this encounter Visit Diagnoses Not on filedocumented in this encounter Care Teams Furniture Finisher Helper Relationship Specialty Start Date End Date Trino Peterson MD [address] [place] [address] PCP - General 03/21/01 07/04/18 Pankaj Jalloh MD [address] [place] [address] PCP - General Pediatrics 07/05/18 08/05/18 Trino Peterson MD [address] [place] [address] PCP - General Internal Medicine 08/06/18 documented as of this encounter
--- OUTSIDE RECORDS SUMMARY | 2024-06-26 16:34 | XMS_ITS | Encounter Summary ---
Author Organization [facility] Address [address] [place] [address] Care Team Providers Care General Administrator Name Role Phone Trino Peterson MD Primary Care Provider [phone] Pankaj Jalloh MD Primary Care Provider [facility] Trino Peterson MD Primary Care Provider [phone] Encounter Details Date Type Department Care Team Description 11/26/2015 Medical Billing Coordinator Report Medical Records [address] [place] [address] William Juarez MD Social History Tobacco Use Types Packs/Day [...] on filedocumented in this encounter Care Teams General Administrator Relationship Specialty Start Date End Date Trino Peterson MD [address] [place] [address] PCP - General 03/21/01 07/04/18 Pankaj Jalloh MD [address] [place] [address] PCP - General Pediatrics 07/05/18 08/05/18 Trino Peterson MD [address] [place] [address] PCP - General Internal Medicine 08/06/18 documented as of this encounter
--- OUTSIDE RECORDS SUMMARY | 2024-06-26 16:34 | XMS_ITS | Encounter Summary ---
Author Organization [facility] [place] [address] Care Team Providers Care Corporate Travel Expert Name Role Phone Trino Peterson MD Primary Care Provider [phone] Reason for Visit * Reason Onset Date Comments Results 04/29/2024 Encounter Details Date Type Department Care Team (Late st Contact Info) Description 04/29/2024 Telephone Obstetrics and Gynecology - [place] [address] [place] [phone] Viki Elkins MA Results Social History Tobacco [...] for your loved ones. For example, child specialist or elderly care for an older adult? [...] 3:00 PM EDT Office Visit Pulmonolgy - [place] [address] [facility] [address] [place] [address] Ladonna Virk NP [address] [place] [address] documented as of this encounter Visit Diagnoses Not on filedocumented in this encounter Additional Health Concerns Infection Onset Date Last Indicated Resolved Time Herpes simplex 04/24/2024 04/24/2024 documented as of this encounter Care Teams Corporate Travel Expert Relationship Specialty Start Date End Date Trino Peterson MD [address] [place] [address] PCP - General Internal Medicine 04/23/24 documented as of this encounter
--- OUTSIDE RECORDS SUMMARY | 2024-06-26 16:34 | XMS_ITS | Encounter Summary ---
Author Organization [facility] Address [address] [place] [address] Care Team Providers Care Construction Technology Instructor Name Role Phone Trino Peterson MD Primary Care Provider [phone] Reason for Visit * Reason Onset Date Comments Prior Authorization 03/10/2022 Ct chest Encounter Details Date Type Department Care Team Description 03/10/2022 Telephone Pulmonology - [place] 175 [facility] [address] [place] [phone] Ladonna Virk, CUBING MACHINE TENDER 175 [facility] [address] [place] [address] Prior Authorization (Ct chest) Social History Tobacco Use Types Packs/Day Years [...] encounter Miscellaneous Notes * Telephone Encounter - Sharifa Garay - 03/10/2022 3:55 PM EDT Will process ins auth once notes completed documented in this encounter Plan of Treatment Not on file documented as of this encounter Visit Diagnoses Not on filedocumented in this encounter Care Teams Construction Technology Instructor Relationship Specialty Start Date End Date Trino Peterson MD [address] [place] [address] PCP - General Internal Medicine 08/06/18 documented as of this encounter
--- OUTSIDE RECORDS SUMMARY | 2024-06-26 16:34 | XMS_ITS | Encounter Summary ---
Author Organization [facility] [place] [address] Care Team Providers Care Poultry Eviscerator Name Role Phone Trino Peterson MD Primary Care Provider [phone] Reason for Visit * Reason Comments Contractions IUD Encounter Details Date Type Department Care Team (Late st Contact Info) Description 05/29/2024 1:00 PM EST Procedure visit Obstetrics and Gynecology - [place] [address] [place] [address] Minnie Tejada DO [address] [place] [address] Encounter for IUD insertion (Primary Dx); test [...] care for your loved ones. For example, registered nurse maternal child or elderly care for an older adult? [...] Insertion Date/Time: 05/29/2024 1:33 PM Performed by: Minine Tejada DO Authorized by: Minnie Tejada DO [...] 3:00 PM EDT Office Visit Pulmonol - [place] [address] [facility] [address] [place] [address] Ladonna Virk NP [address] [facility] [address] [place] [address] documented as of this encounter Procedures Procedure Name Priority Date/Time Associated Diagnosis Comments POC , URINE DIAGNOSTIC Routine 05/29/2024 2:15 PM EST test negative Encounter for IUD insertion GA INSERTION INTRAUTERINE DEVICE Routine 05/29/2024 1:33 PM [...] OF CARE TEST E NTER/EDIT ORDERABLES * GA INSERTION INTRAUTERINE DEVICE (05/29/2024 1:33 PM EST) [...] documented as of this encounter Care Teams Poultry Eviscerator Relationship Specialty Start Date End Date Trino Peterson MD [address] [place] [address] PCP - General Internal Medicine 04/23/24 documented as of this encounter
--- OUTSIDE RECORDS SUMMARY | 2024-06-26 16:34 | XMS_ITS | Encounter Summary ---
Author Organization [facility] Address [address] [place] [address] Care Team Providers Care Family Advocate Name Role Phone Trino Peterson MD Primary Care Provider [phone] Reason for Visit * Reason Onset Date Comments Prior Authorization 09/17/2021 Encounter Details Date Type Department Care Team Description 09/17/2021 Telephone Adult Medicine [address] [address] Trino Peterson MD [address] [place] [address] Prior Authorization Social History Tobacco Use Types [...] suspected to have Coronavirus/COVID-19? No / Unsure 09/13/2021 11:22 AM EDT documented as of this encounter Miscellaneous Notes * Telephone Encounter - Timothy Garber PA-C - 10/01/2021 11:38 AM EDT Azelastine eyedrops sent to pharmacy. * Telephone Encounter - Kathy Huerta M.A. - 10/01/2021 11:35 AM EDT Azelastine is [place] p [phone] Prior Auth tobi Huerta M.A. Regional Prior Authorizations Ext [id number] Fax: [phone] [place] [phone] Prior Auth tobi * Telephone Encounter - Aviva Perez M.A. - 09/20/2021 9:14 AM EDT Prior authorization requiring more information. Information provided and faxed back today Trials Dexamethasone Fluticasone * Telephone Encounter - Aviva Perez M.A. - 09/17/2021 11:36 AM EDT PRIOR AUTHORIZATION Completed today on cover my meds for the olapatidine Dx Season allergies. * Telephone Encounter - Isabella Vergara - 09/17/2021 11:31 AM EDT Prior Authorization for Medication-do not complete and send this encounter unless you have the fax from the pharmacy. Is this a Cover My Meds request: Yes -- Sparks Code [id number] Name of Medication olopatadine (Patanol) Dose of Medication 0.1% What is the RX # from the faxed refill? NA How does patient take this med? apply 1 Drop to the eye 2 times daily What Pharmacy did the fax come from: [facility] Pharmacy fax #: [phone] documented in this encounter Plan of Treatment Not on file documented as of this encounter Visit Diagnoses Not on filedocumented in this encounter Care Teams Family Advocate Relationship Specialty Start Date End Date Trino Peterson MD [address] [place] [address] PCP - General Internal Medicine 08/06/18 documented as of this encounter
--- OUTSIDE RECORDS SUMMARY | 2024-06-26 16:34 | XMS_ITS | Encounter Summary ---
Author Organization [facility] [place] [address] Care Team Providers Care Diesel Technician Mechanic Name Role Phone Trino Peterson MD Primary Care Provider [phone] Encounter Details Date Type Department Care Team (Late st Contact Info) Description 05/30/2024 Telephone [facility] [place] [address] [facility] [address] [place] [phone] Helena Lawrence MA Social History Tobacco Use [...] care for your loved ones. For example, maternal child nurse or elderly care for an older adult? [...] vm to patient to contact [facility] at [phone] to set up the shipment at [place] [address] [facility] [[email or web address]] [id number] Tax id: [id number] documented in this encounter Plan of Treatment Upcoming Encounters Date Type Department Care Team (Late st Contact Info) Description 07/29/2024 3:00 PM EDT Office Visit Pulmonolgy - [place] [address] [place] [phone] Ladonna Virk NP [address] [place] [address] documented as of this encounter Visit Diagnoses Not on filedocumented in this encounter Additional Health Concerns Infection Onset Date Last Indicated Resolved Time Herpes simplex 04/24/2024 04/24/2024 Assessment Noted Time PHQ-9 Depression Total Score: 0 05/28/19 25 1:52 PM EST documented as of this encounter Care Teams Diesel Technician Mechanic Relationship Specialty Start Date End Date Trino Peterson MD [address] [place] [address] PCP - General Internal Medicine 04/23/24 documented as of this encounter
--- OUTSIDE RECORDS SUMMARY | 2024-06-26 16:34 | XMS_ITS | Clinical Summary ---
Author Organization [facility] [address] [facility] Address [address] [place] [address] Phone Care Team Providers Care Try Out Person Name Role Phone Trino Peterson MD Primary Care Provider [phone] Allergies Active Allergy Reactions Criticality Noted Date Comments Indomethacin Hives,Rash 07/31/2015 Medications Medication Sig Dispensed Refills Start Date End Date Status fluticasone furoate-vilanteroL (BREO ELLIPTA) 200-25 mcg/dose inhaler Inhale 1 [...] 10/20/2021 Active dupilumab (DUPIXENT) 300 mg/2 mL penIndications:Sev ere persistent asthma with (acute) exacerbation (CMS/HCC),Chronic obstructive pulmonary disease, unspecified COPD type (CMS/HCC) Inject 2 mL (300 mg total) under the skin every 14 (fourteen) days. 4 mL 11 04/30/2024 Active ipratropium (ATROVENT) 21 mcg (0.03 %) nasal spray Administer 2 sprays into each nostril 2 (two) times a day. 05/08/2024 Active levonorgestreL (MIRENA) 21 mcg/24hr (up to 8 yrs) 52 mg IUDIndications:Enc ounter for IUD insertion 1 Device (1 each total) by intrauterine route 1 (one) time. 05/29/2024 Active benralizumab (Fasenra) 30 mg/mL syringe Inject 1 mL into the skin every 28 days. Please Inject subcutaneously 1 ml(30 mg) every 4 weeks for 3 months then 1 ml(30 mg) every 8 weeks 03/14/2024 Discontinue d(Alternate therapy) Hospital, Clinic, or Other Facility Administered Medication Ordered Dose Route Frequency Start Date End Date Status ibuprofen (ADVIL,MOTRIN) tablet 800 mgIndications:Menorr hagaamir with regular cycle,Thickened endometrium 800 mg oral [...] Department Care Team Description 05/30/2024 Telephone Pulmonolgy - [place] [address] [facility] [address] [place] [address] Helena Lawrence MA 05/29/2024 1:00 PM EST Procedure visit Obstetrics and Gynecology - [place] [address] [place] [address] Minnie Tejada DO Encounter for IUD insertion (Primary Dx); test negative 05/23/2024 Telephone [facility] [address] [place], [place] [address], [place] [phone] Minnie Tejada DO irregular bleeding 05/16/2024 [facility] [address] [place], [place] [address], [place] [phone] Minnie Tejada DO Emergency Visit 05/14/2024 9:30 AM EST Office Visit Pulmonolgy [facility] [address] [phone] Ladonna Virk NP Severe persistent asthma with (acute) exacerbation (CMS/HCC) (Primary Dx); Chronic obstructive pulmonary disease, unspecified COPD type (CMS/HCC); Seropositive rheumatoid arthritis ([facility]); Iron deficiency anemia due to chronic blood loss; Chronic rhinitis 05/14/2024 [facility] [address] [place] [address] Minnie Tejada DO 05/13[facility] [address] [phone] Ladonna Virk NP medication 05/13/2024 Tele[facility] [address] [place] [address] Minnie Tejada DO Contraception 05/07/2024 10:45 AM EST Procedure [facility] [address] [place] [address] Minnie Tejada DO Thickened endometrium (Primary Dx); test negative; Menorrhagia with regular cycle 04/29/2024 [facility] [address] [place] [address] Viki Elkins MA Results [facility] [address] [phone] Helena Lawrence MA Medication Problem (Fasenra); Med Change Request (Dupixent) 04/25/2024 4:31 PM EST - 04/25/2024 11:59 PM EST Hospital Encounter Radiology Department - [address] [phone] Pelvic pain Discharge Disposition: Home or Self Care 04/24/2024 2:15 PM EST Office Visit Obstetrics and Gynecology - [address] [phone] Vannessa cShmidt CNM Labial lesion (Primary Dx) 04/23/2024 3:30 PM EST Office Visit Obstetrics and Gynecology - [address] [phone] Delmis Rogers CNM Vaginal irritation (Primary Dx); Pelvic pain 04/22/2024 Telephone Obstetrics and Gynecology - [address] [phone] Vannessa Schmidt CNM Vaginal/vulvar Complaint 04/10/2024 Telephone Internal Medicine - [address] [phone] Trino Peterson MD Referral (External Rheumatology) 04/04/2024 Telephone Pulmongy [facility] [address] [phone] Ladonna Virk NP Med Refill (Prescription form) [facility] [address] [phone] Ladonna Virk NP Prior authorization from Last [...] COMMENT: normal UPPER GASTROINTESTINAL ENDOSCOPY 2018 PROCEDURE: FL UPPER GI ENDOSCOPY PERFORMED; COMMENT: normal OTHER [...] episode of recurren t major depressive disorder (CMS/HCC) 04/29/2019 DX:Moderate episode of r ecurrent major depressive disorder ([facility]) Attention deficit hyperactiv ity disorder (ADHD), predominantly inattentive type 08/28/2020 DX:Attention deficit hyperac tivity disorder (ADHD), predominantly inattentive type Seropositive rheumatoid arth ritis (CMS/HCC) 08/21/2012 DX:Seropositive rheumatoid a rthritis ([facility]); COMMENT: Onset- 2010. RF positive. CCP positive. Shoulders, hands. On methotrexate approx. 2011 to mid 2012 stopped meds in (2013) Tubal ligation 02/02: Hydroxychloroquine started - stopped Feb 2016 - recurrent URI 07/10: methotrexate restarted Chronic rhinitis 10/06/2011 DX:Chronic rhin itis Mild persistent asthma with acute exacerbation 09/03/2021 DX:Mild persistent asthma wi th acute exacerbation COPD (chronic obstructive pu lmonary disease) ([facility]/HCC) DX:COPD (chronic obstructive pulmonary disease) ([facility]) Herpes genitalis type 2 Family History Medical [...] your loved ones. For example, early childhood aide classroom or elderly care for an older adult? [...] Livin g Zeny un Goldsb erry Delivery Location:[facility] Comments:gdm 2014 38w 0d M Vag-S pont [...] 3:00 PM EDT Office Visit Pulmonolgy - [place] [address] [facility] [address] [place] [phone] Ladonna Virk NP [address] [facility] [address] [place] [address] Health Maintenance Due Date Last Done Comments Pneumococcal Vaccine: Pediatrics (0 to 5 Years) and At-Risk Patients (6 to 64 Years) (1 of 2 - PCV) 1988 Hepatitis B Vaccines (1 of 3 - 19+ 3-dose series) 2001 HPV Vaccines (3 - Risk 3-dose series) 11/24/2008 07/25/2008, 2008 Breast Cancer Screening 12/14/2019 12/13/2017, 12/12 COVID-19 Vaccine (2023- season) 2024 12/28/2021, 09/07/2020, 08/12/2020 Influenza Vaccine [...] Procedure Name Priority Date/Time Associated Diagnosis Comments EXTERNAL CLINICAL LAB 06/24/2024 POC , URINE DIAGNOSTIC Routine 05/29/2024 2:15 PM EST test negative Encounter for IUD insertion FL INSERTION INTRAUTERINE DEVICE Routine 05/29/2024 1:33 PM EST Encounter for IUD insertion TISSUE EXAM Routine 05/07/2024 11:32 AM EST Menorrhagia with regular cycle Thickened endometrium POC , URINE DIAGNOSTIC Routine 05/07/2024 11:25 AM EST test negative FL ENDOMETRIAL SAMPLING W/WO ENDOCERVICAL SAMPLING W/O CERVICAL [...] Routine 04/23/2024 3:57 PM EST Vaginal irritation DEPRESSION SCREENING Routine 09/14/2023 LIPID PANEL Routine 09/14/2023 HEPATITIS C SCREENING Routine 04/21/2021 HIV SCREENING Routine 04/21/2021 HPV Routine 08/17/2020 DX MAMMO INCL CAD UNI Routine 12/13/2017 1:39 PM EDT Unspecified lump in unspecified breast from Last 3 Months or Most Recently Relevant to Health Maintenance Results * External clinical lab (06/24/2024) Provider [facility] BLOOD ORDERA BLES * POC , urine manually resulted (05/29/2024 2:15 PM EST) Only the most recent of2 resultswithin the time period is included. HCG, Ur POC Negative Negative POC hCG Int QC Pass? Yes Yes Urine Urine specimen obtained by clean catch procedure / Unknown 05/29/2024 2:15 PM EST Minnie Tejada DO POINT OF CARE TEST E NTER/EDIT ORDERABLES * FL INSERTION INTRAUTERINE DEVICE (05/29/2024 1:33 PM EST) [...] up for string check: yes ?? Minnie Mallory DO IN CLINIC/BEDSIDE OR DERABLES * Tissue Exam (05/07/2024 11:32 AM EST) Final Diagnosis Endometrium, biopsy: Proliferative endometrium with stromal breakdown. No hyperplasia, atypia, or neoplasia identified. 05/09/2024 3:58 PM EST [facility] ([facility]) [facility] Gross Description A. Endometrium, biopsy: Labeled endo, EMB . Received in formalin is an approximately 2.0 x 1.0 x 0.3 cm aggregate of soft, naylor-brown tissue fragments, which is wrapped in paper and submitted in toto in one cassette, multiple pieces, x2. Please note: Small tissue fragments may not survive processing. hernandez/UMANG 05/09/2024 3:58 PM EST [facility] Disclaimer Unless otherwise specified, all tissue is 10% NB formalin fixed and paraffin embedded. 05/09/2024 3:58 PM EST [facility] Tissue Endometrial structure / Unknown Non-blood Collection / Unknown 05/07/2024 11:32 AM EST 05/07/2024 11:32 AM EST Minnie Tejada DO LAB PATHOLOGY ORDERA GUSTAVO [facility]) [facility] [address] [place] [address], * FL ENDOMETRIAL SAMPLING W/WO ENDOCERVICAL SAMPLING W/O CERVICAL [...] thickened endometrial complex. ??Further workup suggested. POS [id number] -------- FINAL REPORT -------- Dictated By: Erica Patrick Dictated Date: 04/25/2024 22:31 ET Assigned Physician: Erica Patrick Reviewed and Electronically Signed By: Erica Patrick Signed Date: 04/25/2024 22:40 ET Workstation ID: [id number] Transcribed By: Self Edit Transcribed Date: 04/25/2024 [...] borderline thickened endometrial complex. Further workupsuggested. POS [id number] -------- FINAL REPORT -------- Dictated By: Erica Patrick Dictated Date: 04/25/2024 22:31 ET Assigned Physician: Erica Patrick Reviewed and Electronically Signed By: Erica Patrick Signed Date: 04/25/2024 22:40 ET Workstation ID: [id number] Transcribed By: Self Edit Transcribed Date: 04/25/2024 22:31 ET Delmis GRIFFIN IMG US PROCEDUR ES * (ABNORMAL) Culture Herpes simplex virus (04/24/2024 2:42 PM EST) Specimen Source Urogenital - Vagina 04/29/2024 3:04 PM EST [facility] HSVC Interpretation Herpes Simplex Virus Type 2 ISOLATED(A) No Growth 04/29/2024 3:04 PM EST [facility] Comment: This method utilizes standard tube [...] below the detection threshold. Test performed at [facility], [address] , [place], [place] ??[address] ? [phone] Gris Sadler MD, PhD - Liquor Rectifier Swab Vaginal structure / Unknown Non-blood Collection / Unknown 04/24/2024 2:42 PM EST 04/24/2024 2:42 PM EST Vannessa Schmidt CNM LAB MICROBIOLOGY - G ENERAL ORDERABLES [facility] [address] [place] [address] * (ABNORMAL) POC Urine Auto W/O Micro (04/23/2024 4:08 PM EST) Glucose UA POC Negative Negative, Trace mg/dL Bilirubin UA POC Negative Negative, Small Ketones UA POC Negative Negative, Trace Specific [place] UA POC <=1.005 Blood UA POC Trace(A) [...] Culture urine (04/23/2024 4:04 PM EST) Pathologist [facility] Culture, Urine No growth 04/24/2024 1:42 PM EST [facility] Urine Urine specimen obtained by clean catch procedure / Unknown Non-blood Collection / Unknown 04/23/2024 4:04 PM EST 04/23/2024 4:04 PM EST Delmis GRIFFIN LAB MICROBIOLOG Y - GENERAL ORDERABLES [facility] [address] [place] [address], * Trichomonas vaginalis antigen (04/23/2024 3:57 PM EST) Trichomonas vaginalis Negative Negative 04/23/2024 8:46 PM EST [facility] Swab Vaginal structure / Unknown Non-blood Collection / Unknown 04/23/2024 3:57 PM EST 04/23/2024 3:57 PM EST Delmis Rogers CNM LAB MICROBIOLOG Y - GENERAL ORDERABLES Performing Organization Address City/[facility] Co de Phone Number [facility] [address] [place] [address], * Chlamydia trachomatis and Neisseria gonorrhoeae molecular study (04/23/2024 3:57 PM EST) Neisseria gonorrhoeae PCR Negative Negative LAB MOLECULAR DIAGNOSTICS METHOD 04/24/2024 9:58 AM EST [facility] Chlamydia trachomatis PCR Negative Negative LAB MOLECULAR DIAGNOSTICS METHOD 04/24/2024 9:58 AM EST [facility] Swab Endocervical structure / Unknown Non-blood Collection / Unknown 04/23/2024 3:57 PM EST 04/23/2024 3:57 PM EST Delmis GRIFFIN LAB MICROBIOLOG Y - GENERAL ORDERABLES Performing Organization Address [facility] Phone Number [facility] [address] [place] [address], * Wet prep, genital (04/23/2024 3:57 PM EST) Clue Cells, Wet Prep Negative Negative 04/23/2024 8:45 PM EST [facility] Yeast, Wet Prep Negative Negative 04/23/2024 8:45 PM EST [facility] Trichomonas, Wet Prep Indeterminate Negative 04/23/2024 8:45 PM EST [facility] Comment:Refer to Trichomonas antigen. Swab Vaginal structure / Unknown Non-blood Collection / Unknown 04/23/2024 3:57 PM EST 04/23/2024 3:57 PM EST Delmis GRIFFIN LAB MICROBIOLOG Y - GENERAL ORDERABLES Performing Organization Address City/[facility]/ZIP Co de Phone Number [facility] ([facility]) [facility] [address] [place] [address], * Depression Screening (09/14/2023) Pathologist [facility] Depression Screening Abstracted Historical [facility] * Lipid panel (09/14/2023) [facility] LDL/HDL Ratio 2 0 - 4 Triglycerides 51 0 - 150 mg/dL Cholesterol 148 0 - 200 mg/dL HDL 68 40 mg/dL LDL Cholesterol 70 0 - 100 mg/dL Blood Venous blood specimen / Unknown Historical Provider LAB BLOOD ORDERAB LES * HIV Screening (04/21/2021) [facility] HIV Screening Abstracted Historical Provider [facility] * Hepatitis C Screening (04/21/2021) [facility] Hepatitis C Screening Abstracted Historical Provider [facility] * Cervical Cancer Screening: HPV (08/17/2020) [facility] Cervical Cancer Screening: HPV Negative, Abstracted Historical Provider [facility] E * DX MAMMO INCL CAD UNI [...] Indicated Herpes simplex 04/24/2024 04/24/2024 Care Teams Try Out Person Relationship Specialty Start Date End Date Trino Peterson MD [address] [place] [id number] PCP - General Internal Medicine 04/23/24
--- OUTSIDE RECORDS SUMMARY | 2024-06-26 16:34 | XMS_ITS | Encounter Summary ---
Author Organization [facility] Address [address] [place] [address] Care Team Providers Care Brown Sourer Name Role Phone Trino Peterson MD Primary Care Provider [phone] Encounter Details Date Type Department Care Team Description 03/22/2022 Orders Only Pulmonology - [place] [address] [facility] [address] [place] [phone] Ladonna Virk, CRUSHER FOREMAN 175 [facility] [address] [place] [phone] Moderate persistent asthma with status asthmaticus Social History Tobacco Use Types Packs/Day Years [...] suspected to have Coronavirus/COVID-19? No / Unsure 03/22/2022 8:53 AM EDT documented as of this encounter Plan of Treatment Not on file documented as of this encounter Procedures Procedure Name Priority Date/Time Associated Diagnosis Comments CHG RADIOLOGIC EXAM CHEST 2 VIEWS Routine 03/22/2022 Moderate persistent asthma with status asthmaticus documented in this encounter Results * RADIOLOGIC EXAM CHEST 2 VIEWS (03/22/2022) Ladonna Moose [facility] documented in this encounter Visit Diagnoses Diagnosis Moderate persistent asthma with status asthmaticus Unspecified asthma, with status asthmaticus documented in this encounter Care Teams Brown Sourer Relationship Specialty Start Date End Date Trino Peterson MD [address] [place] [address] PCP - General Internal Medicine 08/06/18 documented as of this encounter
--- OUTSIDE RECORDS SUMMARY | 2024-06-26 16:34 | XMS_ITS | Encounter Summary ---
Author Organization [facility] [place] [address] Care Team Providers Care Automotive Artist Name Role Phone Trino Peterson MD Primary Care Provider [phone] Reason for Visit * Reason Onset Date Comments Medication Problem 04/26/2024 Fasenra Med Change Request 04/26/2024 Dupixent Encounter Details Date Type Department Care Team (Late st Contact Info) Description 04/26/2024 Telephone [facility] [address] [facility] [address] [place] [phone] Helena Lawrence MA Medication Problem (Fasenra); Med [...] for your loved ones. For example, child life therapist or elderly care for an older adult? [...] Dupixent approval that patient needs to contact [facility] my way at [phone]. Medication will be faxed to [employer] at [phone] * Helena Pimentel MA - 04/30/2024 2:15 PM EST Approved Start Date:04/26/2024 End Date: 04/26/2025 Authorization Expiration Date: 04/25/2025. Please print medication so we can send it to [employer], then will contact patient to informed that medication was approved [employer] [facility] No Results [address] [facility], [id number] * Helena Pimentel MA - 04/29/2024 2:29 PM EST [facility] * Ladonna Virk NP - 04/26/2024 3:53 [...] 2023. [facility] suggested to contact patient insurance [facility] to find out what they can help me to approve this medication once I gave them patient information they couldn't find patient into their system. Can we start Dupixent since we been waiting since February 13 documented in this encounter Plan of Treatment Upcoming Encounters Date Type Department Care Team (Late st Contact Info) Description 07/29/2024 3:00 PM EDT Office Visit Pulmonolgy - [place] [address] [place] [address] Ladonna Virk NP [address] [place] [address] documented as of this encounter Visit Diagnoses Diagnosis Severe persistent asthma with (acute) exacerbation (CMS/HCC)- Primary Chronic obstructive pulmonary disease, unspecified COPD type (CMS/HCC) documented in this encounter Additional Health Concerns Infection Onset Date Last Indicated Resolved Time Herpes simplex 04/24/2024 04/24/2024 documented as of this encounter Care Teams Automotive Artist Relationship Specialty Start Date End Date Trino Peterson MD [address] [place] [address] PCP - General Internal Medicine 04/23/24 documented as of this encounter
--- OUTSIDE RECORDS SUMMARY | 2024-06-26 16:34 | XMS_ITS | Encounter Summary ---
Author Organization [facility] Address [address] [place] [address] Care Team Providers Care Lunchroom Attendant Name Role Phone Trino Peterson MD Primary Care Provider [phone] Pankaj Jalloh MD Primary Care Provider [facility] Trino Peterson MD Primary Care Provider [phone] Encounter Details Date Type Department Care Team Description 02/08/2016 Social Work Manager Report Medical Records [address] [place] [address] William Juarez MD Social History Tobacco Use [...] on filedocumented in this encounter Care Teams Lunchroom Attendant Relationship Specialty Start Date End Date Trino Peterson MD [address] [place] [address] PCP - General 03/21/01 07/04/18 Pankaj Jalloh MD [address] [place] [address] PCP - General Pediatrics 07/05/18 08/05/18 Trino Peterson MD [address] [place] [address] PCP - General Internal Medicine 08/06/18 documented as of this encounter
== END 2024-06-26 16:26 | disposition home or self-care (01) ==
PROVIDERS: PCP Internal Medicine; Visit Provider Student in an Organized Health Care Education/Training Program
DX: M06.09 Rheumatoid arthritis without rheumatoid factor, multiple sites (principal)
CPT/HCPCS: 99215; G2211

== ENCOUNTER → 2024-06-26 15:53 | Outpatient (BNVA) | payer OTHER, SELFPAY | PROVIDERS: PCP Internal Medicine; Visit Provider Student in an Organized Health Care Education/Training Program | DX: M06.9 Rheumatoid arthritis, unspecified (principal) | CPT/HCPCS: 99212 ==

== ENCOUNTER → 2024-08-16 13:28 | Outpatient (BNVA) | payer OTHER, SELFPAY | PROVIDERS: PCP Internal Medicine; Visit Provider Student in an Organized Health Care Education/Training Program ==

== ENCOUNTER 2024-08-24 09:36 | Outpatient (REF) | payer OTHER, SELFPAY ==
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
--- OUTSIDE RECORDS SUMMARY | 2024-08-24 09:38 | XMS_ITS | Clinical Summary ---
Author Organization [facility] [address] [place] [address] Address [address] [place] [address] Phone Care Team Providers Care Balloon Pilot Name Role Phone Trino Peterson MD Primary Care Provider [phone] Allergies Active Allergy Reactions Criticality Noted Date Comments Indomethacin Hives,Rash 07/31/2015 Medications fluticasone furoate-vilanter oL (BREO ELLIPTA) 200-25 mcg/dose inhaler Inhale 1 puff by mouth. 4 Active tiotropium (Spiriva Respimat) 2.5 mcg/actuation inhalation spray Inhale 1 puff by mouth. 4 Active acetaminophen (TYLENOL) 500 mg tablet TAKE 2 TABLETS BY MOUTH 4 TIMES A DAY NEEDED FOR PAIN FOR 7 DAYS 4 Active ferrous sulfate 325 mg (65 mg elemental iron) tablet Take 1 tablet (325 mg total) by mouth 1 (one) time each day. 4 Active cholecalciferol (VITAMIN D-3) 50 mcg (2,000 unit) capsule Take 1 capsule (2,000 Units total) by mouth 1 (one) time each day. 4 Active albuterol 2.5 mg /3 mL (0.083 %) nebulizer solution Take 1 Vial by nebulization every 4 hours as needed for Wheezing, Shortness of Breath or Cough for up to 180 days. 4 Active albuterol sulfate (ProAir RespiClick) 90 mcg/actuation aerosol powdr breath activated Inhale 108 mcg into the lungs every 6 hours as needed for Other (SOB). 4 Active fluticasone propionate (FLONASE) 50 mcg/actuation nasal spray SPRAY 2 SPRAYS BY NASAL ROUTE DAILY 4 Active betamethasone, augmented, (DIPROLENE-AF) 0.05 % cream Apply to eczema patches twice a day for up to 14 days then as needed 4 Active hydrOXYzine HCL (ATARAX) 25 mg tablet Take 1-2 tablets (25-50 mg total) by mouth. 4 025 Active loratadine (CLARITIN) 10 mg tablet Take 1 tablet (10 mg total) by mouth 1 (one) time each day. 4 Active montelukast (SINGULAIR) 10 mg tablet Take 1 tablet (10 mg total) by mouth. 4 Active methotrexate 2.5 mg tablet Take 1 tablet (2.5 mg total) by mouth 4 Active folic acid (FOLVITE) 1 mg tablet Take 1 tablet (1,000 mcg total) by mouth 1 (one) time each day. 2 Active dupilumab (DUPIXENT) 300 mg/2 mL penIndications:S evere persistent asthma with (acute) exacerbation (CMS/HCC),Chroni c obstructive pulmonary disease, unspecified COPD type (CMS/HCC) Inject 2 mL (300 mg total) under the skin every 14 (fourteen) days. 4 mL 11 4 Active ipratropium (ATROVENT) 21 mcg (0.03 %) nasal spray Administer 2 sprays into each nostril 2 (two) times a day. 4 Active levonorgestreL (MIRENA) 21 mcg/24hr (up to 8 yrs) 52 mg IUDIndications:E ncounter for IUD insertion 1 Device (1 each total) by intrauterine route 1 (one) time. 5 Active Hospital, Clinic, or Other Facility Administered Medication Ordered Dose Route Frequency Start Date End Date Status ibuprofen (ADVIL,MOTRIN) tablet 800 mgIndications:Menorrhagia with regular cycle,Thickened endometrium 800 mg oral Once 05/07/2024 Active Active Problems Problem Noted Date Diagnosed Date [...] Care Team Description 05/30/2024 Telephone Pulmonolgy - [place] [address] [facility] [address] [place] [address] Roscoe Pimentel [facility] [place] 05/29/2024 1:00 PM EST Procedure visit Obstetrics and Gynecology - [place] [address] [place] [address] Minnie Tejada DO Encounter for IUD insertion (Primary Dx); test negative from Last 3 Months Immunizations Name Administration [...] COMMENT: normal UPPER GASTROINTESTINAL ENDOSCOPY 2018 PROCEDURE: NM UPPER GI ENDOSCOPY PERFORMED; COMMENT: normal OTHER [...] episode of r ecurrent major depressive disorder (HCC) Attention deficit hyperactiv ity disorder (ADHD), predominantly inattentive type 08/28/2020 DX:Attention deficit hyperac tivity disorder (ADHD), predominantly inattentive type Seropositive rheumatoid arth ritis (CMS/HCC) 08/21/2012 DX:Seropositive rheumatoid a rthritis ([facility]); COMMENT: Onset- 2010. RF positive. CCP positive. Shoulders, hands. On methotrexate approx. 2011 to mid 2012 stopped meds in (2013) Tubal ligation 02/02: Hydroxychloroquine started - stopped Feb 2016 - recurrent URI 07/10: methotrexate restarted Chronic rhinitis 10/06/2011 DX:Chronic rhin itis Mild persistent asthma with acute exacerbation 09/03/2021 DX:Mild persistent asthma wi th acute exacerbation COPD (chronic obstructive pu lmonary disease) ([facility]/HCC) DX:COPD (chronic obstructive pulmonary disease) ([facility]) Herpes genitalis type 2 Family [...] for your loved ones. For example, child support specialist or elderly care for an older [...] What is your living situation? 1 07/07/2023 Comments No Sex and Gender Information Value Date Recorded Sex Assigned at Not on file Legal Sex Female 8:33 PM EST Gender Identity Not on file Sexual Orientation Not on file Obstetrics History Para Term [...] Livin g Zeny un Goldsb erry Delivery Location:[facility] Comments:[id number] 0d M Vag-S [...] Care Team (Late st Contact Info) Description 10/16/2024 4:00 PM EDT Office Visit Pulmonolgy - [place] [address] [place] [id number] Ladonna Virk, [place] [address] [facility] [address] [place] [address] Health Maintenance Due Date Last Done Comments Hepatitis B Vaccines (1 of 3 - 19+ 3-dose series) 2001 Pneumococcal Vaccine: Pediatrics (0 to 5 Years) and At-Risk Patients (6 to 64 Years) (1 of 2 - PCV) 2001 HPV Vaccines (3 - Risk 3-dose series) 11/24/2008 07/25/2008, 2008 Breast Cancer Screening 12/14/2019 12/13/2017, 12/12 COVID-19 Vaccine ( - 2023- season) 2024 12/28/2021, 09/07/2020, 08/12/2020 Influenza Vaccine [...] patient's age to complete this topic Meningococcal B Vacine Aged Out No lo nger eligible based on patient's age to complete [...] EST test negative Encounter for IUD insertion NM INSERTION INTRAUTERINE DEVICE Routine 05/29/2024 1:33 PM EST Encounter for IUD insertion DEPRESSION SCREENING Routine 09/14/2023 LIPID PANEL Routine 09/14/2023 HEPATITIS C SCREENING Routine 04/21/2021 HIV SCREENING Routine 04/21/2021 HPV Routine 08/17/2020 DX MAMMO INCL CAD UNI Routine 12/13/2017 1:39 PM EDT Unspecified lump in unspecified breast from Last 3 Months or Most Recently Relevant to Health Maintenance Results * External clinical lab (06/24/2024) Provider [facility] LAB BLOOD ORDERABLES Fin al Result * POC , urine manually resulted (05/29/2024 2:15 PM EST) HCG, Ur POC Negative Negative POC hCG Int QC Pass? Yes Yes Urine Urine specimen obtained by clean catch procedure / Unknown 05/29/2024 2:15 PM EST Minnie Mallory DO POINT OF CARE TEST ENTER/EDIT ORDERABLES Final Result * NM INSERTION INTRAUTERINE DEVICE (05/29/2024 1:33 PM EST) Minnie Clarke DO - 05/29/2024 1:33 PM EST Minnie [...] yes ?? Minnie Tejada DO IN CLINIC/BEDSIDE ORDERABLES Final Result * Depression Screening (09/14/2023) Pathologist [facility] Depression Screening Abstracted Result [facility] Provider HEALTH MAINTENANCE Final Result * Lipid panel (09/14/2023) [facility] LDL/HDL Ratio 2 0 - 4 Triglycerides 51 0 - 150 mg/dL Cholesterol 148 0 - 200 mg/dL HDL 68 >=40 mg/dL LDL Cholesterol 70 0 - 100 mg/dL Blood Venous blood specimen / Unknown Result [facility] Provider LAB BLOOD ORDERABLES Regina l Result * HIV Screening (04/21/2021) [facility] HIV Screening Abstracted Result [facility] Provider HEALTH MAINTENANCE Final Result * Hepatitis C Screening (04/21/2021) [facility] Hepatitis C Screening Abstracted Result [facility] Provider HEALTH MAINTENANCE Final Result * Cervical Cancer Screening: HPV (08/17/2020) [facility] Cervical Cancer Screening: HPV Negative, Abstracted Result [facility] Provider HEALTH MAINTENANCE Final Result * DX MAMMO INCL CAD UNI (12/13/2017 1:39 PM EDT) Anatomical Region Laterality Modality Mammography 12/12/2017 4:15 PM EDT Narrative 12/21/2017 2:05 PM EDT Please see combined report, same date. Procedure Note Anel Chávez MD - 05/10/2022 Please see combined report, same date. Vannessa Schmidt CNM IMG BI PROCEDURES Final Resu lt from Last 3 Months or Most Recently Relevant to Health Maintenance Additional Health Concerns Infection Onset Date Last Indicated Herpes simplex 04/24/2024 04/24/2024 Insurance [facility] Care Teams Balloon Pilot Relationship Specialty Start Date End Date Trino Peterson MD [address] [place] [id number] PCP - General Internal Medicine 04/23/24
[2024-08-24 09:56] LABS: MANUAL DIFF FLAG NO
[2024-08-24 10:27] LABS: Basophils Absolute Auto 0.1 X10*3/uL (0.0-0.2); Basophils Percent Auto 1.2 % (0-2); Eosinophils Absolute Auto 0.4 X10*3/uL (0.0-0.4); Eosinophils Percent Auto 6.3 % (0-4); Hemoglobin 9.4 g/dl (12.0-16.0); Imm Gran Abs Auto 0.01 X10*3/uL (0.00-0.03); Imm Gran Pct Auto 0.2 % (0.0-0.4); Lymphocytes Absolute Auto 2.9 X10*3/uL (1.2-4.9); Lymphocytes Percent Auto 48.6 % (20-40); Mean Corpuscular HGB Conc 31.3 g/dl (31.0-35.0); Mean Corpuscular Hemoglobin 24.4 pg (27.0-33.0); Mean Corpuscular Volume 77.9 fL (80.0-98.0); Mean Platelet Volume 9.9 fL (9.4-12.3); Monocytes Absolute Auto 0.5 X10*3/uL (0.1-1.2); Neutrophils Absolute Auto 2.1 x10*3/uL (2.0-8.3); Neutrophils Percent Auto 35.7 % (45-73); Platelet Count 468 X10*3/uL (160-400); Red Blood Count 3.85 X10*6/uL (4.20-5.50); Red Cell Distribution Width 17.3 % (11.0-16.0); White Blood Count 5.9 X10*3/uL (4.8-10.8)
[2024-08-24 11:03] LABS: Alanine Aminotransferase 12 U/L (0-31); Albumin Level 3.8 g/dL (3.5-5.0); Alkaline Phosphatase 46 U/L (39-117); Anion Gap 8 (12-20); Aspartate Amino Transferase 21 U/L (5-31); Bilirubin Total 0.4 mg/dL (0.0-1.0); Blood Urea Nitrogen 11 mg/dL (9-16); C Reactive Protein 0.14 mg/dL (< or = 0.50); Calcium 8.3 mg/dL (8.4-10.2); Carbon Dioxide 24 mmol/L (22-29); Chloride 112 mmol/L (96-108); Estimated Glomerular Filt Rate > 60; Glucose Random 101 mg/dL (60-115); Potassium 3.9 mmol/L (3.3-5.1); Sodium 140 mmol/L (135-145); Total Protein 6.9 g/dL (6.5-8.0)
[2024-08-24 11:15] LABS: Erythrocyte Sedimentation Rate 28 MM/HR (0-20)
[2024-08-26 17:43] LABS: CRP High Sensitivity 1.3 mg/L
== END 2024-08-24 09:37 | disposition home or self-care (01) ==
LOC: HO.LAB 09:36
PROVIDERS: PCP Internal Medicine; Visit Provider Student in an Organized Health Care Education/Training Program
DX: M05.9 Rheumatoid arthritis with rheumatoid factor, unspecified (principal); M06.9 Rheumatoid arthritis, unspecified; Z79.899 Other long term (current) drug therapy
CPT/HCPCS: 36415; 80053; 85025; 85652; 86140; 86141